=== PATIENT | female | born 1950 | race Caucasian/White ===

== ENCOUNTER 2017-11-29 12:04 | Inpatient (IN) | payer BC, MEDICARE ==
[2017-11-29] MEDS ORDERED: NORMAL SALINE 1000 ML 1,000 ML IV ONE ×3 (12:55→17:44)
[2017-11-29 13:35] LABS: VENOUS BLOOD BASE EXCESS 0.1 mmol/L; VENOUS BLOOD HCO3 26.2 mmol/L (20-32); VENOUS BLOOD PCO2 48.5 mmHg (35-63); VENOUS BLOOD PH 7.35 (7.30-7.42)
[2017-11-29 13:40] LABS: HEMATOCRIT 28.7 % (36.0-47.0); HEMOGLOBIN 9.6 g/dL (12.0-15.5); MEAN CORPUSCULAR HEMOGLOBIN 29.7 pg (27.0-33.4); MEAN CORPUSCULAR HGB CONC 33.6 g/dL (32.0-36.0); MEAN CORPUSCULAR VOLUME 88 fl (80-97); PLATELET COUNT 211 10^3/uL (150-450); RED BLOOD COUNT 3.25 10^6/uL (3.72-5.28); RED CELL DISTRIBUTION WIDTH 16.3 % (11.5-14.0); WHITE BLOOD COUNT 7.9 10^3/uL (4.0-10.5)
[2017-11-29 13:52] LABS: ALANINE AMINOTRANSFERASE 22 U/L (9-52); ALBUMIN 3.4 g/dL (3.5-5.0); ALKALINE PHOSPHATASE 58 U/L (38-126); ANION GAP 12 (5-19); ASPARTATE AMINO TRANSFERASE 40 U/L (14-36); BILIRUBIN,DIRECT 0.3 mg/dL (0.0-0.4); BILIRUBIN,TOTAL 0.5 mg/dL (0.2-1.3); BLOOD UREA NITROGEN 16 mg/dL (7-20); CALCIUM 8.2 mg/dL (8.4-10.2); CARBON DIOXIDE 24 mmol/L (22-30); CHLORIDE 103 mmol/L (98-107); GLUCOSE 87 mg/dL (75-110); POTASSIUM 4.4 mmol/L (3.6-5.0); SODIUM 138.7 mmol/L (137-145); TOTAL PROTEIN 6.5 g/dL (6.3-8.2)
[2017-11-29 14:11] LABS: ABSOLUTE LYMPHOCYTES# (MANUAL) 0.6 10^3/uL (0.5-4.7); ABSOLUTE MONOCYTES # (MANUAL) 0.5 10^3/uL (0.1-1.4); ABSOLUTE NEUTROPHILS# (MANUAL) 6.8 10^3/uL (1.7-8.2); ANISOCYTOSIS SLIGHT; BAND NEUTROPHILS % (MANUAL) 7 % (3-5); BASOPHILS % (MANUAL) 1 % (0-2); EOSINOPHILS % (MANUAL) 0 % (0-6); LYMPHOCYTES % (MANUAL) 7 % (13-45); MONOCYTES % (MANUAL) 6 % (3-13); PLATELET COMMENT ADEQUATE; SEGMENTED NEUTROPHILS % (MAN) 79 % (42-78); TOTAL CELLS COUNTED 100; TOXIC GRANULATION SLIGHT; TOXIC VACUOLATION PRESENT
--- NOTE | 2017-11-29 14:26 | RADIOLOGY REPORT (SQ) ---
EXAM DESCRIPTION: CHEST 2 VIEWS COMPLETED DATE/TIME: 11/29/2017 1:52 pm REASON FOR STUDY: cough, SOB, LLL crackles COMPARISON: None. EXAM PARAMETERS: NUMBER OF VIEWS: two views TECHNIQUE: Digital Frontal and Lateral radiographic views of the chest acquired. RADIATION DOSE: NA LIMITATIONS: none FINDINGS: LUNGS AND PLEURA: There is pleural thickening with ground-glass opacities at the right upp er lobe. No pleural effusion or pneumothorax. MEDIASTINUM AND HILAR STRUCTURES: Contour within normal limits. HEART AND VASCULAR STRUCTURES: Heart normal size. No evidence for failure. BONES: Degenerative changes at the spine. HARDWARE: Surgical clips are noted at the left lower hemithorax. OTHER: There is a large hiatal hernia. IMPRESSION: 1. Pleural thickening with ground-glass opacities at the right upper lobe, may represen t chronic change versus pneumonia or neoplasm. No prior studies are available for comparison. Evalu ation with CT thorax as clinically warranted. 2. Large hiatal hernia. TECHNICAL DOCUMENTATION: JOB ID: [id number] 2010 [employer]- All Rights Reserved Reading location - IP/workstation name: [email or web address]
[2017-11-29] MEDS ORDERED: CEFTRIAXONE 1 GM/D5W RTU 1 GM/50 ML RTUPB IV ONE (15:01)
[2017-11-29] MEDS ORDERED: ALBUTEROL SULFATE 0.083% NEB 2.5 MG/3 ML AMPUL NEB ONE ×2 (15:10)
[2017-11-29 16:02] LABS: ARTERIAL BLOOD BASE EXCESS -4.1 mmol/L; ARTERIAL BLOOD FIO2 6L; ARTERIAL BLOOD H2CO3 1.04 mmol/L (1.05-1.35); ARTERIAL BLOOD HCO3 20.1 mmol/L (20-26); ARTERIAL BLOOD O2 SATURATION 98.2 % (94-98); ARTERIAL BLOOD PCO2 34.5 mmHg (35-45); ARTERIAL BLOOD PH 7.38 (7.35-7.45); ARTERIAL BLOOD PO2 116.9 mmHg (80-100); ARTERIAL BLOOD TOTAL CO2 21.2 mmol/L (21-25)
--- NOTE | 2017-11-29 16:21 | ER Document Report ---
ED General - General Stated Complaint: SHORTNESS OF BREATH Time Seen by Provider: 11/29/17 12:40 Mode of Arrival: Medic Notes: 67-year-old female presents emergency department complaining of having a cold for the past 3 days. Patient states it started out as a productive cough but has progressively worsened and is now described as moderate shortness of breath with severe dyspnea on exertion. Patient states she was walking across the parking lot to go to work and she had to sit down she was so short of breath. Patient ended up calling 911 and was brought in by EMS. Patient was initially seen at [facility] however they transported her from [facility] to here because her blood pressure was 80/60 and she had an oxygen saturation of 92% on room air. Patient denies any chest pain, complains of chronic rhinorrhea but no new rhinorrhea. Patient admits sweats and chills at home but states her thermometer was broken. - Related Data Allergies/Adverse Reactions: No Known Allergies Allergy (Verified 12/08/13 07:38) Past Medical History - General Information source: Patient - Social History Smoking Status: Never Smoker Frequency of alcohol use: Occasional Drug Abuse: None Family History: CAD - Past Medical History Cardiac Medical History: Denies: Hx Coronary Artery Disease, Hx Heart Attack, Hx Hypertension Pulmonary Medical History: Denies: Hx Asthma, Hx Bronchitis, Hx COPD, Hx Pneumonia Neurological Medical History: Denies: Hx Cerebrovascular Accident, Hx Seizures Musculoskeletal Medical History: Denies Hx Arthritis Past Surgical History: Denies: Hx Hysterectomy, Hx Pacemaker - Immunizations Hx Diphtheria, Pertussis, Tetanus Vaccination: Yes Review of Systems - Review of Systems Constitutional: See HPI, Chills, Diaphoresis, Fever EENT: See HPI - Chronic rhinorrhea Cardiovascular: See HPI, Dyspnea Respiratory: See HPI, Cough, Short of breath -: Yes All other systems reviewed and negative Physical Exam - Vital signs Vitals: No tachypnea, no tachycardia, afebrile, 95% on room air while resting in the bed. At 1622 the patient has a heart rate of 95, pulse ox of 98% on 4 L, blood pressure of 106/61. Please see nursing notes which will be eventually updated to include vitals throughout her emergency department stay. - Notes Notes: GENERAL: Alert, interacts well. No acute distress. HEAD: Normocephalic, atraumatic EYES: Pupils equal, round and reactive to light, extraocular movements intact. ENT: Oral mucosa moist, tongue midline. NECK: Full range of motion, supple, trachea midline. LUNGS: Left lower lobe rhonchi, trace expiratory wheezing in the left lower lobe , otherwise clear to auscultation, initially no respiratory distress whatsoever.. HEART: Regular rate and rhythm, no murmurs, gallops, rubs. ABDOMEN: Soft, nontender, nondistended, bowel sounds present in all 4 quadrants. EXTREMITIES: Moves all 4 extremities spontaneously, no edema, radial and dorsalis pedis pulses 2/4 bilaterally. No cyanosis. NEUROLOGICAL: Alert and oriented x3, normal speech. PSYCH: Normal mood, normal affect. SKIN: Warm, Dry, normal turgor, no rashes or lesions noted. Course - Re-evaluation Re-evalutation: 11/29/17 16:24 CBC shows chronic anemia with hemoglobin 9.6, there is a bandemia although there is not need cytosis, CMP grossly unremarkable, calcium slightly low at 8.2 , chest x-ray surprisingly shows right upper lobe pleural thickening versus ground with groundglass opacities which represents chronic change versus pneumonia or neoplasm. There is also a large hiatal hernia. Partly through her emergency department stay the patient became cyanotic around her lips and fingertips and her fingers were quite cool, we had a very poor we are waiting on the pulse oximeter, we warmed her hands her pulse oximeter actually read 94% on 4 L via nasal cannula. Arterial blood gas showed PCO2 of 34.5, PO2 of 116.9 and an oxygen saturation of 98.2%. This supports my suspicion that the patient is not truly hypoxic and that the pallor and appearance of cyanosis peripherally is more related to vasoconstriction rather than true hypoxia. Patient did have trace wheezing so she was given albuterol. Discussed the patient with Dr. Cardoso from the hospitalist service who agrees to admit the patient to her service. Patient was given antibiotics in the form of Rocephin. EKG is not ischemic. - Laboratory Result Diagrams: 11/29/17 13:20 11/29/17 13:20 Laboratory results interpreted by me: 11/29/17 11/29/17 11/29/17 13:20 13:20 15:30 RBC 3.25 L Hgb 9.6 L Hct 28.7 L RDW 16.3 H Seg Neuts % (Manual) 79 H Band Neutrophils % 7 H Lymphocytes % (Manual) 7 L Carbonic Acid 1.04 L ABG pCO2 34.5 L ABG pO2 116.9 H ABG O2 Saturation 98.2 H Calcium 8.2 L AST 40 H Albumin 3.4 L - EKG Interpretation by Me Additional EKG results interpreted by me: 11/29/17 16:26 EKG shows sinus rhythm at a rate of 85, normal axis, normal intervals, no ST segment elevations or depressions, there is rapid R-wave progression per my interpretation. Discharge - Discharge Clinical Impression: Right upper lobe pneumonia Qualifiers: Pneumonia type: due to unspecified organism Qualified Code(s): J18.1 - Lobar pneumonia, unspecified organism Condition: Fair Disposition: ADMITTED INPATIENT Admitting Provider: [place] [facility] Unit Admitted: IMCU Referrals: HUGO NAVARRO FNP [Primary Care Provider] - Follow up as needed
[2017-11-29] MEDS ORDERED: ACETAMINOPHEN 325 MG TABLET PO PRN (17:26)
[2017-11-29] MEDS ORDERED: NORMAL SALINE 1000 ML 1,000 ML IV PRN (17:26)
[2017-11-29] MEDS ORDERED: CEFTRIAXONE SODIUM 1,000 MG in DEXTROSE 5%-WATER 50 ML IV ONE (17:30)
[2017-11-29] MEDS ORDERED: IPRATROPIUM/ALBUTEROL 0.5-2.5 MG/3 ML AMPUL NEB PRN (17:51)
[2017-11-29] MEDS ORDERED: BENZOCAINE/MENTHOL SORE THROAT LOZENGE BUCCAL PRN (17:52)
[2017-11-29] MEDS ORDERED: IPRATROPIUM/ALBUTEROL 0.5-2.5 MG/3 ML AMPUL NEB ONE (18:03)
--- NOTE | 2017-11-29 18:05 | PDOC H&P ---
History of Present Illness Admission Date/PCP: 11/29/17 16:35 JUAN ANTONIO MADERA Patient complains of: shortness of breath History of Present Illness: 67-year-old female presents emergency department complaining of having old symptoms for the past 3 days. Patient states it started out as a productive cough but has progressively worsened and is now described as moderate shortness of breath with severe dyspnea on exertion. sHe has had chills but no fevers at home. Patient states she was walking across the parking lot to go to work and she had to sit down she was so short of breath. Patient ended up calling 911 and was brought in by EMS. Patient was initially seen at [facility] however they transported her from [facility] to here because her blood pressure was 80/60 and she had an oxygen saturation of 92% on room air. Patient denies any chest pain, no hemoptysis, no nausea vomiting or abdominal pain. She is being admitted to the hospitalist with a newly acquired pneumonia and acute hypoxemic respiratory failure. Past Medical History Cardiac Medical History: Reports: Heart Murmur - Mitral regurg, Other - Hypertrophic cardiomyopathy Denies: Coronary Artery Disease, Myocardial Infarction, Hypertension Pulmonary Medical History: Denies: Asthma, Bronchitis, Chronic Obstructive Pulmonary Disease (COPD), Pneumonia EENT Medical History: Denies: Eyes, Ears, Nose Neurological Medical History: Denies: Ischemic CVA, Seizures Endocrine Medical History: Denies: Diabetes Mellitus Type 2, Hypothyroidism Renal/ Medical History: Denies: Chronic Kidney Disease Malignancy Medical History: Denies: None GI Medical History: Reports: Hiatal Hernia Denies: Gastroesophageal Reflux Disease Musculoskeltal Medical History: Denies: Arthritis Psychiatric Medical History: Reports: Depression, General Anxiety Disorder Denies: Alcohol Dependency, Substance Abuse, Tobacco Dependency Traumatic Medical History: Reports: None Hematology: Denies: Anemia, Bleeding Tendencies Infectious Medical History: Denies: None Past Surgical History Past Surgical History: Reports: Cholecystectomy, Orthopedic Surgery - left breast lumpectomy (no cancer), Other Social History Information Source: Patient, Emergency Med Personnel Lives with: Alone Smoking Status: Former Smoker Number of Years Smokin - quit 3 yrs ago Last Time Smoked: 3 years Frequency of Alcohol Use: Rare - two times a month Hx Recreational Drug Use: No Drugs: None Hx Prescription Drug Abuse: No Past Social History Note: works at [employer], 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 [place] - Advance Directive Resuscitation Status: Do Not Resuscitate Surrogate healthcare decision maker:: brother Kris Whaley Family History Family History: CAD, Malignancy Parental Family History Reviewed: Yes - mom- at 99, dad lung CA Children Family History Reviewed: NA Sibling(s) Family History Reviewed.: Yes - brother Tor with PVCs Medication/Allergy Home Medications: Propranolol HCl 40 mg PO Q8 12/08/13 Alprazolam [Xanax] 1 mg PO BIDP PRN 11/29/17 Duloxetine HCl [Cymbalta] 30 mg PO Q12 11/29/17 Gabapentin [Neurontin 300 mg Capsule] 300 mg PO Q12 11/29/17 Zolpidem Tartrate [Ambien 5 mg Tablet] 10 mg PO HSP PRN 11/29/17 Allergies/Adverse Reactions: No Known Allergies Allergy (Verified 12/08/13 07:38) Review of Systems Constitutional: PRESENT: chills, fatigue, weakness Eyes: ABSENT: visual disturbances Ears: ABSENT: hearing changes Nose, Mouth, and Throat: PRESENT: sore throat. ABSENT: mouth pain Breasts: PRESENT: other - left lumpectomy, non cancer found Cardiovascular: PRESENT: dyspnea on exertion, orthropnea, palpitations. ABSENT : edema Respiratory: PRESENT: cough, dyspnea Gastrointestinal: ABSENT: abdominal pain, nausea, vomiting Integumentary: ABSENT: wounds Neurological: ABSENT: confusion, focal weakness Psychiatric: PRESENT: anxiety, depression Hematologic/Lymphatic: ABSENT: easy bleeding, easy bruising Allergic/Immunologic: ABSENT: seasonal rhinorrhea Physical Exam Vital Signs: Temp Pulse Resp BP Pulse Ox 97.9 F 24 H 102/52 L 98 11/29/17 12:15 11/29/17 16:31 11/29/17 16:31 11/29/17 16:31 General appearance: PRESENT: no acute distress, cooperative, obese Head exam: PRESENT: atraumatic Eye exam: PRESENT: conjunctiva pink, scleral icterus Mouth exam: PRESENT: dry mucosa, tongue midline Neck exam: ABSENT: lymphadenopathy Respiratory exam: PRESENT: rales, rhonchi, unlabored. ABSENT: prolonged expiratory phas Cardiovascular exam: PRESENT: diastolic murmur, RRR Pulses: PRESENT: normal radial pulses GI/Abdominal exam: PRESENT: normal bowel sounds, soft. ABSENT: distended, tenderness Gentrourinary exam: ABSENT: indwelling catheter Extremities exam: ABSENT: +1 edema Musculoskeletal exam: PRESENT: ambulatory Neurological exam: PRESENT: alert, awake, oriented to person, oriented to place , oriented to situation, CN II-XII grossly intact Psychiatric exam: PRESENT: appropriate affect. ABSENT: anxious Skin exam: PRESENT: dry, intact, warm Results Impressions: Chest X-Ray 11/29/17 12:55 IMPRESSION: 1. Pleural thickening with ground-glass opacities at the right upper lobe, may represent chronic change versus pneumonia or neoplasm. No prior studies are available for comparison. Evaluation with CT thorax as clinically warranted. 2. Large hiatal hernia. Assessment & Plan - Diagnosis (1) Community acquired pneumonia Is this a current diagnosis for this admission?: Yes Plan: RUL lesion seen, possible PNA vs other including malignancy. Will treat her with ceftriaxone 1 gram IV daily and azithrmycin 500 mg IV daily. Patient is having intermittent wheezing for which she will receive duo nebs as needed every 4 hours. She also has a little bit of a sore throat, reports that her sore throat is probably secondary to coughing and she had a negative strep swab at her primary care doctor's office today. Will order lozenges for that. He is on oxygen for related hypoxemic respiratory failure. (2) Acute hypoxemic respiratory failure Is this a current diagnosis for this admission?: Yes Plan: If patient does end up having pneumonia this is secondary to the pneumonia. She also could have a malignancy which will need further evaluation. She has had hypotension. Because of the hypotension, hypoxemia, tachycardia and tachypnea I think it is prudent to wait for PE and so CTA of the chest has been ordered once her blood pressure stabilized. Is on 6 L of oxygen satting in the mid 90s now. He does not have a home O2 requirement. (3) Hypertrophic cardiomyopathy Is this a current diagnosis for this admission?: Yes Plan: She reports this is inherited. She is chest pain-free. No evidence of fluid overload. Will order BNP and cardiac enzymes in the setting of hypoxemia. (4) Hypotension Is this a current diagnosis for this admission?: Yes Plan: Probably related to infection though if she has a PE it could be related to that. For now she is receiving normal saline and is on her second liter with pressure responding to the fluids. She will also have maintenance IV fluids once the bolusing is completed. (5) Depression with anxiety Is this a current diagnosis for this admission?: Yes Plan: Patient has depression and anxiety medications, I do not know what her medication list is as she has asked us to get this from her PCP office. We are working on that. sHe is stable from this perspective. - Time Time Spent: 50 to 70 Minutes - Inpatient Certification Based on my medical assessment, after consideration of the patient's comorbidities, presenting symptoms, or acuity I expect that the services needed warrant INPATIENT care.: Yes I certify that my determination is in accordance with my understanding of Medicare's requirements for reasonable and necessary INPATIENT services [42 CFR 412.3e].: Yes Medical Necessity: Need Close Monitoring Due to Risk of Patient Decompensation, Need for IV Antibiotics, Risk of Complication if Not Cared For in Hospital
[2017-11-29 19:17] LABS: CREATINE KINASE MB 11.6 ng/mL (<4.55)
[2017-11-29 19:31] LABS: TROPONIN I 2.67 ng/mL
[2017-11-29] MEDS ORDERED: NORMAL SALINE 1000 ML 250 ML IV ONE (20:05)
--- NOTE | 2017-11-29 20:08 | RADIOLOGY REPORT (SQ) ---
EXAM DESCRIPTION: CTA CHEST COMPLETED DATE/TIME: 11/29/2017 7:06 pm REASON FOR STUDY: eval for PE COMPARISON: None. TECHNIQUE: CT scan of the chest performed using helical scanning technique with dynamic intravenous contrast injection. Images reviewed with lung, soft tissue and bone windows. Reconstructed coronal and sagittal MPR images reviewed. Additional 3 dimensional post-processing performed to develop Maximal Intensity Projection images ([place] P). All images stored on PACS. All CT scanners at this facility use dose modulation, iterative reconstruction, and/or weight based d osing when appropriate to reduce radiation dose to as low as reasonably achievable (ALARA). [facility]: Dose Right [facility]: CareDose [facility]: Dose Right [facility]: Teradose 4D [facility]: RadioRx CONTRAST TYPE AND DOSE: contrast/concentration: Isovue 370.00 mg/ml; Total Contrast Delivered: 70.0 ml; Total Saline Delivered: 60.0 ml Contrast bolus adequate for pulmonary arteries and aorta. RENAL FUNCTION: GFR > 60. RADIATION DOSE: CT Rad equipment meets quality standard of care and radiation dose reduction techniq ues were employed. CTDIvol: 15.4 - 19.8 mGy. DLP: 539 mGy-cm. . LIMITATIONS: None. FINDINGS: LUNGS AND PLEURA: Bilateral lower lobe subsegmental atelectasis. Scattered coarse interst itial thickening, parenchymal and subpleural. Scattered parenchymal ground-glass opacities. Mild ba silar fibrotic changes. Trace bilateral pleural effusions. AORTA AND GREAT VESSELS: No aneurysm. Contrast bolus not optimized for the aorta. HEART: No pericardial effusion. No significant coronary artery calcifications. PULMONARY ARTERIES: No emboli visualized in the main pulmonary arteries or the segmental branches. HILAR AND MEDIASTINAL STRUCTURES: 7 cm hiatus hernia. Scattered small mediastinal and hilar lymph no iraj. HARDWARE: None in the chest. UPPER ABDOMEN: No significant findings. Limited exam. THYROID AND OTHER SOFT TISSUES: No masses. No adenopathy. BONES: No acute finding. 3D MIPS: Confirm above findings. OTHER: No other significant finding. IMPRESSION: No emboli visualized in the main pulmonary arteries or the segmental branches. Chronic interstitial lung disease with mild basilar fibrotic changes. Recommend pulmonary consultati on if not previously obtained. COMMENT: Quality ID # [id number]: Final reports with documentation of one or more dose reduction techniques (e.g., Automated exposure control, adjustment of the mA and/or kV according to patient size, use of iterative reconstruction technique) TECHNICAL DOCUMENTATION: JOB ID: [id number] 2010 [employer]- All Rights Reserved Reading location - IP/workstation name: [email or web address]
[2017-11-29] MEDS ORDERED: GUAIFENESIN 600 MG TABLET.SA PO SCH (22:00)
--- NOTE | 2017-11-29 22:00 | PDOC TRANSFER SUMMARY ---
General Admission Date/PCP: 11/29/17 16:35 HUGO NAVARROJUAN ANTONIO Admission Date: 11/29/17 Transfer Date: 11/29/17 Accepting Facility: [facility] Accepting Physician: Dr. Pierre Resuscitation Status: Do Not Resuscitate - Transfer Diagnosis (1) Community acquired pneumonia Is this a current diagnosis for this admission?: Yes Diagnosis Summary: Patient had dyspnea in the ER. Chest x-ray showed right upper lobe lesion possible pneumonia versus malignancy. She is currently on ceftriaxone and azithromycin. (2) Acute hypoxemic respiratory failure Is this a current diagnosis for this admission?: Yes Diagnosis Summary: Related to possible pneumonia and possible non-ST elevation VT. Patient is on 6 L of nasal cannula oxygen and satting in the 90s. We are treating pneumonia. Patient is being transferred for for elevated troponin in the setting of hypertrophic cardiomyopathy. (3) Hypertrophic cardiomyopathy Is this a current diagnosis for this admission?: Yes Diagnosis Summary: Patient does not have much information related to her cardiomyopathy at this time though states that she has seen a body worker in the past. She believes that her mother had and that her brother also has cardiomyopathy. She has not had recent syncope. Does have a mitral regurgitant murmur on exam. Echocardiogram and cardiology consult have been ordered. (4) Hypotension Is this a current diagnosis for this admission?: Yes Diagnosis Summary: Related to hyper trophic cardiomyopathy, pneumonia, possible volume depletion, elevated troponin. Patient has responded well to fluid bolusing and we have not had to start pressors. We will continue to bolus with normal saline as needed to keep pressure elevated and also she is now on maintenance IV fluids. (5) Depression with anxiety Is this a current diagnosis for this admission?: Yes Diagnosis Summary: This is a long-standing diagnosis. Medication reconciliation is pending so that we can start patient on her medications for depression and anxiety. (6) Lesion of right lung Is this a current diagnosis for this admission?: Yes Diagnosis Summary: Chest x-ray shows right upper lobe lung lesion, possible pneumonia, cannot rule out malignancy. This will need further evaluation. (7) Elevated troponin Is this a current diagnosis for this admission?: Yes Diagnosis Summary: Patient's EKG does not show ST elevations. Her troponin is 2.6, second troponin is pending. She is having dyspnea but no other chest pain. Cardiology consult has been placed while she is awaiting transfer. - Transfer Medications Home Medications: Propranolol HCl 40 mg PO Q8 12/08/13 Alprazolam [Xanax] 1 mg PO BIDP PRN 11/29/17 Duloxetine HCl [Cymbalta] 30 mg PO Q12 11/29/17 Gabapentin [Neurontin 300 mg Capsule] 300 mg PO Q12 11/29/17 Zolpidem Tartrate [Ambien 5 mg Tablet] 10 mg PO HSP PRN 11/29/17 Transfer Medications: Current Medications Acetaminophen (Tylenol 325 Mg Tablet) 650 mg PO Q4HP PRN PRN Reason: pain or temp greater than 101F Stop: 12/29/17 17:25 Albuterol/Ipratropium (Duoneb 3 Ml Ampul) 3 ml NEB RTQ4HP PRN PRN Reason: SHORTNESS OF BREATH Stop: 12/29/17 17:50 Enoxaparin Sodium (Lovenox Inj 40 Mg/0.4 Ml Disp.Syrin) 40 mg SUBCUT DAILY SIMEON Stop: 12/30/17 09:59 Guaifenesin (Mucinex Sr 600 Mg Tablet.Sa) 600 mg PO Q12 SIMEON Stop: 12/29/17 21:59 Azithromycin 500 mg/ Dextrose 250 mls @ 250 mls/hr IV DAILY SIMEON Stop: 12/07/17 09:59 Sodium Chloride (Nacl 0.9% 1000 Ml Iv Soln) 1,000 mls @ 100 mls/hr IV CONTINUOUS PRN PRN Reason: THIS MED IS NOT "PRN" Stop: 12/29/17 17:25 Ceftriaxone Sodium 1,000 mg/ (Dextrose) 50 mls @ 100 mls/hr IV DAILY SIMEON Stop: 12/07/17 09:59 Sodium Chloride (Saline Flush 2.5 Ml Monoject Prefil Syrin) 2.5 ml IV Q8 SIMEON Stop: 12/29/17 21:59 Throat Lozenges (Chloraseptic Sore Throat Lozenge) 1 each BUCCAL Q4HP PRN PRN Reason: FOR SORE THROAT Stop: 12/29/17 17:51 - Allergies Allergies/Adverse Reactions: No Known Allergies Allergy (Verified 12/08/13 07:38) - Diet/Activity Discharge Diet: Other (Comments) - npo Hospital Course Hospital Course: The see problem list for hospital course. Patient was admitted today and several hours later, now, I am transferring her secondary to hypertrophic cardiomyopathy, elevated troponin and hypotension. Physical Exam Vital Signs: Temp Pulse Resp BP Pulse Ox 97.9 F 20 109/61 100 11/29/17 12:15 11/29/17 21:15 11/29/17 21:15 11/29/17 21:15 General appearance: PRESENT: mild distress, obese Head exam: PRESENT: atraumatic, normocephalic Ear exam: PRESENT: normal external ear exam Mouth exam: PRESENT: moist, tongue midline Respiratory exam: PRESENT: rhonchi, wheezes. ABSENT: rales, unlabored Cardiovascular exam: PRESENT: RRR, systolic murmur Pulses: PRESENT: normal radial pulses GI/Abdominal exam: PRESENT: normal bowel sounds, soft. ABSENT: distended, tenderness Rectal exam: PRESENT: deferred Musculoskeletal exam: PRESENT: ambulatory Neurological exam: PRESENT: alert, awake, oriented to person, oriented to place , CN II-XII grossly intact Psychiatric exam: PRESENT: appropriate affect. ABSENT: anxious Skin exam: PRESENT: dry, intact, warm, other Results Impressions: Chest/Abdomen CTA 11/29/17 00:00 IMPRESSION: No emboli visualized in the main pulmonary arteries or the segmental branches. Chronic interstitial lung disease with mild basilar fibrotic changes. Recommend pulmonary consultation if not previously obtained. Chest X-Ray 11/29/17 12:55 IMPRESSION: 1. Pleural thickening with ground-glass opacities at the right upper lobe, may represent chronic change versus pneumonia or neoplasm. No prior studies are available for comparison. Evaluation with CT thorax as clinically warranted. 2. Large hiatal hernia. Plan Discharge Plan: She is being transferred to [facility], I have spoken with hospitalist and body worker and she has been accepted. Night hospitalist will continue care at this time. Time Spent: Greater than 30 Minutes
--- NOTE | 2017-11-29 22:10 | EKG REPORT ---
SEVERITY:- ABNORMAL ECG - SINUS RHYTHM NONSPECIFIC T ABNORMALITIES, ANT-LAT LEADS PROLONGED QT INTERVAL : Confirmed by: Pasha Xiong 29-Nov-2017 22:09:53
--- NOTE | 2017-11-29 22:10 | EKG REPORT ---
SEVERITY:- NORMAL ECG - SINUS RHYTHM : Confirmed by: Pasha Xiong 29-Nov-2017 22:10:00
--- NOTE | 2017-11-29 23:15 | Progress Note ---
Provider Note Provider Note: Patient seen and examined. Patient noted to have significantly elevated troponin I and also BNP level. Patient has a history of cardiomyopathy. Troponin I elevation is somewhat concerning. EKG showing new T-wave inversion in V1 and V2. In view of positive troponin I, which seem significant and elevated BNP, agreed that patient will benefit from transfer to tertiary care for heart catheterization. Please also note that patient was transiently hypotensive. Had advised hospitalist to order a stat echo. That echo was performed. Echo was technically difficult. Overall LVEF was noted to be within normal limits. Mild mitral regurgitation, mild tricuspid regurgitation with mild to moderate pulmonary hypertension noted. Regional wall motion cannot be excluded or confirmed. Could not see apex very well. Cannot rule out distal anterior wall and apical hypokinesis. Overall quality of the echo was suboptimal. No pericardial effusion was noted.
[2017-11-29 23:53] LABS: CREATINE KINASE MB 8.13 ng/mL (<4.55)
[2017-11-30 00:01] LABS: TROPONIN I 2.99 ng/mL
[2017-11-30 02:32] VITALS: BP 105/58
[2017-11-30] MEDS ORDERED: CEFTRIAXONE 1 GM/D5W RTU 50 ML IV SCH (10:00)
[2017-11-30] MEDS ORDERED: CEFTRIAXONE SODIUM 1,000 MG in DEXTROSE 5%-WATER 50 ML IV SCH (10:00)
[2017-11-30] MEDS ORDERED: ENOXAPARIN SODIUM INJ 40 MG/0.4 ML DISP.SYRIN SUBCUT SCH (10:00)
[2017-11-30] MEDS ORDERED: AZITHROMYCIN 500 MG in DEXTROSE 5%-WATER 250 ML IV SCH (10:00)
--- NOTE | 2017-11-30 11:14 | XCELERA REPORT ---
[address] [address] Transthoracic Echocardiogram Report Name: JORGE LUIS GALEANO Age: 67 yrs Gender: Female : 1950 Patient Status: Inpatient Patient Location: [address] [place], [place] [address] Study Date: 11/29/2017 10:52 PM Height: 62 in Weight: 170 lb BSA: 1.8 m2 Procedure: A complete two-dimensional transthoracic echocardiogram was performed (2D, M-mode, spectral and color flow Doppler). The study was technically difficult with many images being suboptimal in quality. Reason For Study: hypertrophic cardiomyopathy and hypotension Ordering Physician: JUANA GONZALEZ Performed By: Joel Brandt Interpretation Summary The left ventricular ejection fraction is normal. There is mild concentric left ventricular hypertrophy. The left ventricle is grossly normal size. LV diastolic function not assessed. There is distal anterior wall mild hypokinesis The right ventricular systolic function is normal. The right ventricle is grossly normal size. The right atrium is normal. Borderline left atrial enlargement. There is a mild amount of mitral regurgitation There is no mitral valve stenosis. No aortic regurgitation is present. There is no aortic valve stenosis There is a mild amount of tricuspid regurgitation There is mild to moderate pulmonary hypertension by echo Right ventricular systolic pressure is estimated to be elevated at 40- 50mmHg. The aortic root is not well visualized but is probably normal size. The inferior vena cava was not visualized There is no pericardial effusion. MMode/2D Measurements & Calculations RVDd: 3.5 cm LVIDd: 4.8 cm FS: 42.6 % Ao root diam: 3.1 cm IVSd: 0.67 cm LVIDs: 2.8 cm EDV(Teich): 108.4 ml LVPWd: 0.64 cmESV(Teich): 28.6 ml Ao root area: 7.4 cm2 EF(Teich): 73.6 % LA dimension: 3.4 cm LVOT diam: 1.5 cm LVOT area: 1.7 cm2 Doppler Measurements & Calculations Ao V2 max: 176.5 cm/sec LV V1 max P.6 mmHg TV V2 max: 327.1 cm/sec Ao max P.5 mmHg LV V1 max: 170.3 cm/sec TV max P.8 mmHg ALLISON(V,D): 1.7 cm2 Left Ventricle The left ventricle is grossly normal size. There is mild concentric left ventricular hypertrophy. The left ventricular ejection fraction is normal. LV diastolic function not assessed. There is distal anterior wall mild hypokinesis. Right Ventricle The right ventricle is grossly normal size. There is normal right ventricular wall thickness. The right ventricular systolic function is normal. Atria The right atrium is normal. Borderline left atrial enlargement. Interarterial septum not well visualized and not well dopplered. Cannot comment on ASD/PFO presence. Mitral Valve The mitral valve is grossly normal. There is no mitral valve stenosis. There is a mild amount of mitral regurgitation. Aortic Valve The aortic valve opens well. The aortic valve is not well visualized secondary to technical limitations. There is no aortic valve stenosis. No aortic regurgitation is present. Tricuspid Valve The tricuspid valve is not well visualized, but is grossly normal. There is no tricuspid stenosis. There is a mild amount of tricuspid regurgitation. There is mild to moderate pulmonary hypertension by echo. Right ventricular systolic pressure is estimated to be elevated at 40-50mmHg. Pulmonic Valve The pulmonic valve is not well visualized. Great Vessels The aortic root is not well visualized but is probably normal size. The inferior vena cava was not visualized. Effusions There is no pericardial effusion. : JUANA GONZALEZ > Pasha Xiong
--- NOTE | 2017-11-30 11:53 | PDOC CONSULTATION ---
History of Present Illness Admission Date/PCP: 11/29/17 16:35 JUAN ANTONIO MADERA Patient complains of: dyspnea History of Present Illness: JORGE LUIS GALEANO is a 67 year old female presents emergency department complaining of having cold symptoms for the past 3 days. Patient states it started out as a productive cough but has progressively worsened and is now described as moderate shortness of breath with severe dyspnea on exertion. sHe has had chills but no fevers at home. Patient states she was walking across the parking lot to go to work and she had to sit down she was so short of breath. Patient ended up calling 911 and was brought in by EMS. Patient was initially seen at [facility] however they transported her from [facility] to here because her blood pressure was 80/60 and she had an oxygen saturation of 92% on room air. Patient denies any chest pain, no hemoptysis, no nausea vomiting or abdominal pain. She is being admitted to the hospitalist with a newly acquired pneumonia and acute hypoxemic respiratory failure. This history was reviewed and confirmed. Patient was given multiple boluses of normal saline following which her blood pressure improved. Patient however complained of shortness of breath but denied any chest pain as such. Patient describes history of cardiomyopathy. Subsequently her troponin I came by elevated. She was also noted to have some EKG changes. I was asked to see patient in consultation. Past Medical History Cardiac Medical History: Reports: Heart Murmur - Mitral regurg, Other - Hypertrophic cardiomyopathy Denies: Coronary Artery Disease, Myocardial Infarction, Hypertension Pulmonary Medical History: Denies: Asthma, Bronchitis, Chronic Obstructive Pulmonary Disease (COPD), Pneumonia EENT Medical History: Denies: Eyes, Ears, Nose Neurological Medical History: Denies: Ischemic CVA, Seizures Endocrine Medical History: Denies: Diabetes Mellitus Type 2, Hypothyroidism Renal/ Medical History: Denies: Chronic Kidney Disease Malignancy Medical History: Denies: None GI Medical History: Reports: Hiatal Hernia Denies: Gastroesophageal Reflux Disease Musculoskeltal Medical History: Denies: Arthritis Psychiatric Medical History: Reports: Depression, General Anxiety Disorder Denies: Alcohol Dependency, Substance Abuse, Tobacco Dependency Traumatic Medical History: Reports: None Hematology: Denies: Anemia, Bleeding Tendencies Infectious Medical History: Denies: None Past Surgical History Past Surgical History: Reports: Cholecystectomy, Orthopedic Surgery - left breast lumpectomy (no cancer), Other Denies: Hysterectomy, Pacemaker Social History Information Source: Patient Lives with: Alone Smoking Status: Former Smoker Number of Years Smokin - quit 3 yrs ago Last Time Smoked: 3 years Frequency of Alcohol Use: Rare - two times a month Hx Recreational Drug Use: No Drugs: None Hx Prescription Drug Abuse: No - Advance Directive Resuscitation Status: Do Not Resuscitate Surrogate healthcare decision maker:: Surrogate decision maker is David Prabhjot Family History Family History: CAD, Malignancy Parental Family History Reviewed: Yes Children Family History Reviewed: Yes Sibling(s) Family History Reviewed.: Yes Medication/Allergy Home Medications: Propranolol HCl 40 mg PO Q8 12/08/13 Acetaminophen [Tylenol 325 mg Tablet] 650 mg PO Q4HP PRN tablet 11/29/17 Alprazolam [Xanax] 1 mg PO BIDP PRN 11/29/17 Azithromycin [Zithromax Inj 500 mg Vial] 500 mg IV DAILY vial 11/29/17 Benzocaine/Menthol [Chloraseptic Sore Throat Lozenge] 1 each BUCCAL Q4HP PRN lozenge 11/29/17 Ceftriaxone Sodium [Rocephin Inj 1000 mg Vial] 1,000 mg IV DAILY vial 11/29/17 Duloxetine HCl [Cymbalta] 30 mg PO Q12 11/29/17 Enoxaparin Sodium [Lovenox Inj 40 mg/0.4 ml Disp.syrin] 40 mg SUBCUT DAILY disp.syrin 11/29/17 Gabapentin [Neurontin 300 mg Capsule] 300 mg PO Q12 11/29/17 Guaifenesin [Mucinex Sr 600 mg Tablet.sa] 600 mg PO Q12 tablet.sa 11/29/17 Ipratropium/Albuterol Sulfate [Duoneb 3 ml Ampul] 3 ml NEB RTQ4HP PRN vial.neb 11/29/17 Normal Saline [Saline Flush 2.5 ml Monoject Prefil Syrin] 2.5 ml IV Q8 disp.syrin 11/29/17 Zolpidem Tartrate [Ambien 5 mg Tablet] 10 mg PO HSP PRN 11/29/17 Allergies/Adverse Reactions: No Known Allergies Allergy (Verified 12/08/13 07:38) Review of Systems Review of Systems: Please see history of present illness and past medical history as wall. Constitutional: Low-grade fever or chills reported. Head : No recent chronic headaches, recent head injury. Eyes: No recent eye pain, diplopia, redness, discharge, acute visual changes. Ears: No recent chronic ear pain, acute hearing loss, ear discharge. Oral cavity: No recent ulcerations, bleeding, oral cavity discomfort. Neck: No recent acute neck pain reported. Hematologic: No recent easy bruising or bleeding. Lymphatic: No recent lymph node enlargement reported. Cardiovascular system review: See history of present illness. Respiratory system review: No hemoptysis or blood clots in the lungs reported. Mild Shortness of breath on exertion complaints of recent cough and increased shortness of breath. Gastrointestinal system review: Negative for any recent acute hematemesis, melena. Genitourinary system review: No recent acute or chronic hematuria, flank pain, UTI etc. reported. Skin system review: Negative for any recent abnormal bruising, no rash, no pruritus reported. Neurologic: No prior history of strokes, mini strokes, seizure disorder. Psychologic: No history of major psychosis or major depression reported. Musculoskeletal: Minor aches and pains reported. No acute joint swelling reported. Endocrine: No recent polyuria, polydipsia, recent heat or cold intolerance. Physical Exam Vital Signs: Temp Pulse Resp BP Pulse Ox 97.9 F 28 H 102/71 100 11/29/17 12:15 11/29/17 22:06 11/29/17 22:07 11/29/17 22:04 Results Impressions: Chest/Abdomen CTA 11/29/17 00:00 IMPRESSION: No emboli visualized in the main pulmonary arteries or the segmental branches. Chronic interstitial lung disease with mild basilar fibrotic changes. Recommend pulmonary consultation if not previously obtained. Chest X-Ray 11/29/17 12:55 IMPRESSION: 1. Pleural thickening with ground-glass opacities at the right upper lobe, may represent chronic change versus pneumonia or neoplasm. No prior studies are available for comparison. Evaluation with CT thorax as clinically warranted. 2. Large hiatal hernia. Assessment & Plan - Diagnosis (1) NSTEMI (non-ST elevated myocardial infarction) Is this a current diagnosis for this admission?: Yes (2) Pulmonary edema Qualifiers: Chronicity: acute Qualified Code(s): J81.0 - Acute pulmonary edema Is this a current diagnosis for this admission?: Yes (3) Acute hypoxemic respiratory failure Is this a current diagnosis for this admission?: Yes (4) Elevated troponin Is this a current diagnosis for this admission?: Yes (5) Hypertrophic cardiomyopathy Is this a current diagnosis for this admission?: Yes (6) Hypotension Qualifiers: Hypotension type: unspecified hypotension type Qualified Code(s): I95.9 - Hypotension, unspecified Is this a current diagnosis for this admission?: Yes - Notes Notes: Patient is noted to have both elevated troponin I and CK-MB. In addition patient has elevated BNP and chest x-ray as well as CT scan suggest pulmonary edema. Overall therefore patient presents with high risk presentation. Agree with the decision to transfer to tertiary care. A stat 2D echo was performed prior to transfer which showed suspicion of distal anterior wall hypokinesia. Overall LVEF is within normal limit. Patient will benefit from a heart catheterization. Currently situation however is not clear whether patient troponin I elevation is related to acute coronary syndrome versus sepsis versus pneumonia versus hypoxemia etc. however in view of significant elevated troponin I, possible wall motion abnormality, patient will benefit from a heart catheterization eventually. Acute respiratory failure with hypoxemia: Possibly related to pulmonary edema either infectious or cardiogenic. Continue oxygenation and use intermittent noninvasive positive pressure ventilation. May consider endotracheal intubation if conditions deteriorate. Pulmonary edema: Most likely cardiogenic but cannot rule out pneumonia, recommend treating patient for both. Hypertrophic cardiomyopathy: Patient just noted to have mild LVH. No significant LVOT gradient noted on stat echo. Hypotension: Possible ischemia versus sepsis, currently resolved with IV fluid boluses without worsening dyspnea therefore could well be sepsis related but one cannot be sure. There were no other indication for sepsis. Overall did not think patient had sepsis presentation. - Time Time Spent: 30 to 50 Minutes Medications reviewed and adjusted accordingly: Yes
== END 2017-11-30 00:39 | disposition short-term general hospital (02) | DRG 193 ==
LOC: ER 12:04 → EH 16:35 → 3W 22:21
PROVIDERS: ADMIT Internal Medicine; ATTEND Internal Medicine
PROC: 3E0F73Z Introduction of Anti-inflammatory into Respiratory Tract, Via Natural or Artificial Opening (ICD-10-PCS; principal; 2017-11-29)
DX: J18.9 Pneumonia, unspecified organism (principal); J96.01 Acute respiratory failure with hypoxia; J81.0 Acute pulmonary edema; I21.4 Non-ST elevation (NSTEMI) myocardial infarction; I42.2 Other hypertrophic cardiomyopathy; Z66 Do not resuscitate; F32.9 Major depressive disorder, single episode, unspecified; R91.1 Solitary pulmonary nodule; I95.9 Hypotension, unspecified; K44.9 Diaphragmatic hernia without obstruction or gangrene; I34.0 Nonrheumatic mitral (valve) insufficiency; F41.1 Generalized anxiety disorder; Z79.899 Other long term (current) drug therapy; Z90.49 Acquired absence of other specified parts of digestive tract; Z60.2 Problems related to living alone; Z87.891 Personal history of nicotine dependence; Z82.49 Family history of ischemic heart disease and other diseases of the circulatory system; Z80.1 Family history of malignant neoplasm of trachea, bronchus and lung
CPT/HCPCS: 36415; 36600; 71046; 71275; 80053; 82550; 82553; 82803; 83605; 83880; 84484; 85025; 87040; 87077; 87186; 93005; 93010; 93306; 94640; 96360; 99285; J0696; J7030

== ENCOUNTER 2018-01-23 10:58 | Emergency (ER) | payer BC, MEDICARE ==
[2018-01-23 11:04] VITALS: BP 158/90
--- NOTE | 2018-01-23 11:07 | ER Document Report ---
HPI - HPI Patient complains to provider of: Injured left wrist Onset: Yesterday Pain Level: 2 Context: 67-year-old female fell yesterday and injured the distal dorsal left wrist area. It is swollen this morning. She had an Moshe wrap on it. Associated Symptoms: None Exacerbated by: Movement Relieved by: Denies Similar symptoms previously: No Recently seen / treated by doctor: No - ROS ROS below otherwise negative: Yes Systems Reviewed and Negative: Yes All other systems reviewed and negative Past Medical History - General Information source: Patient - Social History Smoking Status: Unknown if Ever Smoked Lives with: Family Family History: CAD, Malignancy - Past Medical History Cardiac Medical History: Reports: Hx Heart Murmur - Mitral regurg GI Medical History: Reports: Hx Hiatal Hernia Psychiatric Medical History: Reports: Hx Depression Past Surgical History: Reports: Hx Cholecystectomy, Hx Orthopedic Surgery - left breast lumpectomy (no cancer), Other - Immunizations Hx Diphtheria, Pertussis, Tetanus Vaccination: Yes Vertical Provider Document - CONSTITUTIONAL Agree With Documented VS: Yes Exam Limitations: No Limitations - INFECTION CONTROL TRAVEL OUTSIDE OF THE [place] IN LAST 30 DAYS: No - MUSCULOSKELETAL/EXTREMETIES Musculoskeletal/Extremeties: Tender, Edema - Dorsal distal radius and snuffbox - NEURO Level of Consciousness: Awake Motor/Sensory: No Motor Deficit, No Sensory Deficit - DERM Integumentary: No Rash Course - Re-evaluation Re-evalutation: 01/23/18 12:20 Patient did not want a sugar tong splint she only wanted the length of the volar splint so that is what we put on her. She took a sling home she may or may not use it. She understands were to follow-up for this nondisplaced distal radius fracture. - Vital Signs Vital signs: Temp Pulse Resp BP Pulse Ox 97.6 F 62 16 158/90 H 94 01/23/18 11:02 01/23/18 11:02 01/23/18 11:02 01/23/18 11:02 01/23/18 11:02 Procedures - Immobilization Left Wrist Time completed: 12:20 Pre-Proc Neuro Vasc Exam: Normal Immobilizer type: Volar splint Performed by: PCT Post-Proc Neuro Vasc Exam: Normal Alignment checked and good: Yes Discharge - Discharge Clinical Impression: Nondisplaced distal left radius fracture Condition: Good Disposition: HOME, SELF-CARE Instructions: Fractured Radius ([facility]), Splint Precautions ([facility]), Temporary Sling ([facility]), Temporary Splint ([facility]) Additional Instructions: Call for appointment for wrist cast next week Keep the splint on Use the sling during the day [id number] Motrin for pain You have been given 6 pain pills 1 every 4-6 hours for severe pain it has hydrocodone 5 mg mixed with Tylenol. Return to the emergency room any concerns Prescriptions: Promethazine HCl [Phenergan 25 mg Tablet] 25 mg PO Q4HP PRN #12 tablet PRN Reason: Referrals: CARISSA MOORE MD [ACTIVE STAFF] - 01/27/18 (call for follow up appt next week)
--- NOTE | 2018-01-23 11:26 | RADIOLOGY REPORT (SQ) ---
EXAM DESCRIPTION: WRIST LEFT 3 VIEWS COMPLETED DATE/TIME: 01/23/2018 11:14 am REASON FOR STUDY: fall, get navicular view COMPARISON: None. NUMBER OF VIEWS: Four views TECHNIQUE: AP, lateral, navicular and oblique radiographic images acquired of the left wrist. LIMITATIONS: None. FINDINGS: MINERALIZATION: Normal. BONES: Acute nondisplaced nonangulated distal left radius metaphysis fracture, with dorsal step-off s een on lateral view. SOFT TISSUES: Diffuse left wrist soft tissue swelling OTHER: No other significant finding. IMPRESSION: Acute nondisplaced nonangulated distal left radius metaphysis fracture with dorsal step- off seen on lateral view. Diffuse soft tissue swelling TECHNICAL DOCUMENTATION: JOB ID: [id number] [employer]- All Rights Reserved Reading location - IP/workstation name: [email or web address]
[2018-01-23] MEDS ORDERED: HYDROCODONE/ACETAMINOPHEN 5-325 MG (6 TAB/ER DISP) PO PRN (11:44)
== END 2018-01-23 12:50 | disposition home or self-care (01) ==
LOC: ER 10:58
PROC: 2W3DX1Z Immobilization of Left Lower Arm using Splint (ICD-10-PCS; principal; 2018-01-23)
DX: S52.592A Other fractures of lower end of left radius, initial encounter for closed fracture (principal); W19.XXXA Unspecified fall, initial encounter
CPT/HCPCS: 99283

== ENCOUNTER 2018-01-28 17:00 | Emergency (ER) | payer BC ==
--- NOTE | 2018-01-28 18:31 | ER Document Report ---
ED Medical Screen (RME) - General Chief Complaint: Shortness Of Breath Stated Complaint: SHORTNESS OF BREATH Time Seen by Provider: 01/28/18 18:28 Notes: 67 years old female with a history of pneumonia/sepsis diagnosed recently and admitted to [facility]. Discharge, still having difficulty in breathing and shortness of breath therefore presented to the ED. TRAVEL OUTSIDE OF THE [place] IN LAST 30 DAYS: No - Related Data Allergies/Adverse Reactions: No Known Allergies Allergy (Verified 01/28/18 17:01) Past Medical History - Past Medical History Cardiac Medical History: Reports: Hx Heart Murmur - Mitral regurg Pulmonary Medical History: Reports: Hx Pneumonia Renal/ Medical History: Denies: Hx Peritoneal Dialysis GI Medical History: Reports: Hx Hiatal Hernia Psychiatric Medical History: Reports: Hx Depression Past Surgical History: Reports: Hx Breast Surgery - l breast lumpectomy, Hx Cholecystectomy, Hx Orthopedic Surgery - left breast lumpectomy (no cancer), Other - Immunizations Hx Diphtheria, Pertussis, Tetanus Vaccination: Yes History of Influenza Vaccine for 02/2017 - 07/2017 Season: Unknown Physical Exam - Vital signs Vitals: Temp Pulse Resp BP Pulse Ox 98.0 F 61 20 103/76 95 01/28/18 17:48 01/28/18 17:48 01/28/18 17:48 01/28/18 17:48 01/28/18 17:48 Course - Vital Signs Vital signs: Temp Pulse Resp BP Pulse Ox 98.0 F 61 20 103/76 95 01/28/18 17:48 01/28/18 17:48 01/28/18 17:48 01/28/18 17:48 01/28/18 17:48 Doctor's Discharge - Discharge Referrals: HUGO NAVARRO FNP [Primary Care Provider] - Follow up as needed
[2018-01-28 19:08] LABS: ABSOLUTE EOSINOPHILS # (AUTO) 0.2 10^3/uL (0.0-0.6); ABSOLUTE LYMPHOCYTES (AUTO) 1.3 10^3/uL (0.5-4.7); ABSOLUTE MONOCYTES (AUTO) 0.6 10^3/uL (0.1-1.4); ABSOLUTE NEUT (AUTO) 5.5 10^3/uL (1.7-8.2); BASOPHILS % (AUTO) 0.4 % (0-2); EOSINOPHILS % (AUTO) 2.9 % (0-6); HEMATOCRIT 40.8 % (36.0-47.0); HEMOGLOBIN 13.6 g/dL (12.0-15.5); MEAN CORPUSCULAR HEMOGLOBIN 30.1 pg (27.0-33.4); MEAN CORPUSCULAR HGB CONC 33.3 g/dL (32.0-36.0); MEAN CORPUSCULAR VOLUME 91 fl (80-97); MONOCYTES % (AUTO) 7.4 % (3-13); PLATELET COUNT 298 10^3/uL (150-450); RED BLOOD COUNT 4.51 10^6/uL (3.72-5.28); RED CELL DISTRIBUTION WIDTH 16.7 % (11.5-14.0); SEGMENTED NEUTROPHILS % (AUTO) 72.3 % (42-78); TOTAL CELLS COUNTED % (AUTO) 100 %; WHITE BLOOD COUNT 7.6 10^3/uL (4.0-10.5)
[2018-01-28 19:19] LABS: APPEARANCE,URINE CLOUDY; BILIRUBIN,URINE SMALL (NEGATIVE); GLUCOSE, URINE NEGATIVE (NEGATIVE); KETONES,URINE TRACE mg/dL (NEGATIVE); LEUKOCYTE ESTERASE,URINE MODERATE (NEGATIVE); NITRITE,URINE NEGATIVE (NEGATIVE); PROTEIN,URINE 100 mg/dL (NEGATIVE); URINE SPECIFIC GRAVITY 1.033
[2018-01-28 19:23] LABS: ALANINE AMINOTRANSFERASE 18 U/L (9-52); ALBUMIN 4.3 g/dL (3.5-5.0); ALKALINE PHOSPHATASE 88 U/L (38-126); ANION GAP 11 (5-19); ASPARTATE AMINO TRANSFERASE 29 U/L (14-36); BILIRUBIN,DIRECT 0.6 mg/dL (0.0-0.4); BILIRUBIN,TOTAL 0.9 mg/dL (0.2-1.3); BLOOD UREA NITROGEN 24 mg/dL (7-20); CALCIUM 9.8 mg/dL (8.4-10.2); CARBON DIOXIDE 26 mmol/L (22-30); CHLORIDE 102 mmol/L (98-107); COLOR,URINE YELLOW; CREATINE KINASE 27 U/L (30-135); GLUCOSE 105 mg/dL (75-110); POTASSIUM 4.1 mmol/L (3.6-5.0); SODIUM 138.9 mmol/L (137-145); TOTAL PROTEIN 8.2 g/dL (6.3-8.2)
--- NOTE | 2018-01-28 19:29 | RADIOLOGY REPORT (SQ) ---
EXAM DESCRIPTION: CHEST SINGLE VIEW COMPLETED DATE/TIME: 01/28/2018 7:14 pm REASON FOR STUDY: Cough and shortness of breath COMPARISON: 11/29/2017 EXAM PARAMETERS: NUMBER OF VIEWS: One view. TECHNIQUE: Single frontal radiographic view of the chest acquired. RADIATION DOSE: NA LIMITATIONS: None. FINDINGS: LUNGS AND PLEURA: Chronic interstitial changes. MEDIASTINUM AND HILAR STRUCTURES: Hiatal hernia. HEART AND VASCULAR STRUCTURES: Heart size is normal. BONES: No acute findings. HARDWARE: None in the chest. OTHER: No other significant finding. IMPRESSION: Chronic lung changes. Hiatal hernia. TECHNICAL DOCUMENTATION: JOB ID: [id number] [email or web address]- All Rights Reserved Reading location - IP/workstation name: [email or web address]
[2018-01-28 19:34] LABS: NT PRO BNP 2570 pg/mL (5-900)
[2018-01-28 19:37] LABS: TROPONIN I < 0.012 ng/mL
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
--- NOTE | 2018-01-28 23:32 | EKG REPORT ---
SEVERITY:- ABNORMAL ECG - SINUS RHYTHM PROBABLE LEFT ATRIAL ABNORMALITY ABNORMAL T, CONSIDER ISCHEMIA, ANTERIOR LEADS : Confirmed by: Palma Lopez MD 28-Jan-2018 23:31:47
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
[2018-01-29] MEDS ORDERED: KETOROLAC TROMETHAMINE INJ/PF 30 MG/1 ML SDV IV ONE (01:29)
[2018-01-29 02:18] VITALS: BP 158/80
== END 2018-01-29 02:30 | disposition home or self-care (01) ==
LOC: ER 17:00
DX: R06.02 Shortness of breath (principal); N30.00 Acute cystitis without hematuria; R07.89 Other chest pain; K21.9 Gastro-esophageal reflux disease without esophagitis; F32.9 Major depressive disorder, single episode, unspecified; Z79.899 Other long term (current) drug therapy; Z87.891 Personal history of nicotine dependence; Z87.01 Personal history of pneumonia (recurrent)
CPT/HCPCS: 93005; 94640; 99285; 96374; 36415; 87086; 82553; 82550; 85025; 80053; 81001; 84484; 83880; 71045; 71275; 93010; J1885

== ENCOUNTER → 2018-02-19 | Outpatient (CLI) | payer BC ==
[~2018-02-19] MED LIST: ALBUTEROL SULFATE 0.083% NEB 2.5 MG/3 ML AMPUL NEB ONE
--- NOTE | 2018-02-19 17:11 | Pulmonary Function Test ---
Pulmonary Function Test Date of Procedure:: 02/19/18 INDICATION:: Dyspnea Referring Provider: Dr. Crum Statistics Professor: Joyce Jones [employer]ES ACCOUNT MANAGER, [employer]SIAN STUDIES PROFESSOR - Report Spirometry: FVC 1.07 L 42% postbronchodilator 1.13 L 44% FEV1 0.84 L 41% postbronchodilator 0.78 L 38% FEV1/FVC % 78 postbronchodilator 69 predicted 83 FEF 25-75% 0.37 L 17% postbronchodilator 0.19 L 9% Total lung capacity 2.64 L 62% Vital capacity 1.07 L 42% Inspiratory capacity 0.52 L FRC N2 2.12 L 96% ERV 0.19 L RV 1.57 L 95% RV/TLC % 59 predicted 39 Lung Volume: Total lung capacity 2.64 L 62% Vital capacity 1.07 L 42% Inspiratory capacity 0.52 L FRC N2 2.12 L 96% ERV 0.19 L RV 1.57 L 95% RV/TLC % 59 predicted 39 Impression: Mild restrictive ventilatory defect. (Restrictive defect may mask the degree of obstruction.) Moderate obstructive ventilatory defect. Insignificant response to bronchodilator therapy. This in and of itself does not preclude a clinical trial of bronchodilator therapy. Patient unable to perform diffusion capacity.
== END ==
LOC: RT 13:39
PROVIDERS: ATTEND Internal Medicine Pulmonary Disease
DX: R06.09 Other forms of dyspnea (principal)
CPT/HCPCS: 94060; 94727

== ENCOUNTER 2018-04-14 11:00 | Inpatient (IN) | payer BC, MEDICARE ==
[2018-04-14 11:46] LABS: ABSOLUTE EOSINOPHILS # (AUTO) 0.4 10^3/uL (0.0-0.6); ABSOLUTE LYMPHOCYTES (AUTO) 1.7 10^3/uL (0.5-4.7); ABSOLUTE MONOCYTES (AUTO) 0.4 10^3/uL (0.1-1.4); ABSOLUTE NEUT (AUTO) 8.6 10^3/uL (1.7-8.2); BASOPHILS % (AUTO) 0.3 % (0-2); EOSINOPHILS % (AUTO) 3.5 % (0-6); HEMATOCRIT 34.2 % (36.0-47.0); HEMOGLOBIN 10.8 g/dL (12.0-15.5); LYMPHOCYTES % (AUTO) 15.2 % (13-45); MEAN CORPUSCULAR HEMOGLOBIN 29.3 pg (27.0-33.4); MEAN CORPUSCULAR HGB CONC 31.7 g/dL (32.0-36.0); MEAN CORPUSCULAR VOLUME 92 fl (80-97); MONOCYTES % (AUTO) 3.4 % (3-13); PLATELET COUNT 400 10^3/uL (150-450); RED BLOOD COUNT 3.71 10^6/uL (3.72-5.28); RED CELL DISTRIBUTION WIDTH 17.3 % (11.5-14.0); SEGMENTED NEUTROPHILS % (AUTO) 77.6 % (42-78); TOTAL CELLS COUNTED % (AUTO) 100 %; WHITE BLOOD COUNT 11.1 10^3/uL (4.0-10.5)
[2018-04-14] MEDS ORDERED: METHYLPREDNISOLONE INJ 125 MG/2 ML SDV IV ONE (11:47)
--- NOTE | 2018-04-14 11:52 | ER Document Report ---
ED General - General Chief Complaint: Breathing Difficulty Stated Complaint: SHORTNESS OF BREATH Time Seen by Provider: 04/14/18 11:35 TRAVEL OUTSIDE OF THE [place] IN LAST 30 DAYS: No - HPI Notes: Patient is a 68-year-old female that presents to the emergency department for chief complaint of Shortness of breath. Patient states that she has been having ongoing issues with shortness of breath over the last 6 months to a year. She is in the process of getting a formal diagnosis by pulmonology. She has been told that she may have pulmonary fibrosis and restrictive lung disease. She is denying any history of COPD or smoking. She states she has an appointment this week with a radiation control health physicist to discuss getting a lung biopsy for further diagnosis. Patient has been on prednisone 60 mg daily for the last few weeks. Her last dose was the day before yesterday. Last night she states she started having increased shortness of breath. She reports mild cough with no increase in sputum. She denies any fevers or chills. She denies any chest pain. She is wearing 4 L of oxygen at home which she has not changed. She does not use breathing treatments and states when she has had them in the past they do not improve her symptoms. Past Medical History: Lung disease and a hiatal hernia Past Surgical History: Negative Social History: Denies drugs alcohol and tobacco Family History: Reviewed and noncontributory for presenting illness Allergies: Reviewed, see documented allergy list. REVIEW OF SYSTEMS: CONSTITUTIONAL : No fever No chills No diaphoresis No recent illness EENT: No vision changes No congestion No sore throat CARDIOVASCULAR: No chest pain No palpitations RESPIRATORY: shortness of breath cough No difficulty breathing GASTROINTESTINAL: No abdominal pain No nausea No vomiting No diarrhea GENITOURINARY: No dysuria No hematuria No difficulty urinating MUSCULOSKELETAL: No back pain No leg pain No arm pain SKIN: No rashes No lesions LYMPHATIC: No swollen, enlarged glands. NEUROLOGICAL: No lightheadedness No headache No weakness No paresthesias PSYCHIATRIC: No anxiety No depression PHYSICAL EXAMINATION: Vital signs reviewed, nursing noted reviewed. GENERAL: Well-appearing, well-nourished and in no acute distress. HEAD: Atraumatic, normocephalic. EYES: Eyes appear normal, extraocular movements intact, sclera anicteric, conjunctiva are normal. ENT: nares patent, oropharynx clear without exudates. Moist mucous membranes. NECK: Normal range of motion, supple without lymphadenopathy LUNGS: Diminished lung sounds bilaterally. Tachypneic. Conversationally dyspneic. Mild accessory muscle use. HEART: Regular rate and rhythm without murmurs ABDOMEN: Soft, nontender, normoactive bowel sounds. No rebound, guarding, or rigidity. No masses appreciated. EXTREMITIES: Nontender, good range of motion, no pitting or edema. NEUROLOGICAL: No focal neurological deficits. Moves all extremities spontaneously Motor and sensory grossly intact on exam. PSYCH: Normal mood, normal affect. SKIN: Warm, Dry, normal turgor, no rashes or lesions noted on exposed skin - Related Data Allergies/Adverse Reactions: No Known Allergies Allergy (Verified 01/28/18 17:01) Past Medical History - Social History Smoking Status: Former Smoker Family History: CAD, Malignancy Patient has suicidal ideation: No Patient has homicidal ideation: No - Past Medical History Cardiac Medical History: Reports: Hx Heart Murmur - Mitral regurg Pulmonary Medical History: Reports: Hx Pneumonia Renal/ Medical History: Denies: Hx Peritoneal Dialysis GI Medical History: Reports: Hx Hiatal Hernia Psychiatric Medical History: Reports: Hx Depression Past Surgical History: Reports: Hx Breast Surgery - l breast lumpectomy, Hx Cholecystectomy, Hx Orthopedic Surgery - left breast lumpectomy (no cancer), Other - Immunizations Hx Diphtheria, Pertussis, Tetanus Vaccination: Yes Physical Exam - Vital signs Vitals: Pulse Ox 96 04/14/18 11:18 Course - Re-evaluation Re-evalutation: 04/14/18 11:50 Vitals reviewed. Nursing notes reviewed. Patient offered albuterol and DuoNeb but states that never improves her symptoms. She has been on high-dose steroids but ran out of her medication and did not get a dose yesterday. She will be given Solu-Medrol in the emergency room. Patient is currently requiring nonrebreather to keep her oxygen saturation in the 90s. 04/14/18 12:35 Patient reevaluated and is having a more difficult time breathing. Her mental status is still the same and she is alert and talking. She is currently protecting her airway. Patient will be started on CPAP. Her chest x-ray shows left-sided pleural effusion, fibrosis and concern for congestive heart failure. Patient did have a decrease in her blood pressure. Despite questionable onset of congestive heart failure she is requiring fluids for resuscitation of her hypotension. I did discuss the potential that she will need intubation which she is in agreement with. Stat bedside echo obtained to evaluate for pericardial effusion. Patient does have an elevated troponin at 0.10 which she received aspirin for in the ED. She is not having any active chest pain. She has no pneumonia on x-ray and is not septic. Antibiotics not currently indicated. case was discussed with Dr. Jolly who will admit her to the ICU for further management. Chest X-Ray 04/14/18 11:06 IMPRESSION: Interval development of congestive heart failure with left pleural effusion. Superimposed on interstitial lung disease, pulmonary fibrosis. Large retrocardiac hiatal hernia. Laboratory 04/14/18 04/14/18 04/14/18 11:10 11:10 11:10 WBC 11.1 H RBC 3.71 L Hgb 10.8 L Hct 34.2 L MCV 92 MCH 29.3 MCHC 31.7 L RDW 17.3 H Plt Count 400 Seg Neutrophils % 77.6 Lymphocytes % 15.2 Monocytes % 3.4 Eosinophils % 3.5 Basophils % 0.3 Absolute Neutrophils 8.6 H Absolute Lymphocytes 1.7 Absolute Monocytes 0.4 Absolute Eosinophils 0.4 Absolute Basophils 0.0 Sodium 141.9 Potassium 4.7 Chloride 101 Carbon Dioxide 32 H Anion Gap 9 BUN 37 H Creatinine 0.91 Est GFR ( Amer) > 60 Est GFR (Non-Af Amer) > 60 Glucose 151 H Calcium 9.5 Total Bilirubin 0.8 Direct Bilirubin 0.4 Neonat Total Bilirubin Not Reportable Neonat Direct Bilirubin Not Reportable Neonat Indirect Bili Not Reportable AST 64 H ALT 10 Alkaline Phosphatase 74 Troponin I 0.103 Total Protein 6.6 Albumin 3.5 04/14/18 13:09 Patient's care was discussed with Dr. Herrera who will follow up on cardiac echo and see the patient in consultation. - Vital Signs Vital signs: Temp Pulse Resp BP Pulse Ox 97.5 F 86 33 H 100/87 H 99 04/14/18 11:25 04/14/18 11:25 04/14/18 13:42 04/14/18 13:42 04/14/18 13:42 - Laboratory Result Diagrams: 04/14/18 11:10 04/14/18 11:10 Laboratory results interpreted by me: 1204/14/18 04/14/18 11:10 11:10 11:10 WBC 11.1 H RBC 3.71 L Hgb 10.8 L Hct 34.2 L MCHC 31.7 L RDW 17.3 H Absolute Neutrophils 8.6 H Carbonic Acid ABG pCO2 ABG pO2 ABG HCO3 ABG Total CO2 ABG O2 Saturation Carbon Dioxide 32 H BUN 37 H Glucose 151 H AST 64 H NT-Pro-B Natriuret Pep 54735 H 04/14/18 12:31 WBC RBC Hgb Hct MCHC RDW Absolute Neutrophils Carbonic Acid 1.43 H ABG pCO2 47.6 H ABG pO2 202.5 H ABG HCO3 27.5 H ABG Total CO2 29.0 H ABG O2 Saturation 99.3 H Carbon Dioxide BUN Glucose AST NT-Pro-B Natriuret Pep - EKG Interpretation by Me Additional EKG results interpreted by me: 04/14/18 11:51 Interpreted by myself 1111: Normal sinus rhythm, rate 84, normal axis, no ectopy, borderline prolonged QT, QTc 488, deeply inverted T waves with similar appearance to Critical Care Note - Critical Care Note Total time excluding time spent on procedures (mins): 45 Comments: Respiratory failure, hypotension, requiring respiratory and cardiovascular resuscitation with potential for decompensation in both. Discharge - Discharge Clinical Impression: Pleural effusion, Elevated troponin Respiratory failure Qualifiers: Chronicity: acute Respiratory failure complication: hypercapnia Qualified Code( s): J96.02 - Acute respiratory failure with hypercapnia CHF (congestive heart failure) Qualifiers: Heart failure type: unspecified Heart failure chronicity: unspecified Qualified Code(s): I50.9 - Heart failure, unspecified Condition: Stable Disposition: ADMITTED INPATIENT Admitting Provider: Hospitalist Unit Admitted: ICU
--- NOTE | 2018-04-14 12:06 | RADIOLOGY REPORT (SQ) ---
EXAM DESCRIPTION: CHEST SINGLE VIEW COMPLETED DATE/TIME: 04/14/2018 11:36 am REASON FOR STUDY: sob COMPARISON: 01/28/2018 EXAM PARAMETERS: NUMBER OF VIEWS: One view. TECHNIQUE: Single frontal radiographic view of the chest acquired. RADIATION DOSE: NA LIMITATIONS: None. FINDINGS: LUNGS AND PLEURA: Interstitial lung disease predominantly basilar. The does appear to be a new left pleural effusion. MEDIASTINUM AND HILAR STRUCTURES: Large retrocardiac hiatal hernia. HEART AND VASCULAR STRUCTURES: Heart is enlarged. Vascular congestion. BONES: No acute findings. HARDWARE: None in the chest. OTHER: No other significant finding. IMPRESSION: Interval development of congestive heart failure with left pleural effusion. Superimposed on interstitial lung disease, pulmonary fibrosis. Large retrocardiac hiatal hernia. TECHNICAL DOCUMENTATION: JOB ID: [id number] [email or web address] Reserved Reading location - IP/workstation name: [email or web address]
[2018-04-14 12:13] LABS: ALANINE AMINOTRANSFERASE 10 U/L (9-52); ALBUMIN 3.5 g/dL (3.5-5.0); ALKALINE PHOSPHATASE 74 U/L (38-126); ANION GAP 9 (5-19); ASPARTATE AMINO TRANSFERASE 64 U/L (14-36); BILIRUBIN,DIRECT 0.4 mg/dL (0.0-0.4); BILIRUBIN,TOTAL 0.8 mg/dL (0.2-1.3); BLOOD UREA NITROGEN 37 mg/dL (7-20); CALCIUM 9.5 mg/dL (8.4-10.2); CARBON DIOXIDE 32 mmol/L (22-30); CHLORIDE 101 mmol/L (98-107); GLUCOSE 151 mg/dL (75-110); POTASSIUM 4.7 mmol/L (3.6-5.0); SODIUM 141.9 mmol/L (137-145); TOTAL PROTEIN 6.6 g/dL (6.3-8.2)
[2018-04-14] MEDS ORDERED: ASPIRIN 81 MG TABLET, CHEWABLE PO ONE (12:30)
[2018-04-14 12:59] LABS: ARTERIAL BLOOD BASE EXCESS 1.9 mmol/L; ARTERIAL BLOOD H2CO3 1.43 mmol/L (1.05-1.35); ARTERIAL BLOOD HCO3 27.5 mmol/L (20-24); ARTERIAL BLOOD O2 SATURATION 99.3 % (94-98); ARTERIAL BLOOD PCO2 47.6 mmHg (35-45); ARTERIAL BLOOD PH 7.38 (7.35-7.45); ARTERIAL BLOOD PO2 202.5 mmHg (80-100)
[2018-04-14] MEDS ORDERED: IPRATROPIUM/ALBUTEROL 0.5-2.5 MG/3 ML AMPUL NEB PRN (13:15)
[2018-04-14] MEDS ORDERED: GUAIFENESIN SYRP 200 MG/10 ML UDC PO PRN (13:15)
[2018-04-14 13:21] LABS: ARTERIAL BLOOD FIO2 9L
--- NOTE | 2018-04-14 15:19 | EKG REPORT ---
SEVERITY:- ABNORMAL ECG - SINUS RHYTHM PROBABLE LEFT ATRIAL ABNORMALITY PROBABLE LEFT VENTRICULAR HYPERTROPHY VS ISCHEMIC T INVERSION, REC REPAET EKG BORDERLINE PROLONGED QT INTERVAL : Confirmed by: Pasha Xiong 14-Apr-2018 15:18:43
[2018-04-14] MEDS ORDERED: NORMAL SALINE 500 ML IV ONE ×2 (16:00→17:00)
--- NOTE | 2018-04-14 16:17 | XCELERA REPORT ---
[address] [address] Transthoracic Echocardiogram Report Name: JORGE LUIS GALEANO Age: 68 yrs Gender: Female : 1950 Patient Status: Inpatient Patient Location: ICU^601^A Study Date: 04/14/2018 02:32 PM Procedure: A two-dimensional transthoracic echocardiogram with color flow and Doppler was performed. The study was technically difficult with many images being suboptimal in quality. Reason For Study: CHF History: CHF. Ordering Physician: MIKE JAIME Performed By: Nat Ivory Interpretation Summary The left ventricle is normal in size. There is mild to moderate concentric left ventricular hypertrophy. LV EF is 60% Doppler measurements suggest impaired left ventricular relaxation, which is associated with grade I/IV or mild diastolic dysfunction The left ventricular wall motion is normal. RV and RA not wellvisualised.Most likely there is moderate enlargement of RA and RV , and moderately reduced RV systoic function. The left atrial size is normal. There is no evidence of mitral valve prolapse. There is no vegetation seen on the mitral valve. There is no mitral valve stenosis. There is mild mitral stenosis The aortic valve is trileaflet. The aortic valve opens well. There is no aortic valve stenosis There is no LVOT obstruction. No aortic regurgitation is present. There is no tricuspid stenosis. There is moderate pulmonary hypertension by echo There is a mild to moderate amount of tricuspid regurgitation RVSP is 52 to 57 mm of Hg with RA mean of 5 to 10. There is a mild amount of pulmonic regurgitation There is no pulmonic valvular stenosis. There is no pericardial effusion. MMode/2D Measurements & Calculations RVDd: 3.8 cm LVIDd: 2.8 cm FS: 30.2 % Ao root diam: 3.1 cm IVSd: 1.2 cm LVIDs: 2.0 cm EDV(Teich): 29.6 ml Ao root area: 7.5 cm2 LVPWd: 0.99 cm ESV(Teich): 12.0 ml EF(Teich): 59.4 % Doppler Measurements & Calculations MV E max jabari: MV dec slope: Ao V2 max: LV V1 max P.8 cm/sec 472.3 cm/sec 10.5 mmHg MV A max jabari: 216.8 cm/sec2 Ao max PG: LV V1 max: 112.9 cm/sec MV dec time: 89.2 mmHg 162.2 cm/sec MV E/A: 0.29 0.15 sec LV dP/dt: 2213 mmHg/s PA V2 max: PI max jabari: TR max jabari: 63.1 cm/sec 262.9 cm/sec 339.5 cm/sec PA max P.6 mmHg PI max P.6 mmHg TR max PG: PI dec slope: 46.1 mmHg 192.4 cm/sec2 Left Ventricle The left ventricle is normal in size. There is mild to moderate concentric left ventricular hypertrophy. LV EF is 60%. Left ventricular systolic function is normal. Doppler measurements suggest impaired left ventricular relaxation, which is associated with grade I/IV or mild diastolic dysfunction. The left ventricular wall motion is normal. There is no thrombus. Right Ventricle RV and RA not wellvisualised.Most likely there is moderate enlargement of RA and RV , and moderately reduced RV systoic function. Atria The left atrial size is normal. Mitral Valve There is no evidence of mitral valve prolapse. There is no vegetation seen on the mitral valve. There is no mitral valve stenosis. There is mild mitral stenosis. Aortic Valve The aortic valve is trileaflet. The aortic valve opens well. There is no aortic valvular vegetation. There is no aortic valve stenosis. There is no LVOT obstruction. No aortic regurgitation is present. Tricuspid Valve There is no tricuspid stenosis. There is moderate pulmonary hypertension by echo. There is a mild to moderate amount of tricuspid regurgitation. RVSP is 52 to 57 mm of Hg with RA mean of 5 to 10. Pulmonic Valve There is no pulmonic valvular stenosis. There is a mild amount of pulmonic regurgitation. Great Vessels The aortic root is normal size. Effusions There is no pericardial effusion. : MIKE JAIME > Palma Lopez
[2018-04-14] MEDS: HEPARIN SOD (PORCINE) 5,000 UNIT/ML 1 ML SYRINGE SUBCUT SCH ×2 (16:32→21:37)
[2018-04-14] MEDS: LANSOPRAZOLE 30 MG TAB.RAP.DR PO SCH (16:32)
[2018-04-14] MEDS: METHYLPREDNISOLONE INJ 125 MG/2 ML SDV IV SCH (18:37)
[2018-04-14] MEDS: NORMAL SALINE 1000 ML 1,000 ML IV PRN (18:38)
--- NOTE | 2018-04-14 20:20 | PDOC CONSULTATION ---
Consultation-Blank Consultation: CARDIOLOGY CONSULTATION by Dr. Palma Lopez on 04/14/2018. Patient seen at 5:30 PM. REASON FOR CONSULTATION: Shortness of breath with CHF. HISTORY OF PRESENT ILLNESS: Patient is a 68-year-old female, with a diagnosis of pulmonary fibrosis [has not had a lung biopsy] diagnosed about a year has been having episodic wheezing with respiratory distress and respiratory failure. She states that all of a sudden she this morning she started having wheezing and cough which was nonproductive. There is no chest pain or discomfort. There is no dizziness or palpitations or syncope or near syncope. Patient denies any fever chills or rigors. There is no hemoptysis. There is no pleuritic chest pain. The patient has chronic orthopnea, but no PND or leg edema. She denies any palpitations. She has found to be in respiratory distress in the emergency room and was treated with BiPAP. Since her blood pressure was slightly on the lower side, she did receive fluid bolus in the emergency room. She has been admitted to the ICU on BiPAP. PAST MEDICAL HISTORY: She denies a history of hypertension. She also has been diagnosed with pulmonary fibrosis, although she has not had a biopsy done. She has had acute flareups of acute pulmonary distress/infection due to underlying pulmonary fibrosis. She denies any history of asthma. In spite of this she has intermittent wheezing. She denies sleep apnea. She has no history of diabetes mellitus or thyroid disease. There is no history of coronary disease. There is no history of NH or anginal symptoms. There is no definite history of congestive heart failure. There is no palpitations, there is no pedal edema or near syncope dizziness or syncope. She denies any palpitations. She has chronic orthopnea. But no PND. She states that in May 2017 her echo was diagnosed to have IHSS. But later in [facility] better when she was hospitalized hospitalized she had an echocardiogram which stated that the LV ejection fraction was 55% with mild LVH. And there was LV diastolic dysfunction which is mild. In that echo no evidence of IHSS was found. She has a history of depression. There is no history of thyroid disease. There is no history of diabetes mellitus. There is no history of TIA CVA. There is no history of seizures. There is no history of chronic kidney disease. She also has a history of significant GERD, but states it is controlled with medication. She also has a hiatal hernia. PAST SURGICAL HISTORY: She had a right forearm surgery. She has had a lumpectomy from the left breast which proved to be benign. She also has had cholecystectomy. FAMILY HISTORY: Is positive for hypertension. Is negative for coronary artery disease. SOCIAL HISTORY: The patient is non-smoker. There is no history of EtOH abuse. ALLERGIES: The patient has no known allergies. DISPOSITION: The patient is a full code. Her is her surrogate healthcare decision maker. REVIEW OF SYSTEMS: CONSTITUTIONAL: Denies any fever chills or rigors. She does complain of generalized fatigue and weakness. EYES: No history of amblyopia diplopia. No history of amaurosis fugax. EARS: No history of tinnitus. No history of vertigo. No history of hearing loss. NOSE: No history of nosebleeds. No history of hayfever. MOUTH: No history of altered taste sensation. No bleeding from the gums or mouth. THROAT: No history of odynophagia or dysphagia. NO RECURRENT SORE THROATS. Skin: No pruritus. No yellowish discoloration of the skin. No petechia or ecchymosis. No history of skin cancer. No history of psoriasis. NECK: Denies any symptoms of C-spine arthritis. No lymphadenopathy. No swelling in the neck. LUNGS: Diagnosis of pulmonary fibrosis, the patient states she has had a few episodes of infection secondary to bronchitis. She has no history of asthma, but has intermittent wheezing whenever pulmonary fibrosis is associated with infection. She has no history of sleep apnea. No history of pulmonary embolism. She has chronic orthopnea HEART: She denies history of coronary artery disease. Denies hypertension. She claims that she was told in May 2017 that she had IHSS. Subsequent echo did not show evidence of this. The patient denies any palpitations or syncope. There is no history of coronary artery disease. No history of NH or anginal symptoms. There is no history of leg edema. ENDOCRINE : No history of diabetes mellitus or thyroid disease. No history of heat or cold intolerance. No history of polydipsia polydipsia polyuria. GI: History of GERD. Patient has a large retrocardiac hiatal hernia. No history of fatty food intolerance. No history of abdominal pain no history of cirrhosis. No history of jaundice no history of GI bleed. MUSCULOSKELETAL: Denies history of arthritis or collagen vascular disease. RENAL: Denies history of chronic kidney disease. No symptoms of a UTI although in the recent past she has been treated for UTI. No history of hematuria pyuria or dysuria. EDUCATION DIAGNOSTICIAN: No history of TIA or CVA. No history of sleep apnea. No history of gait imbalance. No history of headaches migraines or seizures. PSYCHIATRIC: No history of anxiety. He has a history of depression and is on medication for that, which is controlled her depression. No suicidal ideation. No homicidal ideation. On examination the patient is in distress due to shortness of breath and is on the BiPAP. She is mild to moderately obese. She is well-groomed. Selected Entries 04/14/18 04/14/18 04/14/18 17:19 17:25 17:55 Core 98.8 F 99.0 F Temperature Pulse Rate 92 Heart Rate ( 93 Monitors) Respiratory 30 H 20 Rate Blood Pressure 101/90 H Blood Pressure 109/98 H [Left Upper Arm ] Blood Pressure 93 Mean O2 Sat by Pulse 98 Oximetry Oxygen Delivery Bi-pap Method ( includes room air) Percent of 60 Oxygen Premature 0 Ventricular Counted Beats HEAD: Is atraumatic normocephalic. EYES: Pupils are equal round regular reactive to light accommodation. Extraocular movements are normal. There is no palatal pallor. There is no scleral icterus. EARS: Tympanic memories are intact. External auditory canals are clear. NOSE: There is no deviated nasal septum. There is no information using mucous membrane. MOUTH: Mucous membranes of the mouth are moist. Tongue is moist. There is no ulcers. There is no bleeding from the gums. THROAT: There is no redness of the oropharynx. There is no exudates in the throat. SKIN: There is no petechia or ecchymosis. There is no skin lesions or skin rashes. NECK: Is supple. There is no JVD. Carotids are equal there is no bruit. There is no lymphadenopathy. There is no goiter. There is some degree of accessory muscles of respiration in use. Patient is on BiPAP. Trachea central. LUNGS: Shows bibasilar E rales of pulmonary fibrosis. In spite of these there is good air entry bilaterally. No fine rales of CHF. There is no chest wall tenderness. HEART: S1-S2 is heard there is no S4 gallop. There is no S3 gallop systolic murmur in the left sternal border and the apex. There is no rub. ABDOMEN: Is soft mildly obese. There is no hepatosplenomegaly. Bowel sounds are well heard. There is no rebound guarding or rigidity. EXTREMITIES: Femorals are well felt there is no femoral bruits. Leg pulses are well felt. There is no pedal edema. There is no DVT or cellulitis. There is no calf tenderness. There is no cyanosis or clubbing. EDUCATION DIAGNOSTICIAN: The patient is conscious awake alert oriented x3 with no focal deficits. PSYCHIATRIC: The patient has not appear to be anxious. She appears to be slightly depressed. In spite of this patient judgment and insight are intact. 04/14/18 04/14/18 04/14/18 11:10 11:10 11:10 WBC 11.1 H RBC 3.71 L Hgb 10.8 L Hct 34.2 L MCV 92 MCH 29.3 Plt Count 400 ABG pH ABG pCO2 ABG pO2 ABG HCO3 ABG Total CO2 ABG O2 Saturation ABG Base Excess FiO2 Sodium 141.9 Potassium 4.7 Chloride 101 Carbon Dioxide 32 H BUN 37 H Creatinine 0.91 Est GFR (Non-Af Amer) > 60 Glucose 151 H Calcium 9.5 Total Bilirubin 0.8 Direct Bilirubin 0.4 Neonat Total Bilirubin Not Reportable Neonat Direct Bilirubin Not Reportable Neonat Indirect Bili Not Reportable AST 64 H ALT 10 Alkaline Phosphatase 74 Troponin I 0.103 NT-Pro-B Natriuret Pep Total Protein 6.6 Albumin 3.5 04/14/18 04/14/18 11:10 12:31 WBC RBC Hgb Hct MCV MCH Plt Count ABG pH 7.38 ABG pCO2 47.6 H ABG pO2 202.5 H ABG HCO3 27.5 H ABG Total CO2 29.0 H ABG O2 Saturation 99.3 H ABG Base Excess 1.9 FiO2 9L Sodium Potassium Chloride Carbon Dioxide BUN Creatinine Est GFR (Non-Af Amer) Glucose Calcium Total Bilirubin Direct Bilirubin Neonat Total Bilirubin Neonat Direct Bilirubin Neonat Indirect Bili AST ALT Alkaline Phosphatase Troponin I NT-Pro-B Natriuret Pep 49684 H Total Protein Albumin 04/14/18 11:47 Methylprednisolone Sod Succ/Pf [Solu-Medrol Inj/Pf 125 mg/2 ml Sdv] 125 mg IV NOW ONE 04/14/18 12:30 Aspirin [Aspirin 81 mg Chewable Tablet] 324 mg PO NOW ONE 04/14/18 13:12 Acetaminophen [Tylenol 325 mg Tablet] 650 mg PO Q4HP PRN 04/14/18 13:15 Guaifenesin [Robitussin Syrup 200 mg/10 ml Ud Cup] 200 mg PO Q6HP PRN Ipratropium/Albuterol Sulfate [Duoneb 3 ml Ampul] 3 ml NEB RTQ6HP PRN 04/14/18 14:00 Heparin Sodium,Porcine [Heparin Inj 5,000 Units/ml 1 ml Syringe] 5,000 unit SUBCUT Q8 Normal Saline [Saline Flush 2.5 ml Monoject Prefil Syrin] 2.5 ml IV Q8 04/14/18 15:25 Flu Vacc [id number](6Mos Up)/Pf [Fluarix Adlt Quad Vac 0.5 ml Syr] 0.5 ml IM .DISCHARGE PRN 04/14/18 16:00 Normal Saline [NaCl 0.9% 500 ml IV Soln] 500 ml IV BOLUS 04/14/18 17:00 Lansoprazole [Prevacid 30 mg Odt Tablet] 30 mg PO BID@0600,1700 Normal Saline [NaCl 0.9% 500 ml IV Soln] 500 ml IV BOLUS 04/14/18 17:26 Normal Saline 1000 ml [NaCl 0.9% 1000 ml IV Soln] 1,000 ml IV CONTINUOUS 04/14/18 18:00 Methylprednisolone Sod Succ/Pf [Solu-Medrol Inj/Pf 125 mg/2 ml Sdv] 125 mg IV Q8A 04/14/18 18:13 Zolpidem Tartrate [Ambien 5 mg Tablet] 10 mg PO HSP PRN 04/15/18 10:00 Tiotropium [place] [Spiriva Handihaler 5 Cap/Kit (18 Mcg/Cap)] 1 cap IH DAILY EKG: SINUS RHYTHM. PROBABLE LEFT ATRIAL ABNORMALITY PROBABLE LEFT VENTRICULAR HYPERTROPHY VS ISCHEMIC T INVERSION, REC REPAET EKG. BORDERLINE PROLONGED QT INTERVAL CHEST X-ray: Cardiomegaly with chronic interstitial changes. Left pleural effusion. Large retrocardiac hiatal hernia. ECHO: There is a poor quality study. The left ventricle is normal size. Cannot exclude asymmetric septal hypertrophy and possibly LVOT gradient, and some being present, raising the possibility of LVOT obstruction due to IHSS. The left ventricular systolic function is normal. There is moderate pulmonary hypertension. The right side seems to be enlarged. IMPRESSION/RECOMMENDATION: 1. Acute respiratory failure secondary to infective bronchitis in a patient with pulmonary fibrosis. Recommend continue BiPAP. Continue oxygen. Continue respiratory treatments. Strongly recommend antibiotics. 2. Acute infective bronchitis: Strongly recommend starting antibiotics. Continue on the above treatment mentioned. 3. Interstitial fibrosis: The patient on the cart of antibiotics may benefit from high-dose steroids. 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 4. Depression: Continue her antidepressants. 5. Possible IHSS: Would, in view of this, avoid diuretics, keep the patient well-hydrated, and we will not use nitrates. Also would avoid digoxin any positive inotropic agent. If the blood pressure does come up would recommend verapamil at 120 mg p.o. every 12 hours. This can be titrated as needed with close observation on the blood pressure and heart rate response to the medication. As mentioned earlier we will recheck the patient's LVOT velocities tomorrow. Echo findings discussed with the patient. 6. History of GERD and a large hiatal hernia. Her medications have been reviewed. Discussed management plan with attending physician. We will recheck the patient's LVOT velocity tomorrow. Note 60 minutes spent on this patient more than 50% of time spent in direct patient care. Medical decision making is of high complexity.
--- NOTE | 2018-04-14 20:46 | PDOC H&P ---
History of Present Illness Admission Date/PCP: 04/14/18 13:34 JUAN ANTONIO MADERA Patient complains of: Worsening shortness of breath History of Present Illness: JORGE LUIS GALEANO is a 68 year old female past medical history of possible restrictive lung disease due to pulmonary fibrosis and cardiomyopathy both pending final diagnosis. Patient presented to ED complaining of worsening shortness of breath associated with mild nonproductive cough. As per patient she was sent to a chief enterprise architect for possible cardiomyopathy however she has not had a definitive diagnosis, then she was sent to a pulmonology for possible pulmonary fibrosis and she has a pending lung biopsy. She has been taking prednisone 60 mg for the last 30 days and she ran out about 2 days ago. She denies any fever, chills, nausea, vomiting, diarrhea, constipation or any urinary symptoms. Last night she noticed worsening shortness of breath and came to ED for further evaluation. In ED she was seen to be in severe respiratory distress and was placed on BiPAP. Also found to be hypotensive. Past Medical History Cardiac Medical History: Reports: Heart Murmur - Mitral regurg Pulmonary Medical History: Reports: Pneumonia Neurological Medical History: Endocrine Medical History: GI Medical History: Reports: Hiatal Hernia Musculoskeltal Medical History: Psychiatric Medical History: Reports: Depression Hematology: Denies: Anemia, Bleeding Tendencies Past Surgical History Past Surgical History: Reports: Cholecystectomy, Orthopedic Surgery - left breast lumpectomy (no cancer), Other Social History Smoking Status: Former Smoker Frequency of Alcohol Use: Occasional Hx Recreational Drug Use: No Drugs: None Hx Prescription Drug Abuse: No Family History Family History: CAD, Malignancy Parental Family History Reviewed: Yes Children Family History Reviewed: Yes Sibling(s) Family History Reviewed.: Yes Medication/Allergy Home Medications: Propranolol HCl 40 mg PO Q8 12/08/13 Alprazolam [Xanax] 1 mg PO BIDP PRN 11/29/17 Duloxetine HCl [Cymbalta] 30 mg PO Q12 11/29/17 Gabapentin [Neurontin 300 mg Capsule] 300 mg PO Q12 11/29/17 Zolpidem Tartrate [Ambien 5 mg Tablet] 10 mg PO HSP PRN 11/29/17 Esomeprazole Magnesium [Nexium 24Hr] 20 mg PO DAILY 04/14/18 Ferrous Sulfate [Feosol] 325 mg PO DAILY 04/14/18 Ipratropium [place] [Atrovent 0.06% Nasal [place]] 2 spray NASL TID 04/14/18 Melatonin [Melatonin 3 mg Tablet] 3 mg PO QHS 04/14/18 Naproxen Sodium [Naprelan] 500 mg PO BID 04/14/18 Promethazine HCl [Phenergan 25 mg Tablet] 25 mg PO Q4HP PRN 04/14/18 Allergies/Adverse Reactions: No Known Allergies Allergy (Verified 01/28/18 17:01) Review of Systems Review of Systems: As per HPI Physical Exam Vital Signs: Temp Pulse Resp BP Pulse Ox 99.3 F 92 29 H 101/90 H 100 04/14/18 19:27 04/14/18 17:19 04/14/18 19:34 04/14/18 17:55 04/14/18 19:34 Intake & Output 04/13/18 04/14/18 04/15/18 06:59 06:59 06:59 Intake Total 1021 Output Total 140 Balance 881 Weight 81.9 kg General appearance: PRESENT: severe distress Neck exam: ABSENT: carotid bruit, JVD, lymphadenopathy, thyromegaly Respiratory exam: PRESENT: accessory muscle use, clear to auscultation trinh. ABSENT: rales, rhonchi, wheezes Cardiovascular exam: PRESENT: RRR, tachycardia. ABSENT: diastolic murmur, rubs , systolic murmur GI/Abdominal exam: PRESENT: normal bowel sounds, soft. ABSENT: distended, guarding, mass, organolmegaly, rebound, tenderness Neurological exam: PRESENT: alert, awake, oriented to person, oriented to place , oriented to time, oriented to situation, CN II-XII grossly intact. ABSENT: motor sensory deficit Results Impressions: Chest X-Ray 04/14/18 11:06 IMPRESSION: Interval development of congestive heart failure with left pleural effusion. Superimposed on interstitial lung disease, pulmonary fibrosis. Large retrocardiac hiatal hernia. Assessment & Plan - Diagnosis (1) Acute respiratory failure Qualifiers: Respiratory failure complication: unspecified whether with hypoxia or hypercapnia Qualified Code(s): J96.00 - Acute respiratory failure, unspecified whether with hypoxia or hypercapnia Is this a current diagnosis for this admission?: Yes Plan: Acute respiratory failure secondary to infective bronchitis superimposed on underlying pulmonary fibrosis. ABG negative for any hypoxia or hypercarbia. Continue BiPAP, supplemental oxygen, DuoNeb, IV steroids, empiric antibiotics. Pulmonary consulted. (2) Acute bronchitis Is this a current diagnosis for this admission?: Yes Plan: Likely infectious. Will start empiric antibiotics. (3) Interstitial pulmonary fibrosis Is this a current diagnosis for this admission?: Yes Plan: Will start on high dose steroids. Will get pulmonary records. Pulmonology consulted. (4) Pulmonary hypertension Is this a current diagnosis for this admission?: Yes Plan: Due to underlying pulmonary fibrosis. Neurology consulted. Continue monitoring vitals continue supplemental oxygen. (5) Cardiomyopathy Is this a current diagnosis for this admission?: Yes Plan: Likely IHSS. Echo on 04/14/2018 normal left ventricle cannot exclude asymmetric septal hypertrophy and possibly LVOT gradient. Continue volume resuscitation, avoid diuretics, digoxin or positive inotropes. We will consider verapamil if blood pressure recovers. Cardiology following.
[2018-04-14] MEDS ORDERED: CEFTRIAXONE 1 GM/D5W RTU 1 GM/50 ML RTUPB IV SCH (21:00)
[2018-04-14] MEDS: CEFTRIAXONE SODIUM 1,000 MG in DEXTROSE 5%-WATER 50 ML IV SCH (21:37)
[2018-04-14] MEDS: ZOLPIDEM TARTRATE 5 MG TABLET PO PRN (21:38)
[2018-04-15] MEDS: METHYLPREDNISOLONE INJ 125 MG/2 ML SDV IV SCH ×3 (02:33→17:32)
[2018-04-15 04:08] LABS: HEMATOCRIT 32.9 % (36.0-47.0); HEMOGLOBIN 10.6 g/dL (12.0-15.5); MEAN CORPUSCULAR HEMOGLOBIN 29.8 pg (27.0-33.4); MEAN CORPUSCULAR HGB CONC 32.3 g/dL (32.0-36.0); MEAN CORPUSCULAR VOLUME 92 fl (80-97); PLATELET COUNT 308 10^3/uL (150-450); RED BLOOD COUNT 3.56 10^6/uL (3.72-5.28); RED CELL DISTRIBUTION WIDTH 16.9 % (11.5-14.0)
[2018-04-15 04:32] LABS: ALANINE AMINOTRANSFERASE 17 U/L (9-52); ALBUMIN 3.3 g/dL (3.5-5.0); ALKALINE PHOSPHATASE 62 U/L (38-126); ANION GAP 10 (5-19); ASPARTATE AMINO TRANSFERASE 29 U/L (14-36); BILIRUBIN,DIRECT 0.2 mg/dL (0.0-0.4); BILIRUBIN,TOTAL 0.5 mg/dL (0.2-1.3); BLOOD UREA NITROGEN 32 mg/dL (7-20); CARBON DIOXIDE 29 mmol/L (22-30); CHLORIDE 105 mmol/L (98-107); GLUCOSE 141 mg/dL (75-110); PHOSPHORUS 4.8 mg/dL (2.5-4.5); POTASSIUM 5.2 mmol/L (3.6-5.0); SODIUM 143.5 mmol/L (137-145); TOTAL PROTEIN 6.2 g/dL (6.3-8.2)
[2018-04-15] MEDS: HEPARIN SOD (PORCINE) 5,000 UNIT/ML 1 ML SYRINGE SUBCUT SCH ×3 (05:13→21:31)
[2018-04-15] MEDS: LANSOPRAZOLE 30 MG TAB.RAP.DR PO SCH ×2 (05:13→17:36)
[2018-04-15 05:36] LABS: ARTERIAL BLOOD BASE EXCESS 0 mmol/L; ARTERIAL BLOOD H2CO3 1.14 mmol/L (1.05-1.35); ARTERIAL BLOOD HCO3 24.3 mmol/L (20-24); ARTERIAL BLOOD PCO2 37.9 mmHg (35-45); ARTERIAL BLOOD PH 7.42 (7.35-7.45); ARTERIAL BLOOD PO2 78.9 mmHg (80-100); ARTERIAL BLOOD TOTAL CO2 25.4 mmol/L (21-25)
[2018-04-15 05:39] LABS: ARTERIAL BLOOD FIO2 45%
--- NOTE | 2018-04-15 07:25 | RADIOLOGY REPORT (SQ) ---
EXAM DESCRIPTION: XR CHEST 1 VIEW COMPLETED DATE/TME: 04/15/2018 06:00 CLINICAL HISTORY: 68 years Female, resp failure/chf COMPARISON: One day prior. NUMBER OF VIEWS/TECHNIQUE: 1/AP FINDINGS: Moderate mixed interstitial and airspace opacity, moderate left lower and midlung opacities, left lower lateral thoracic clips. Moderately enlarged cardiac silhouette. No pneumothorax. Stable bony thorax. IMPRESSION: No significant change.
[2018-04-15] MEDS: TIOTROPIUM BROMIDE DPI 5 CAP/KIT (18 MCG/CAP) IH SCH (11:10)
[2018-04-15] MEDS: NORMAL SALINE 1000 ML 1,000 ML IV PRN (12:12)
--- NOTE | 2018-04-15 12:12 | RADIOLOGY REPORT (SQ) ---
EXAM DESCRIPTION: CT CHEST WITHOUT COMPLETED DATE/TIME: 04/15/2018 10:10 am REASON FOR STUDY: pulmonary fibrosis COMPARISON: CTA chest 01/28/2018. Recent radiographs. TECHNIQUE: CT scan performed of the chest without intravenous contrast. Images reviewed with lung, soft tissue and bone windows. Reconstructed coronal and sagittal MPR images reviewed. All images st ored on PACS. All CT scanners at this facility use dose modulation, iterative reconstruction, and/or weight based d osing when appropriate to reduce radiation dose to as low as reasonably achievable (ALARA). [facility]: Dose Right [facility]: CareDose [facility]: Dose Right [facility]: Teradose 4D [facility]: [employer] RADIATION DOSE: CT Rad equipment meets quality standard of care and radiation dose reduction techniq ues were employed. CTDIvol: 12.0 mGy. DLP: 436 mGy-cm. mGy. LIMITATIONS: No technical limitations. FINDINGS: LUNGS AND PLEURA: Similar appearance of pulmonary fibrosis, upper and lower lung wang. Patchy areas of ground-glass density noted in the lung wang previously have resolved. No focal con solidating pneumonia. Trace left pleural fluid. HILAR AND MEDIASTINAL STRUCTURES: Large hiatal hernia. Chronic mild mediastinal adenopathy. HEART AND VASCULAR STRUCTURES: Cardiac enlargement. Mild pericardial fluid. No aortic aneurysm dete cted. UPPER ABDOMEN: No upper abdominal mass. THYROID AND OTHER SOFT TISSUES: No masses. No adenopathy. BONES: No significant finding. HARDWARE: None in the chest. OTHER: No other significant findings. IMPRESSION: 1. Chronic changes of pulmonary fibrosis. 2. Previously noted faint ground-glass infilt rates have resolved. 3. Trace left pleural effusion, new. TECHNICAL DOCUMENTATION: JOB ID: [id number] Quality ID # [id number]: Final reports with documentation of one or more dose reduction techniques (e.g., Au tomated exposure control, adjustment of the mA and/or kV according to patient size, use of iterative reconstruction technique) 2010 [employer]- All Rights Reserved Reading location - IP/workstation name: [email or web address]
[2018-04-15 12:44] LABS: APPEARANCE,URINE SLIGHTLY-CLOUDY; BILIRUBIN,URINE NEGATIVE (NEGATIVE); COLOR,URINE YELLOW; GLUCOSE, URINE NEGATIVE (NEGATIVE); KETONES,URINE NEGATIVE (NEGATIVE); LEUKOCYTE ESTERASE,URINE NEGATIVE (NEGATIVE); NITRITE,URINE NEGATIVE (NEGATIVE); PROTEIN,URINE 30 mg/dL (NEGATIVE); URINE SPECIFIC GRAVITY 1.029; UROBILINOGEN,URINE NEGATIVE mg/dL (<2.0)
[2018-04-15] MEDS: ALPRAZOLAM 0.5 MG TABLET PO PRN ×2 (13:48→21:32)
[2018-04-15] MEDS: PROPRANOLOL HCL 40 MG TABLET PO SCH ×2 (14:43→21:31)
--- NOTE | 2018-04-15 14:48 | PDOC CONSULTATION ---
Consultation Consult Date: 04/14/18 Attending physician:: GUILLE BANUELOS Consult reason:: resp failure History of Present Illness Admission Date/PCP: 04/14/18 13:34 JUAN ANTONIO MADERA History of Present Illness: JORGE LUIS GALEANO is a 68 year old female is in after 2 days of increasing shortness of breath and a cough is nonproductive she has some chills but no fever no hemoptysis PPD negative dates unknown no history of chronic lung disease as a child or adolescent she states she has had a past medical history of pulmonary fibrosis and is being followed by pulmonary in [place] she admits to exposure to passive smoke as a child as well as adolescent smell for smokes 1/2 packs a day for approximately 35 years but has not smoked in the last 10 years significant occupational exposure to potential respiratory toxins pets no recent travel no angina-like chest pain sleeps on 1-2 pillows occasional PND occasional nocturnal cough no edema admits to snoring and restless sleep but denies nocturia unrestful sleep or excessive daytime somnolence. Past Medical History Cardiac Medical History: Reports: Heart Murmur - Mitral regurg Pulmonary Medical History: Reports: Pneumonia Neurological Medical History: Endocrine Medical History: Denies: Hyperthyroidism, Obesity Renal/ Medical History: Denies: Nephrolithiasis GI Medical History: Reports: Hiatal Hernia Denies: Crohn's Disease, Ulcerative Colitis Musculoskeltal Medical History: Denies: Gout Skin Medical History: Denies: Psoriasis Psychiatric Medical History: Reports: Depression, General Anxiety Disorder Traumatic Medical History: Denies: Traumatic Brain Injury Hematology: Denies: Anemia, Sickle Cell Disease, Bleeding Tendencies Infectious Medical History: Reports: Hepatitis C Denies: Clostridium Difficile, HIV Past Surgical History Past Surgical History: Reports: Cholecystectomy, Orthopedic Surgery - left breast lumpectomy (no cancer), Other Social History Information Source: Patient, [facility] Records Smoking Status: Former Smoker Passive smoke exposure as: Both Frequency of Alcohol Use: Occasional Hx Recreational Drug Use: No Drugs: None Hx Prescription Drug Abuse: No Do you have pets?: No Have you been exposed to any sick contacts recently?: No Have you had any recent respiratory illnesses?: Yes Have you travelled outside of [place] in the past 12 months?: No Family History Family History: CAD, Malignancy Parental Family History Reviewed: Yes Children Family History Reviewed: Yes Sibling(s) Family History Reviewed.: Yes Medication/Allergy Home Medications: Propranolol HCl 40 mg PO Q8 12/08/13 Alprazolam [Xanax] 1 mg PO BIDP PRN 11/29/17 Duloxetine HCl [Cymbalta] 30 mg PO Q12 11/29/17 Gabapentin [Neurontin 300 mg Capsule] 300 mg PO Q12 11/29/17 Zolpidem Tartrate [Ambien 5 mg Tablet] 10 mg PO HSP PRN 11/29/17 Esomeprazole Magnesium [Nexium 24Hr] 20 mg PO DAILY 04/14/18 Ferrous Sulfate [Feosol] 325 mg PO DAILY 04/14/18 Ipratropium [place] [Atrovent 0.06% Nasal [place]] 2 spray NASL TID 04/14/18 Melatonin [Melatonin 3 mg Tablet] 3 mg PO QHS 04/14/18 Naproxen Sodium [Naprelan] 500 mg PO BID 04/14/18 Promethazine HCl [Phenergan 25 mg Tablet] 25 mg PO Q4HP PRN 04/14/18 Allergies/Adverse Reactions: No Known Allergies Allergy (Verified 01/28/18 17:01) Review of Systems Constitutional: PRESENT: fatigue, weakness. ABSENT: anorexia, night sweats Eyes: ABSENT: visual disturbances Ears: ABSENT: hearing changes Nose, Mouth, and Throat: ABSENT: mouth pain Cardiovascular: PRESENT: dyspnea on exertion, orthropnea. ABSENT: chest pain, palpitations Respiratory: PRESENT: cough, dyspnea, sputum. ABSENT: hemoptysis Gastrointestinal: ABSENT: coffee ground emesis, diarrhea, dysphagia, hematemesis , hematochezia, melena Genitourinary: ABSENT: dysuria, hematuria Musculoskeletal: ABSENT: deformity, joint swelling Integumentary: ABSENT: pruritus, rash Neurological: ABSENT: abnormal gait, abnormal movements, abnormal speech, confusion, focal weakness, frequent falls, lack of coordination, memory loss, numbness Psychiatric: ABSENT: hallucinations, homidical ideation, suicidal ideation Endocrine: ABSENT: cold intolerance, heat intolerance, polydipsia, polyuria Hematologic/Lymphatic: ABSENT: easy bruising, lymphadenopathy Allergic/Immunologic: ABSENT: seasonal rhinorrhea Physical Exam Vital Signs: Temp Pulse Resp BP Pulse Ox 98.8 F 92 30 H 109/98 H 98 04/14/18 17:19 04/14/18 17:19 04/14/18 17:19 04/14/18 17:19 04/14/18 17:19 Intake & Output 04/13/18 04/14/18 04/15/18 06:59 06:59 06:59 Intake Total 500 Balance 500 Weight 81.9 kg General appearance: PRESENT: no acute distress, cooperative, disheveled, obese Head exam: PRESENT: atraumatic, normocephalic Eye exam: PRESENT: conjunctiva pale, EOMI. ABSENT: nystagmus, periorbital swelling, other Mouth exam: PRESENT: dry mucosa, neck supple, tongue midline Teeth exam: PRESENT: poor dentation Neck exam: ABSENT: carotid bruit, JVD, lymphadenopathy, thyromegaly, tracheal deviation, tracheostomy Respiratory exam: PRESENT: decreased breath sounds, prolonged expiratory phas, rales, rhonchi, unlabored. ABSENT: retraction, stridor, tachypnea Cardiovascular exam: PRESENT: RRR, +S1, +S2, tachycardia Pulses: PRESENT: normal radial pulses GI/Abdominal exam: PRESENT: soft. ABSENT: tenderness Extremities exam: ABSENT: calf tenderness, clubbing, joint swelling Musculoskeletal exam: ABSENT: deformity, dislocation Neurological exam: PRESENT: alert, awake Psychiatric exam: PRESENT: appropriate affect Skin exam: PRESENT: dry, warm Results Impressions: Chest X-Ray 04/14/18 11:06 IMPRESSION: Interval development of congestive heart failure with left pleural effusion. Superimposed on interstitial lung disease, pulmonary fibrosis. Large retrocardiac hiatal hernia. Assessment & Plan - Diagnosis (1) Acute respiratory failure Qualifiers: Respiratory failure complication: unspecified whether with hypoxia or hypercapnia Qualified Code(s): J96.00 - Acute respiratory failure, unspecified whether with hypoxia or hypercapnia Is this a current diagnosis for this admission?: Yes Plan: Requiring BiPAP as well as high flow oxygen (2) GERD (gastroesophageal reflux disease) Is this a current diagnosis for this admission?: Yes Plan: Long-standing chronic large hernia and gastric content in thoracic cavity (3) Interstitial pulmonary fibrosis Is this a current diagnosis for this admission?: Yes (4) Pleural effusion Is this a current diagnosis for this admission?: Yes Plan: Thoracentesis - Time Total Critical Time (Minutes): 55
--- NOTE | 2018-04-15 14:50 | PDOC PROGRESS REPORT ---
Subjective Progress Note for:: 04/15/18 Subjective:: Little bit better today still requiring BiPAP elevated FiO2 is Reason For Visit: RESPIRATORY FAILURE Physical Exam Vital Signs: Temp Pulse Resp BP Pulse Ox 98.6 F 85 22 H 157/103 H 97 04/15/18 07:00 04/15/18 08:25 04/15/18 08:10 04/15/18 08:10 04/15/18 08:09 Intake & Output 04/14/18 04/15/18 04/16/18 06:59 06:59 06:59 Intake Total 1021 Output Total 475 50 Balance 546 -50 Weight 81.1 kg General appearance: PRESENT: no acute distress, cooperative, disheveled, obese Head exam: PRESENT: atraumatic, normocephalic Eye exam: PRESENT: conjunctiva pale, EOMI Mouth exam: PRESENT: dry mucosa, neck supple, tongue midline Neck exam: ABSENT: carotid bruit, JVD, lymphadenopathy, thyromegaly, tracheal deviation, tracheostomy Respiratory exam: PRESENT: decreased breath sounds, prolonged expiratory phas, rales, rhonchi, tachypnea, unlabored. ABSENT: retraction, stridor Cardiovascular exam: PRESENT: RRR, +S1, +S2 Pulses: PRESENT: normal radial pulses GI/Abdominal exam: PRESENT: soft. ABSENT: tenderness Extremities exam: ABSENT: calf tenderness, clubbing, joint swelling Musculoskeletal exam: ABSENT: deformity, dislocation Neurological exam: PRESENT: alert, awake Psychiatric exam: PRESENT: appropriate affect Skin exam: PRESENT: dry, warm Results Laboratory Results: 04/15/18 03:52 04/15/18 03:52 04/15/18 04/15/18 04/15/18 03:52 03:52 05:20 WBC 11.0 H RBC 3.56 L Hgb 10.6 L Hct 32.9 L MCV 92 MCH 29.8 MCHC 32.3 RDW 16.9 H Plt Count 308 Carbonic Acid 1.14 HCO3/H2CO3 Ratio 21:1 ABG pH 7.42 ABG pCO2 37.9 ABG pO2 78.9 L ABG HCO3 24.3 H ABG O2 Saturation 96.0 ABG Base Excess 0 FiO2 45% Sodium 143.5 Potassium 5.2 H Chloride 105 Carbon Dioxide 29 Anion Gap 10 BUN 32 H Creatinine 0.68 Est GFR ( Amer) > 60 Est GFR (Non-Af Amer) > 60 Glucose 141 H Calcium 9.0 Phosphorus 4.8 H Magnesium 2.1 Total Bilirubin 0.5 AST 29 ALT 17 Alkaline Phosphatase 62 Total Protein 6.2 L Albumin 3.3 L Impressions: Chest X-Ray 04/15/18 06:00 IMPRESSION: No significant change. Assessment & Plan - Diagnosis (1) Acute respiratory failure Qualifiers: Respiratory failure complication: unspecified whether with hypoxia or hypercapnia Qualified Code(s): J96.00 - Acute respiratory failure, unspecified whether with hypoxia or hypercapnia Is this a current diagnosis for this admission?: Yes Plan: Requiring BiPAP as well as high flow oxygen (2) GERD (gastroesophageal reflux disease) Is this a current diagnosis for this admission?: Yes Plan: Long-standing chronic large hernia and gastric content in thoracic cavity (3) Interstitial pulmonary fibrosis Is this a current diagnosis for this admission?: Yes Plan: Previously diagnosed by university president in [place] (4) Pleural effusion Is this a current diagnosis for this admission?: Yes Plan: Thoracentesis - Time Total Critical Time (Minutes): 45
[2018-04-15] MEDS ORDERED: GUAIFENESIN 600 MG TABLET.SA PO ONE (16:00)
--- NOTE | 2018-04-15 16:07 | PDOC PROGRESS REPORT ---
Subjective Progress Note for:: 04/15/18 Subjective:: JORGE LUIS GALEANO is a 68 year old female past medical history of possible restrictive lung disease due to pulmonary fibrosis and cardiomyopathy both pending final diagnosis. Patient presented to ED complaining of worsening shortness of breath associated with mild nonproductive cough. As per patient she was sent to a industrial diamond polisher for possible cardiomyopathy however she has not had a definitive diagnosis, then she was sent to a pulmonology for possible pulmonary fibrosis and she has a pending lung biopsy. She has been taking prednisone 60 mg for the last 30 days and she ran out about 2 days ago. She denies any fever, chills, nausea, vomiting, diarrhea, constipation or any urinary symptoms. Last night she noticed worsening shortness of breath and came to ED for further evaluation. In ED she was seen to be in severe respiratory distress and was placed on BiPAP. Also found to be hypotensive. 02/13/2018. No acute events overnight. Alert oriented very pleasant and cooperative with physical examination. She is on nasal cannula in mild respiratory distress cannot speak in full sentences but she is stating that she is feeling much better than yesterday. Denies any fever, chills, nausea, vomiting, diarrhea, constipation or any urinary symptoms. Reason For Visit: RESPIRATORY FAILURE Physical Exam Vital Signs: Temp Pulse Resp BP Pulse Ox 98.6 F 95 27 H 151/85 H 94 04/15/18 14:00 04/15/18 14:00 04/15/18 16:00 04/15/18 14:44 04/15/18 16:00 Intake & Output 04/14/18 04/15/18 04/16/18 06:59 06:59 06:59 Intake Total 1021 687 Output Total 475 200 Balance 546 487 Weight 81.1 kg General appearance: PRESENT: mild distress Neck exam: ABSENT: carotid bruit, JVD, lymphadenopathy, thyromegaly Respiratory exam: PRESENT: clear to auscultation trinh, other - Bowel sounds heard on the left lung base.. ABSENT: rales, rhonchi, wheezes Cardiovascular exam: PRESENT: RRR. ABSENT: diastolic murmur, rubs, systolic murmur GI/Abdominal exam: PRESENT: normal bowel sounds, soft. ABSENT: distended, guarding, mass, organolmegaly, rebound, tenderness Musculoskeletal exam: PRESENT: ambulatory, deformity, dislocation, full ROM, normal inspection, tenderness, other Results Laboratory Results: 04/15/18 03:52 04/15/18 03:52 04/15/18 04/15/18 04/15/18 03:52 03:52 05:20 WBC 11.0 H RBC 3.56 L Hgb 10.6 L Hct 32.9 L MCV 92 MCH 29.8 MCHC 32.3 RDW 16.9 H Plt Count 308 Carbonic Acid 1.14 HCO3/H2CO3 Ratio 21:1 ABG pH 7.42 ABG pCO2 37.9 ABG pO2 78.9 L ABG HCO3 24.3 H ABG O2 Saturation 96.0 ABG Base Excess 0 FiO2 45% Sodium 143.5 Potassium 5.2 H Chloride 105 Carbon Dioxide 29 Anion Gap 10 BUN 32 H Creatinine 0.68 Est GFR ( Amer) > 60 Est GFR (Non-Af Amer) > 60 Glucose 141 H Calcium 9.0 Phosphorus 4.8 H Magnesium 2.1 Total Bilirubin 0.5 AST 29 ALT 17 Alkaline Phosphatase 62 Total Protein 6.2 L Albumin 3.3 L Urine Color Urine Appearance Urine pH Ur Specific [place] Urine Protein Urine Glucose (UA) Urine Ketones Urine Blood Urine Nitrite Ur Leukocyte Esterase Urine WBC (Auto) Urine RBC (Auto) 04/15/18 11:50 WBC RBC Hgb Hct MCV MCH MCHC RDW Plt Count Carbonic Acid HCO3/H2CO3 Ratio ABG pH ABG pCO2 ABG pO2 ABG HCO3 ABG O2 Saturation ABG Base Excess FiO2 Sodium Potassium Chloride Carbon Dioxide Anion Gap BUN Creatinine Est GFR ( Amer) Est GFR (Non-Af Amer) Glucose Calcium Phosphorus Magnesium Total Bilirubin AST ALT Alkaline Phosphatase Total Protein Albumin Urine Color YELLOW Urine Appearance SLIGHTLY-CLOUDY Urine pH 5.0 Ur Specific [place] 1.029 Urine Protein 30 H Urine Glucose (UA) NEGATIVE Urine Ketones NEGATIVE Urine Blood NEGATIVE Urine Nitrite NEGATIVE Ur Leukocyte Esterase NEGATIVE Urine WBC (Auto) 2 Urine RBC (Auto) 1 Impressions: Chest X-Ray 04/15/18 06:00 IMPRESSION: No significant change. Chest CT 04/15/18 09:41 IMPRESSION: 1. Chronic changes of pulmonary fibrosis. 2. Previously noted faint ground-glass infiltrates have resolved. 3. Trace left pleural effusion, new. Assessment & Plan - Diagnosis (1) Acute respiratory failure Qualifiers: Respiratory failure complication: unspecified whether with hypoxia or hypercapnia Qualified Code(s): J96.00 - Acute respiratory failure, unspecified whether with hypoxia or hypercapnia Is this a current diagnosis for this admission?: Yes Plan: Acute respiratory failure secondary to infective bronchitis superimposed on underlying pulmonary fibrosis. ABG on 04/14/2018 negative for any hypoxia or hypercarbia. ABG on 04/15/2018 normal pH with mild hypoxia. Continue BiPAP, supplemental oxygen, DuoNeb, IV steroids, empiric antibiotics. Pulmonary on board. (2) Acute bronchitis Is this a current diagnosis for this admission?: Yes Plan: Likely infectious. Will start empiric antibiotics. Cultures have been negative so far. (3) Interstitial pulmonary fibrosis Is this a current diagnosis for this admission?: Yes Plan: Will start on high dose steroids. Will get pulmonary records. Pulmonology consulted. Sees skin care specialist as outpatient. (4) Pulmonary hypertension Is this a current diagnosis for this admission?: Yes Plan: Due to underlying pulmonary fibrosis. Pulmonary. Continue monitoring vitals continue supplemental oxygen. (5) Cardiomyopathy Is this a current diagnosis for this admission?: Yes Plan: Likely IHSS. Echo on 04/14/2018 normal left ventricle cannot exclude asymmetric septal hypertrophy and possibly LVOT gradient not optimal. Pending repeat echo. Continue volume resuscitation, avoid diuretics, digoxin or positive inotropes. We will consider verapamil if blood pressure recovers. Cardiology following. (6) GERD (gastroesophageal reflux disease) Is this a current diagnosis for this admission?: Yes Plan: Continue PPI. Outpatient GI follow-up. (7) Insomnia Is this a current diagnosis for this admission?: No Plan: Will restart Ambien. (8) Depression Is this a current diagnosis for this admission?: Yes Plan: Restart home meds.
[2018-04-15 16:42] LABS: ANION GAP 8 (5-19); BLOOD UREA NITROGEN 31 mg/dL (7-20); CALCIUM 9.3 mg/dL (8.4-10.2); CARBON DIOXIDE 30 mmol/L (22-30); CHLORIDE 106 mmol/L (98-107); GLUCOSE 169 mg/dL (75-110); POTASSIUM 5.2 mmol/L (3.6-5.0); SODIUM 143.9 mmol/L (137-145)
[2018-04-15] MEDS ORDERED: CALCIUM GLUCONATE 1000 MG/10 ML INJ IV ONE (17:00)
[2018-04-15] MEDS: GABAPENTIN 300 MG CAPSULE PO SCH (21:32)
[2018-04-15] MEDS: GUAIFENESIN 600 MG TABLET.SA PO SCH (21:32)
[2018-04-15] MEDS: DULOXETINE HCL 30 MG CAPSULE.DR PO SCH (21:32)
[2018-04-15] MEDS: ZOLPIDEM TARTRATE 5 MG TABLET PO PRN (21:32)
[2018-04-15] MEDS: CEFTRIAXONE SODIUM 1,000 MG in DEXTROSE 5%-WATER 50 ML IV SCH (21:33)
[2018-04-16] MEDS: METHYLPREDNISOLONE INJ 125 MG/2 ML SDV IV SCH ×3 (03:13→17:42)
[2018-04-16 04:07] LABS: ABSOLUTE LYMPHOCYTES (AUTO) 0.6 10^3/uL (0.5-4.7); ABSOLUTE MONOCYTES (AUTO) 0.3 10^3/uL (0.1-1.4); ABSOLUTE NEUT (AUTO) 9.6 10^3/uL (1.7-8.2); BASOPHILS % (AUTO) 0.1 % (0-2); HEMATOCRIT 30.6 % (36.0-47.0); HEMOGLOBIN 9.9 g/dL (12.0-15.5); LYMPHOCYTES % (AUTO) 5.7 % (13-45); MEAN CORPUSCULAR HEMOGLOBIN 29.8 pg (27.0-33.4); MEAN CORPUSCULAR HGB CONC 32.4 g/dL (32.0-36.0); MEAN CORPUSCULAR VOLUME 92 fl (80-97); MONOCYTES % (AUTO) 2.8 % (3-13); PLATELET COUNT 290 10^3/uL (150-450); RED BLOOD COUNT 3.33 10^6/uL (3.72-5.28); RED CELL DISTRIBUTION WIDTH 16.9 % (11.5-14.0); SEGMENTED NEUTROPHILS % (AUTO) 91.4 % (42-78); TOTAL CELLS COUNTED % (AUTO) 100 %; WHITE BLOOD COUNT 10.5 10^3/uL (4.0-10.5)
[2018-04-16 04:14] LABS: INTERNATIONAL RATION (INR) 1.03
[2018-04-16 04:15] LABS: PARTIAL THROMBOPLASTIN TIME 30.8 SEC (23.5-35.8)
[2018-04-16 04:23] LABS: ALANINE AMINOTRANSFERASE 21 U/L (9-52); ALBUMIN 3.1 g/dL (3.5-5.0); ALKALINE PHOSPHATASE 53 U/L (38-126); ANION GAP 10 (5-19); ASPARTATE AMINO TRANSFERASE 28 U/L (14-36); BILIRUBIN,DIRECT 0.2 mg/dL (0.0-0.4); BILIRUBIN,TOTAL 0.3 mg/dL (0.2-1.3); BLOOD UREA NITROGEN 28 mg/dL (7-20); CARBON DIOXIDE 27 mmol/L (22-30); CHLORIDE 106 mmol/L (98-107); GLUCOSE 139 mg/dL (75-110); POTASSIUM 4.7 mmol/L (3.6-5.0); SODIUM 142.9 mmol/L (137-145); TOTAL PROTEIN 5.8 g/dL (6.3-8.2)
[2018-04-16] MEDS: PROPRANOLOL HCL 40 MG TABLET PO SCH ×3 (05:19→21:41)
[2018-04-16] MEDS: HEPARIN SOD (PORCINE) 5,000 UNIT/ML 1 ML SYRINGE SUBCUT SCH ×3 (05:19→21:41)
[2018-04-16] MEDS: LANSOPRAZOLE 30 MG TAB.RAP.DR PO SCH ×2 (05:19→17:42)
[2018-04-16 05:51] LABS: ARTERIAL BLOOD BASE EXCESS 4.4 mmol/L; ARTERIAL BLOOD FIO2 45%; ARTERIAL BLOOD H2CO3 1.38 mmol/L (1.05-1.35); ARTERIAL BLOOD HCO3 29.4 mmol/L (20-24); ARTERIAL BLOOD O2 SATURATION 98.1 % (94-98); ARTERIAL BLOOD PH 7.42 (7.35-7.45); ARTERIAL BLOOD PO2 110.9 mmHg (80-100); ARTERIAL BLOOD TOTAL CO2 30.8 mmol/L (21-25)
--- NOTE | 2018-04-16 06:40 | RADIOLOGY REPORT (SQ) ---
EXAM DESCRIPTION: XR CHEST 1 VIEW COMPLETED DATE/TME: 04/16/2018 06:00 CLINICAL HISTORY: Respiratory Distress. 68 years Female, resp failure COMPARISON: One day prior. NUMBER OF VIEWS/TECHNIQUE: 1/AP FINDINGS: Moderate interstitial markings, small left basilar opacity-effusion. Moderately enlarged cardiac silhouette. Left lower lateral thoracic clips. No pneumothorax. Stable bony thorax. IMPRESSION: No significant change.
[2018-04-16] MEDS: NORMAL SALINE 1000 ML 1,000 ML IV PRN (06:48)
[2018-04-16] MEDS: FERROUS SULFATE 325 MG TABLET PO SCH (11:15)
[2018-04-16] MEDS: GABAPENTIN 300 MG CAPSULE PO SCH ×2 (11:15→21:39)
[2018-04-16] MEDS: ALPRAZOLAM 0.5 MG TABLET PO PRN ×2 (11:15→21:39)
[2018-04-16] MEDS: DULOXETINE HCL 30 MG CAPSULE.DR PO SCH ×2 (11:15→21:39)
[2018-04-16] MEDS: TIOTROPIUM BROMIDE DPI 5 CAP/KIT (18 MCG/CAP) IH SCH (11:16)
[2018-04-16] MEDS: GUAIFENESIN 600 MG TABLET.SA PO SCH ×2 (11:16→21:39)
--- NOTE | 2018-04-16 16:46 | PDOC PROGRESS REPORT ---
Subjective Progress Note for:: 04/16/18 Subjective:: JORGE LUIS GALEANO is a 68 year old female past medical history of possible restrictive lung disease due to pulmonary fibrosis and cardiomyopathy both pending final diagnosis. Patient presented to ED complaining of worsening shortness of breath associated with mild nonproductive cough. As per patient she was sent to a quality assurance analyst for possible cardiomyopathy however she has not had a definitive diagnosis, then she was sent to a pulmonology for possible pulmonary fibrosis and she has a pending lung biopsy. She has been taking prednisone 60 mg for the last 30 days and she ran out about 2 days ago. She denies any fever, chills, nausea, vomiting, diarrhea, constipation or any urinary symptoms. Last night she noticed worsening shortness of breath and came to ED for further evaluation. In ED she was seen to be in severe respiratory distress and was placed on BiPAP. Also found to be hypotensive. 02/13/2018. No acute events overnight. Alert oriented very pleasant and cooperative with physical examination. She is on nasal cannula in mild respiratory distress cannot speak in full sentences but she is stating that she is feeling much better than yesterday. Denies any fever, chills, nausea, vomiting, diarrhea, constipation or any urinary symptoms. 02/14/2018. No acute events overnight. Alert oriented very pleasant and cooperative physical examination. She says she is feeling better but still having dyspnea on exertion. She denies any fever, chills, nausea, vomiting, diarrhea, constipation. Reason For Visit: RESPIRATORY FAILURE Physical Exam Vital Signs: Temp Pulse Resp BP Pulse Ox 98.4 F 68 22 H 141/90 H 99 04/16/18 14:00 04/16/18 14:00 04/16/18 14:00 04/16/18 14:00 04/16/18 14:00 Intake & Output 04/15/18 04/16/18 04/17/18 06:59 06:59 06:59 Intake Total 1021 1245 Output Total 475 840 880 Balance 546 405 -880 Weight 81.1 kg 81.1 kg General appearance: PRESENT: no acute distress, well-developed, well-nourished Respiratory exam: PRESENT: crackles, decreased breath sounds. ABSENT: rales, rhonchi, wheezes Cardiovascular exam: PRESENT: RRR. ABSENT: diastolic murmur, rubs, systolic murmur GI/Abdominal exam: PRESENT: normal bowel sounds, soft. ABSENT: distended, guarding, mass, organolmegaly, rebound, tenderness Neurological exam: PRESENT: alert, awake, oriented to person, oriented to place , oriented to time, oriented to situation, CN II-XII grossly intact. ABSENT: motor sensory deficit Results Laboratory Results: 04/16/18 03:33 04/16/18 03:33 04/15/18 04/16/18 04/16/18 16:20 03:33 03:33 WBC 10.5 RBC 3.33 L Hgb 9.9 L Hct 30.6 L MCV 92 MCH 29.8 MCHC 32.4 RDW 16.9 H Plt Count 290 Seg Neutrophils % 91.4 H Lymphocytes % 5.7 L Monocytes % 2.8 L Eosinophils % 0.0 Basophils % 0.1 Absolute Neutrophils 9.6 H Absolute Lymphocytes 0.6 Absolute Monocytes 0.3 Absolute Eosinophils 0.0 Absolute Basophils 0.0 Carbonic Acid HCO3/H2CO3 Ratio ABG pH ABG pCO2 ABG pO2 ABG HCO3 ABG O2 Saturation ABG Base Excess FiO2 Sodium 143.9 142.9 Potassium 5.2 H 4.7 Chloride 106 106 Carbon Dioxide 30 27 Anion Gap 8 10 BUN 31 H 28 H Creatinine 0.67 0.61 Est GFR ( Amer) > 60 > 60 Est GFR (Non-Af Amer) > 60 > 60 Glucose 169 H 139 H Calcium 9.3 9.0 Magnesium 2.1 Total Bilirubin 0.3 AST 28 ALT 21 Alkaline Phosphatase 53 Total Protein 5.8 L Albumin 3.1 L 04/16/18 05:35 WBC RBC Hgb Hct MCV MCH MCHC RDW Plt Count Seg Neutrophils % Lymphocytes % Monocytes % Eosinophils % Basophils % Absolute Neutrophils Absolute Lymphocytes Absolute Monocytes Absolute Eosinophils Absolute Basophils Carbonic Acid 1.38 H HCO3/H2CO3 Ratio 21:1 ABG pH 7.42 ABG pCO2 46.0 H ABG pO2 110.9 H ABG HCO3 29.4 H ABG O2 Saturation 98.1 H ABG Base Excess 4.4 FiO2 45% Sodium Potassium Chloride Carbon Dioxide Anion Gap BUN Creatinine Est GFR ( Amer) Est GFR (Non-Af Amer) Glucose Calcium Magnesium Total Bilirubin AST ALT Alkaline Phosphatase Total Protein Albumin Impressions: Chest CT 04/15/18 09:41 IMPRESSION: 1. Chronic changes of pulmonary fibrosis. 2. Previously noted faint ground-glass infiltrates have resolved. 3. Trace left pleural effusion, new. Chest X-Ray 04/16/18 06:00 IMPRESSION: No significant change. Assessment & Plan - Diagnosis (1) Acute respiratory failure Qualifiers: Respiratory failure complication: unspecified whether with hypoxia or hypercapnia Qualified Code(s): J96.00 - Acute respiratory failure, unspecified whether with hypoxia or hypercapnia Is this a current diagnosis for this admission?: Yes Plan: Acute respiratory failure secondary to infective bronchitis superimposed on underlying pulmonary fibrosis. ABG on 04/14/2018 negative for any hypoxia or hypercarbia. ABG on 04/15/2018 normal pH with mild hypoxia. ABG on 04/16/2018 7.46, PO2 110.9 Continue BiPAP, supplemental oxygen, DuoNeb, IV steroids, day 3 of IV ceftriaxone. Pulmonary on board. (2) Acute bronchitis Is this a current diagnosis for this admission?: Yes Plan: Leukocytosis and cough has improved. Likely infectious. She has been on empiric antibiotics with the last 3 days. Follow-up sputum and blood cultures. (3) Interstitial pulmonary fibrosis Is this a current diagnosis for this admission?: Yes Plan: Will start on high dose steroids. Will get pulmonary records. Pulmonology consulted. Sees pulmonary physical therapist as outpatient. (4) Pulmonary hypertension Is this a current diagnosis for this admission?: Yes Plan: Due to underlying pulmonary fibrosis. Pulmonary. Continue monitoring vitals continue supplemental oxygen. (5) Cardiomyopathy Is this a current diagnosis for this admission?: Yes Plan: Likely IHSS. Echo on 04/14/2018 normal left ventricle cannot exclude asymmetric septal hypertrophy and possibly LVOT gradient not optimal. Pending repeat echo. Continue volume resuscitation, avoid diuretics, digoxin or positive inotropes. Cardiology following. (6) Insomnia Is this a current diagnosis for this admission?: No Plan: Restarted on Ambien. (7) Depression Is this a current diagnosis for this admission?: Yes Plan: Restart home meds. (8) Hiatal hernia with GERD Is this a current diagnosis for this admission?: Yes Plan: Continue PPIs. Consult surgery
[2018-04-16] MEDS: IPRATROPIUM BROMIDE 0.06% NASAL SPRAY 15 ML NASL SCH (17:42)
--- NOTE | 2018-04-16 21:29 | PDOC CONSULTATION ---
Consultation Consult Date: 04/16/18 Consult reason:: Hiatal hernia History of Present Illness Admission Date/PCP: 04/14/18 13:34 JUAN ANTONIO MADERA Patient complains of: Reflux, large hiatal hernia, shortness of breath History of Present Illness: JORGE LUIS GALEANO is a 68 year old female seen at the request of the hospitalist service. The patient has pulmonary fibrosis and worsening shortness of breath. She is currently in the intensive care unit on BiPAP. Patient has a history of a large hiatal hernia that she has known about for the last several years. The patient has intermittent reflux, that is controlled with PPIs and diet. She reports early satiety and a fullness in her chest when she eats a large meal. Patient denies any active chest pain. She is actively short of breath at this time. She denies any current history of headache, nausea, vomiting, melena, hematochezia, hematemesis, blurry vision, orthostasis. Past Medical History Cardiac Medical History: Reports: Heart Murmur - Mitral regurg Pulmonary Medical History: Reports: Pneumonia Neurological Medical History: Endocrine Medical History: Denies: Hyperthyroidism, Obesity Renal/ Medical History: Denies: Nephrolithiasis GI Medical History: Reports: Hiatal Hernia Denies: Crohn's Disease, Ulcerative Colitis Musculoskeltal Medical History: Denies: Gout Skin Medical History: Denies: Psoriasis Psychiatric Medical History: Reports: Depression, General Anxiety Disorder Traumatic Medical History: Denies: Traumatic Brain Injury Hematology: Denies: Anemia, Sickle Cell Disease, Bleeding Tendencies Infectious Medical History: Reports: Hepatitis C Denies: Clostridium Difficile, HIV Past Surgical History Past Surgical History: Reports: Cholecystectomy, Orthopedic Surgery - left breast lumpectomy (no cancer), Other Social History Smoking Status: Former Smoker Frequency of Alcohol Use: Occasional Hx Recreational Drug Use: No Drugs: None Hx Prescription Drug Abuse: No Family History Family History: CAD, Malignancy Parental Family History Reviewed: Yes Children Family History Reviewed: Yes Sibling(s) Family History Reviewed.: Yes Medication/Allergy Home Medications: Propranolol HCl 40 mg PO Q8 12/08/13 Alprazolam [Xanax] 1 mg PO BIDP PRN 11/29/17 Duloxetine HCl [Cymbalta] 30 mg PO Q12 11/29/17 Gabapentin [Neurontin 300 mg Capsule] 300 mg PO Q12 11/29/17 Zolpidem Tartrate [Ambien 5 mg Tablet] 10 mg PO HSP PRN 11/29/17 Esomeprazole Magnesium [Nexium 24Hr] 20 mg PO DAILY 04/14/18 Ferrous Sulfate [Feosol] 325 mg PO DAILY 04/14/18 Ipratropium [place] [Atrovent 0.06% Nasal [place]] 2 spray NASL TID 04/14/18 Melatonin [Melatonin 3 mg Tablet] 3 mg PO QHS 04/14/18 Naproxen Sodium [Naprelan] 500 mg PO BID 04/14/18 Promethazine HCl [Phenergan 25 mg Tablet] 25 mg PO Q4HP PRN 04/14/18 Allergies/Adverse Reactions: No Known Allergies Allergy (Verified 01/28/18 17:01) Review of Systems Constitutional: PRESENT: fatigue. ABSENT: anorexia, chills, fever(s), headache( s) Eyes: ABSENT: visual disturbances Ears: ABSENT: hearing changes Nose, Mouth, and Throat: ABSENT: sore throat Cardiovascular: PRESENT: dyspnea on exertion. ABSENT: chest pain Respiratory: PRESENT: dyspnea. ABSENT: hemoptysis Gastrointestinal: PRESENT: heartburn. ABSENT: abdominal pain, bloating, nausea , vomiting Musculoskeletal: ABSENT: back pain Integumentary: ABSENT: pruritus, rash Neurological: ABSENT: confusion, convulsions, dizziness Psychiatric: ABSENT: anxiety, depression, hallucinations Endocrine: ABSENT: cold intolerance, heat intolerance Hematologic/Lymphatic: ABSENT: easy bleeding, easy bruising Physical Exam Vital Signs: Temp Pulse Resp BP Pulse Ox 99.5 F 75 33 H 137/84 H 99 04/16/18 19:17 04/16/18 18:00 04/16/18 18:00 04/16/18 18:00 04/16/18 18:00 Intake & Output 04/15/18 04/16/18 04/17/18 06:59 06:59 06:59 Intake Total 1021 1245 Output Total 179 769 6874 Balance 546 405 -1040 Weight 81.1 kg 81.1 kg General appearance: PRESENT: mild distress - Respiratory Head exam: PRESENT: atraumatic, normocephalic Eye exam: PRESENT: EOMI, PERRLA. ABSENT: scleral icterus Mouth exam: PRESENT: neck supple Teeth exam: ABSENT: poor dentation Neck exam: ABSENT: meningismus, tenderness, thyromegaly, tracheal deviation Respiratory exam: PRESENT: rales, retraction, rhonchi, wheezes, other - BiPAP in place. ABSENT: chest wall tenderness Cardiovascular exam: PRESENT: RRR Pulses: PRESENT: normal radial pulses Vascular exam: PRESENT: normal capillary refill. ABSENT: pallor GI/Abdominal exam: PRESENT: normal bowel sounds, soft. ABSENT: distended, guarding, hernia, tenderness Rectal exam: PRESENT: deferred Extremities exam: ABSENT: clubbing Musculoskeletal exam: ABSENT: deformity Neurological exam: PRESENT: alert, awake, oriented to person, oriented to place , oriented to time, oriented to situation, CN II-XII grossly intact. ABSENT: motor sensory deficit Psychiatric exam: ABSENT: agitated, anxious, depressed Focused psych exam: ABSENT: delusional Skin exam: ABSENT: cyanosis, erythema, jaundice Results Laboratory Results: 04/16/18 03:33 04/16/18 03:33 04/16/18 04/16/18 04/16/18 03:33 03:33 05:35 WBC 10.5 RBC 3.33 L Hgb 9.9 L Hct 30.6 L MCV 92 MCH 29.8 MCHC 32.4 RDW 16.9 H Plt Count 290 Seg Neutrophils % 91.4 H Lymphocytes % 5.7 L Monocytes % 2.8 L Eosinophils % 0.0 Basophils % 0.1 Absolute Neutrophils 9.6 H Absolute Lymphocytes 0.6 Absolute Monocytes 0.3 Absolute Eosinophils 0.0 Absolute Basophils 0.0 Carbonic Acid 1.38 H HCO3/H2CO3 Ratio 21:1 ABG pH 7.42 ABG pCO2 46.0 H ABG pO2 110.9 H ABG HCO3 29.4 H ABG O2 Saturation 98.1 H ABG Base Excess 4.4 FiO2 45% Sodium 142.9 Potassium 4.7 Chloride 106 Carbon Dioxide 27 Anion Gap 10 BUN 28 H Creatinine 0.61 Est GFR ( Amer) > 60 Est GFR (Non-Af Amer) > 60 Glucose 139 H Calcium 9.0 Magnesium 2.1 Total Bilirubin 0.3 AST 28 ALT 21 Alkaline Phosphatase 53 Total Protein 5.8 L Albumin 3.1 L Impressions: Chest CT 04/15/18 09:41 IMPRESSION: 1. Chronic changes of pulmonary fibrosis. 2. Previously noted faint ground-glass infiltrates have resolved. 3. Trace left pleural effusion, new. Chest X-Ray 04/16/18 06:00 IMPRESSION: No significant change. Assessment & Plan - Diagnosis (1) Hiatal hernia with GERD Is this a current diagnosis for this admission?: Yes - Plan Summary Plan Summary: This is a 68-year-old female with a hiatal hernia and reflux disease. Currently I have made recommendations for lifestyle modifications. She should avoid fizzy drinks like beer and soda pop. She should eat small meals, multiple times per day. She should not lay flat within 2 hours of eating or drinking anything. She should elevate the head of her bed at least 30 degrees. At this time, her overall medical condition would preclude her from hiatal hernia surgery. I will see her in the office once her medical condition has improved for a workup, in the hopes of performing a hiatal hernia repair. The patient has been provided my contact information. She is to call for an appointment once she has been discharged from the hospital.
[2018-04-16] MEDS: CARVEDILOL 12.5 MG TABLET PO SCH (21:38)
[2018-04-16] MEDS: ZOLPIDEM TARTRATE 5 MG TABLET PO PRN (21:38)
[2018-04-16] MEDS: CEFTRIAXONE SODIUM 1,000 MG in DEXTROSE 5%-WATER 50 ML IV SCH (21:38)
[2018-04-17] MEDS: METHYLPREDNISOLONE INJ 125 MG/2 ML SDV IV SCH ×3 (02:29→18:06)
[2018-04-17 05:11] LABS: ABSOLUTE LYMPHOCYTES (AUTO) 0.5 10^3/uL (0.5-4.7); ABSOLUTE MONOCYTES (AUTO) 0.2 10^3/uL (0.1-1.4); ABSOLUTE NEUT (AUTO) 5.8 10^3/uL (1.7-8.2); BASOPHILS % (AUTO) 0.1 % (0-2); HEMATOCRIT 26.9 % (36.0-47.0); HEMOGLOBIN 8.9 g/dL (12.0-15.5); LYMPHOCYTES % (AUTO) 7.2 % (13-45); MEAN CORPUSCULAR HEMOGLOBIN 29.8 pg (27.0-33.4); MEAN CORPUSCULAR HGB CONC 32.9 g/dL (32.0-36.0); MEAN CORPUSCULAR VOLUME 91 fl (80-97); MONOCYTES % (AUTO) 3.3 % (3-13); PLATELET COUNT 237 10^3/uL (150-450); RED BLOOD COUNT 2.97 10^6/uL (3.72-5.28); RED CELL DISTRIBUTION WIDTH 16.9 % (11.5-14.0); SEGMENTED NEUTROPHILS % (AUTO) 89.4 % (42-78); TOTAL CELLS COUNTED % (AUTO) 100 %; WHITE BLOOD COUNT 6.5 10^3/uL (4.0-10.5)
[2018-04-17 05:36] LABS: ALANINE AMINOTRANSFERASE 25 U/L (9-52); ALBUMIN 2.9 g/dL (3.5-5.0); ALKALINE PHOSPHATASE 47 U/L (38-126); ANION GAP 8 (5-19); ASPARTATE AMINO TRANSFERASE 23 U/L (14-36); BILIRUBIN,DIRECT 0.2 mg/dL (0.0-0.4); BILIRUBIN,TOTAL 0.3 mg/dL (0.2-1.3); BLOOD UREA NITROGEN 24 mg/dL (7-20); CALCIUM 8.8 mg/dL (8.4-10.2); CARBON DIOXIDE 29 mmol/L (22-30); CHLORIDE 104 mmol/L (98-107); GLUCOSE 125 mg/dL (75-110); POTASSIUM 4.4 mmol/L (3.6-5.0); SODIUM 141.3 mmol/L (137-145); TOTAL PROTEIN 5.3 g/dL (6.3-8.2)
[2018-04-17] MEDS: LANSOPRAZOLE 30 MG TAB.RAP.DR PO SCH ×2 (06:11→18:06)
[2018-04-17] MEDS: HEPARIN SOD (PORCINE) 5,000 UNIT/ML 1 ML SYRINGE SUBCUT SCH ×3 (06:11→22:04)
[2018-04-17] MEDS: PROPRANOLOL HCL 40 MG TABLET PO SCH ×3 (06:11→22:12)
[2018-04-17 06:16] LABS: ARTERIAL BLOOD BASE EXCESS 3.9 mmol/L; ARTERIAL BLOOD FIO2 40%; ARTERIAL BLOOD H2CO3 1.35 mmol/L (1.05-1.35); ARTERIAL BLOOD HCO3 28.7 mmol/L (20-24); ARTERIAL BLOOD O2 SATURATION 92.9 % (94-98); ARTERIAL BLOOD PCO2 44.7 mmHg (35-45); ARTERIAL BLOOD PH 7.43 (7.35-7.45); ARTERIAL BLOOD PO2 64.3 mmHg (80-100); ARTERIAL BLOOD TOTAL CO2 30.1 mmol/L (21-25)
--- NOTE | 2018-04-17 06:42 | RADIOLOGY REPORT (SQ) ---
EXAM DESCRIPTION: XR CHEST 1 VIEW COMPLETED DATE/TME: 04/17/2018 06:00 CLINICAL HISTORY: 68 years Female, resp failure COMPARISON: One day prior. NUMBER OF VIEWS/TECHNIQUE: 1/AP FINDINGS: Moderate left lower opacity-effusion. Moderate mixed airspace and interstitial opacities. Mildly enlarged cardiac silhouette. Upper abdominal clips. No pneumothorax. Stable bony thorax. IMPRESSION: No significant change.
[2018-04-17] MEDS: TIOTROPIUM BROMIDE DPI 5 CAP/KIT (18 MCG/CAP) IH SCH (09:00)
[2018-04-17] MEDS: CARVEDILOL 12.5 MG TABLET PO SCH ×2 (09:33→22:13)
[2018-04-17] MEDS: GUAIFENESIN 600 MG TABLET.SA PO SCH ×2 (09:33→22:04)
[2018-04-17] MEDS: DULOXETINE HCL 30 MG CAPSULE.DR PO SCH ×2 (09:34→22:03)
[2018-04-17] MEDS: GABAPENTIN 300 MG CAPSULE PO SCH ×2 (09:34→22:04)
[2018-04-17] MEDS: FERROUS SULFATE 325 MG TABLET PO SCH (09:34)
[2018-04-17] MEDS: IPRATROPIUM BROMIDE 0.06% NASAL SPRAY 15 ML NASL SCH ×3 (09:35→18:07)
[2018-04-17] MEDS: ALPRAZOLAM 0.5 MG TABLET PO PRN ×2 (09:51→22:28)
--- NOTE | 2018-04-17 13:32 | PDOC PROGRESS REPORT ---
Subjective Progress Note for:: 04/17/18 Subjective:: Feeling a little better today Reason For Visit: RESPIRATORY FAILURE Physical Exam Vital Signs: Temp Pulse Resp BP Pulse Ox 36.6 F L 66 23 H 123/70 97 04/17/18 08:00 04/17/18 08:00 04/17/18 09:00 04/17/18 08:45 04/17/18 09:00 Intake & Output 04/16/18 04/17/18 04/18/18 06:59 06:59 06:59 Intake Total 1295 Output Total 840 1490 Balance 455 -1490 Weight 81.1 kg 79.9 kg General appearance: PRESENT: cooperative, disheveled, obese Head exam: PRESENT: atraumatic, normocephalic Eye exam: PRESENT: conjunctiva pale, EOMI. ABSENT: nystagmus, periorbital swelling Mouth exam: PRESENT: dry mucosa, neck supple, tongue midline Neck exam: ABSENT: carotid bruit, JVD, lymphadenopathy, thyromegaly, tracheal deviation, tracheostomy Respiratory exam: PRESENT: decreased breath sounds, prolonged expiratory phas, rales, rhonchi, unlabored, wheezes. ABSENT: retraction, stridor Cardiovascular exam: PRESENT: RRR, +S1, +S2 Pulses: PRESENT: normal radial pulses GI/Abdominal exam: PRESENT: soft. ABSENT: tenderness Extremities exam: PRESENT: pedal edema. ABSENT: calf tenderness, joint swelling Musculoskeletal exam: ABSENT: deformity, dislocation Neurological exam: PRESENT: alert, awake Psychiatric exam: PRESENT: appropriate affect Focused psych exam: PRESENT: restlessness Skin exam: PRESENT: dry, warm Results Laboratory Results: 04/17/18 04:05 04/17/18 04:05 04/17/18 04/17/18 04/17/18 04:05 04:05 06:00 WBC 6.5 RBC 2.97 L Hgb 8.9 L Hct 26.9 L MCV 91 MCH 29.8 MCHC 32.9 RDW 16.9 H Plt Count 237 Seg Neutrophils % 89.4 H Lymphocytes % 7.2 L Monocytes % 3.3 Eosinophils % 0.0 Basophils % 0.1 Absolute Neutrophils 5.8 Absolute Lymphocytes 0.5 Absolute Monocytes 0.2 Absolute Eosinophils 0.0 Absolute Basophils 0.0 Carbonic Acid 1.35 HCO3/H2CO3 Ratio 21:1 ABG pH 7.43 ABG pCO2 44.7 ABG pO2 64.3 L ABG HCO3 28.7 H ABG O2 Saturation 92.9 L ABG Base Excess 3.9 FiO2 40% Sodium 141.3 Potassium 4.4 Chloride 104 Carbon Dioxide 29 Anion Gap 8 BUN 24 H Creatinine 0.59 Est GFR ( Amer) > 60 Est GFR (Non-Af Amer) > 60 Glucose 125 H Calcium 8.8 Magnesium 2.2 Total Bilirubin 0.3 AST 23 ALT 25 Alkaline Phosphatase 47 Total Protein 5.3 L Albumin 2.9 L 04/15/18 11:50 Catheterized Urine Urine Culture - Final NO GROWTH 2 DAYS Impressions: Chest CT 04/15/18 09:41 IMPRESSION: 1. Chronic changes of pulmonary fibrosis. 2. Previously noted faint ground-glass infiltrates have resolved. 3. Trace left pleural effusion, new. Chest X-Ray 04/17/18 06:00 IMPRESSION: No significant change. Assessment & Plan - Diagnosis (1) Acute respiratory failure Qualifiers: Respiratory failure complication: unspecified whether with hypoxia or hypercapnia Qualified Code(s): J96.00 - Acute respiratory failure, unspecified whether with hypoxia or hypercapnia Is this a current diagnosis for this admission?: Yes Plan: Requiring BiPAP Minimally improved (2) GERD (gastroesophageal reflux disease) Is this a current diagnosis for this admission?: Yes Plan: Long-standing chronic large hernia and gastric content in thoracic cavity (3) Interstitial pulmonary fibrosis Is this a current diagnosis for this admission?: Yes Plan: Previously diagnosed by banquet food server in [place] (4) Pleural effusion Is this a current diagnosis for this admission?: Yes Plan: Thoracentesis - Time Total Critical Time (Minutes): 45
--- NOTE | 2018-04-17 13:34 | PDOC PROGRESS REPORT ---
Subjective Progress Note for:: 04/16/18 Subjective:: Unchanged Reason For Visit: RESPIRATORY FAILURE Physical Exam Vital Signs: Temp Pulse Resp BP Pulse Ox 97.3 F 63 18 156/97 H 100 04/16/18 08:00 04/16/18 08:00 04/16/18 08:00 04/16/18 08:00 04/16/18 08:00 Intake & Output 04/15/18 04/16/18 04/17/18 06:59 06:59 06:59 Intake Total 1021 1245 Output Total 475 840 125 Balance 546 405 -125 Weight 81.1 kg 81.1 kg General appearance: PRESENT: cooperative, disheveled, mild distress, obese Head exam: PRESENT: atraumatic, normocephalic Eye exam: PRESENT: conjunctiva pale, EOMI. ABSENT: nystagmus, periorbital swelling Mouth exam: PRESENT: dry mucosa, neck supple, tongue midline Neck exam: ABSENT: carotid bruit, JVD, lymphadenopathy, thyromegaly, tracheal deviation, tracheostomy Respiratory exam: PRESENT: decreased breath sounds, prolonged expiratory phas, rales, rhonchi, wheezes. ABSENT: retraction, stridor Cardiovascular exam: PRESENT: RRR, +S1, +S2 Pulses: PRESENT: normal radial pulses GI/Abdominal exam: PRESENT: soft. ABSENT: tenderness Extremities exam: ABSENT: calf tenderness, clubbing, joint swelling Musculoskeletal exam: ABSENT: deformity, dislocation Neurological exam: PRESENT: alert, awake Psychiatric exam: PRESENT: appropriate affect Skin exam: PRESENT: dry, warm Results Laboratory Results: 04/16/18 03:33 04/16/18 03:33 04/15/18 04/15/18 04/16/18 11:50 16:20 03:33 WBC 10.5 RBC 3.33 L Hgb 9.9 L Hct 30.6 L MCV 92 MCH 29.8 MCHC 32.4 RDW 16.9 H Plt Count 290 Seg Neutrophils % 91.4 H Lymphocytes % 5.7 L Monocytes % 2.8 L Eosinophils % 0.0 Basophils % 0.1 Absolute Neutrophils 9.6 H Absolute Lymphocytes 0.6 Absolute Monocytes 0.3 Absolute Eosinophils 0.0 Absolute Basophils 0.0 Carbonic Acid HCO3/H2CO3 Ratio ABG pH ABG pCO2 ABG pO2 ABG HCO3 ABG O2 Saturation ABG Base Excess FiO2 Sodium 143.9 Potassium 5.2 H Chloride 106 Carbon Dioxide 30 Anion Gap 8 BUN 31 H Creatinine 0.67 Est GFR ( Amer) > 60 Est GFR (Non-Af Amer) > 60 Glucose 169 H Calcium 9.3 Magnesium Total Bilirubin AST ALT Alkaline Phosphatase Total Protein Albumin Urine Color YELLOW Urine Appearance SLIGHTLY-CLOUDY Urine pH 5.0 Ur Specific [place] 1.029 Urine Protein 30 H Urine Glucose (UA) NEGATIVE Urine Ketones NEGATIVE Urine Blood NEGATIVE Urine Nitrite NEGATIVE Ur Leukocyte Esterase NEGATIVE Urine WBC (Auto) 2 Urine RBC (Auto) 1 04/16/18 04/16/18 03:33 05:35 WBC RBC Hgb Hct MCV MCH MCHC RDW Plt Count Seg Neutrophils % Lymphocytes % Monocytes % Eosinophils % Basophils % Absolute Neutrophils Absolute Lymphocytes Absolute Monocytes Absolute Eosinophils Absolute Basophils Carbonic Acid 1.38 H HCO3/H2CO3 Ratio 21:1 ABG pH 7.42 ABG pCO2 46.0 H ABG pO2 110.9 H ABG HCO3 29.4 H ABG O2 Saturation 98.1 H ABG Base Excess 4.4 FiO2 45% Sodium 142.9 Potassium 4.7 Chloride 106 Carbon Dioxide 27 Anion Gap 10 BUN 28 H Creatinine 0.61 Est GFR ( Amer) > 60 Est GFR (Non-Af Amer) > 60 Glucose 139 H Calcium 9.0 Magnesium 2.1 Total Bilirubin 0.3 AST 28 ALT 21 Alkaline Phosphatase 53 Total Protein 5.8 L Albumin 3.1 L Urine Color Urine Appearance Urine pH Ur Specific [place] Urine Protein Urine Glucose (UA) Urine Ketones Urine Blood Urine Nitrite Ur Leukocyte Esterase Urine WBC (Auto) Urine RBC (Auto) Impressions: Chest CT 04/15/18 09:41 IMPRESSION: 1. Chronic changes of pulmonary fibrosis. 2. Previously noted faint ground-glass infiltrates have resolved. 3. Trace left pleural effusion, new. Chest X-Ray 04/16/18 06:00 IMPRESSION: No significant change. Assessment & Plan - Diagnosis (1) Acute respiratory failure Qualifiers: Respiratory failure complication: unspecified whether with hypoxia or hypercapnia Qualified Code(s): J96.00 - Acute respiratory failure, unspecified whether with hypoxia or hypercapnia Is this a current diagnosis for this admission?: Yes Plan: Unchanged (2) GERD (gastroesophageal reflux disease) Is this a current diagnosis for this admission?: Yes Plan: Long-standing chronic large hernia and gastric content in thoracic cavity (3) Interstitial pulmonary fibrosis Is this a current diagnosis for this admission?: Yes Plan: Previously diagnosed by crisis therapist in [place] (4) Pleural effusion Is this a current diagnosis for this admission?: Yes Plan: Thoracentesis - Time Total Critical Time (Minutes): 40
--- NOTE | 2018-04-17 19:32 | PDOC PROGRESS REPORT ---
Subjective Progress Note for:: 04/17/18 Subjective:: JORGE LUIS GALEANO is a 68 year old female past medical history of possible restrictive lung disease due to pulmonary fibrosis and cardiomyopathy both pending final diagnosis. Patient presented to ED complaining of worsening shortness of breath associated with mild nonproductive cough. As per patient she was sent to a schedule announcer for possible cardiomyopathy however she has not had a definitive diagnosis, then she was sent to a pulmonology for possible pulmonary fibrosis and she has a pending lung biopsy. She has been taking prednisone 60 mg for the last 30 days and she ran out about 2 days ago. She denies any fever, chills, nausea, vomiting, diarrhea, constipation or any urinary symptoms. Last night she noticed worsening shortness of breath and came to ED for further evaluation. In ED she was seen to be in severe respiratory distress and was placed on BiPAP. Also found to be hypotensive. 02/13/2018. No acute events overnight. Alert oriented very pleasant and cooperative with physical examination. She is on nasal cannula in mild respiratory distress cannot speak in full sentences but she is stating that she is feeling much better than yesterday. Denies any fever, chills, nausea, vomiting, diarrhea, constipation or any urinary symptoms. 02/14/2018. No acute events overnight. Alert oriented very pleasant and cooperative physical examination. She says she is feeling better but still having dyspnea on exertion. She denies any fever, chills, nausea, vomiting, diarrhea, constipation. 04/17/2018. No acute events overnight. On my encounter patient is comfortably resting in her bed with high flow oxygen does not seem to be mild respiratory distress. She is feeling much better and she had a good night sleep last night. She is denying any fever, no pain, chest pain, diarrhea. Reason For Visit: RESPIRATORY FAILURE Physical Exam Vital Signs: Temp Pulse Resp BP Pulse Ox 37.2 F L 67 22 H 123/68 97 04/17/18 14:00 04/17/18 16:40 04/17/18 16:40 04/17/18 16:05 04/17/18 16:40 Intake & Output 04/16/18 04/17/18 04/18/18 06:59 06:59 06:59 Intake Total 1295 815 Output Total 840 1490 850 Balance 455 -1490 -35 Weight 81.1 kg 79.9 kg General appearance: PRESENT: no acute distress, mild distress, well-developed, well-nourished Respiratory exam: PRESENT: clear to auscultation trinh, crackles - Bowel sounds heard in left posterior lung field.. ABSENT: rales, rhonchi, wheezes GI/Abdominal exam: PRESENT: normal bowel sounds, soft. ABSENT: distended, guarding, mass, organolmegaly, rebound, tenderness Extremities exam: PRESENT: full ROM. ABSENT: calf tenderness, clubbing, pedal edema Neurological exam: PRESENT: alert, awake, oriented to person, oriented to place , oriented to time, oriented to situation, CN II-XII grossly intact. ABSENT: motor sensory deficit Results Laboratory Results: 04/17/18 04:05 04/17/18 04:05 04/17/18 04/17/18 04/17/18 04:05 04:05 06:00 WBC 6.5 RBC 2.97 L Hgb 8.9 L Hct 26.9 L MCV 91 MCH 29.8 MCHC 32.9 RDW 16.9 H Plt Count 237 Seg Neutrophils % 89.4 H Lymphocytes % 7.2 L Monocytes % 3.3 Eosinophils % 0.0 Basophils % 0.1 Absolute Neutrophils 5.8 Absolute Lymphocytes 0.5 Absolute Monocytes 0.2 Absolute Eosinophils 0.0 Absolute Basophils 0.0 Carbonic Acid 1.35 HCO3/H2CO3 Ratio 21:1 ABG pH 7.43 ABG pCO2 44.7 ABG pO2 64.3 L ABG HCO3 28.7 H ABG O2 Saturation 92.9 L ABG Base Excess 3.9 FiO2 40% Sodium 141.3 Potassium 4.4 Chloride 104 Carbon Dioxide 29 Anion Gap 8 BUN 24 H Creatinine 0.59 Est GFR ( Amer) > 60 Est GFR (Non-Af Amer) > 60 Glucose 125 H Calcium 8.8 Magnesium 2.2 Total Bilirubin 0.3 AST 23 ALT 25 Alkaline Phosphatase 47 Total Protein 5.3 L Albumin 2.9 L 04/15/18 11:50 Catheterized Urine Urine Culture - Final NO GROWTH 2 DAYS Impressions: Chest CT 04/15/18 09:41 IMPRESSION: 1. Chronic changes of pulmonary fibrosis. 2. Previously noted faint ground-glass infiltrates have resolved. 3. Trace left pleural effusion, new. Chest X-Ray 04/17/18 06:00 IMPRESSION: No significant change. Assessment & Plan - Diagnosis (1) Acute respiratory failure Qualifiers: Respiratory failure complication: unspecified whether with hypoxia or hypercapnia Qualified Code(s): J96.00 - Acute respiratory failure, unspecified whether with hypoxia or hypercapnia Is this a current diagnosis for this admission?: Yes Plan: Mild improvement symptomatically. ABG still shows hypoxia. Acute respiratory failure secondary to infective bronchitis superimposed on underlying pulmonary fibrosis. ABG on 04/14/2018 negative for any hypoxia or hypercarbia. ABG on 04/15/2018 normal pH with mild hypoxia. ABG on 04/16/2018 pH 7.46, PO2 110.9 ABG on 04/17/2018 pH 7.43, PO2 69. Continue BiPAP, supplemental oxygen, DuoNeb, IV steroids, day 3 of IV ceftriaxone. Pulmonary on board. (2) Acute bronchitis Is this a current diagnosis for this admission?: Yes Plan: Leukocytosis and cough has improved. Likely infectious. She has been on empiric antibiotics with the last 3 days. Follow-up sputum and blood cultures. (3) Interstitial pulmonary fibrosis Is this a current diagnosis for this admission?: Yes Plan: Will start on high dose steroids. Will get pulmonary records. Pulmonology consulted. Sees personnel specialist as outpatient. (4) Pulmonary hypertension Is this a current diagnosis for this admission?: Yes Plan: Due to underlying pulmonary fibrosis. Pulmonary. Continue monitoring vitals continue supplemental oxygen. (5) Cardiomyopathy Is this a current diagnosis for this admission?: Yes Plan: IHSS was ruled out by a repeat echocardiogram. Echo on 04/14/2018 normal left ventricle cannot exclude asymmetric septal hypertrophy and possibly LVOT gradient not optimal. (6) Insomnia Is this a current diagnosis for this admission?: No Plan: Restarted on Ambien. (7) Depression Is this a current diagnosis for this admission?: Yes Plan: Restart home meds. (8) Hiatal hernia with GERD Is this a current diagnosis for this admission?: Yes Plan: Continue PPIs. Surgery was consulted and the did not deemed patient to be fit for any intervention at this time underlying comorbidities..
[2018-04-17] MEDS: CEFTRIAXONE SODIUM 1,000 MG in DEXTROSE 5%-WATER 50 ML IV SCH (22:04)
[2018-04-18] MEDS: ZOLPIDEM TARTRATE 5 MG TABLET PO PRN ×2 (00:15→21:50)
[2018-04-18] MEDS: METHYLPREDNISOLONE INJ 125 MG/2 ML SDV IV SCH ×3 (01:45→17:41)
[2018-04-18 05:11] LABS: ABSOLUTE LYMPHOCYTES (AUTO) 0.4 10^3/uL (0.5-4.7); ABSOLUTE MONOCYTES (AUTO) 0.1 10^3/uL (0.1-1.4); BASOPHILS % (AUTO) 0.2 % (0-2); HEMATOCRIT 27.5 % (36.0-47.0); HEMOGLOBIN 9.1 g/dL (12.0-15.5); LYMPHOCYTES % (AUTO) 6.4 % (13-45); MEAN CORPUSCULAR HEMOGLOBIN 30.3 pg (27.0-33.4); MEAN CORPUSCULAR HGB CONC 33.3 g/dL (32.0-36.0); MEAN CORPUSCULAR VOLUME 91 fl (80-97); MONOCYTES % (AUTO) 1.9 % (3-13); PLATELET COUNT 234 10^3/uL (150-450); RED BLOOD COUNT 3.02 10^6/uL (3.72-5.28); RED CELL DISTRIBUTION WIDTH 16.3 % (11.5-14.0); SEGMENTED NEUTROPHILS % (AUTO) 91.5 % (42-78); TOTAL CELLS COUNTED % (AUTO) 100 %; WHITE BLOOD COUNT 6.6 10^3/uL (4.0-10.5)
[2018-04-18 05:40] LABS: ALANINE AMINOTRANSFERASE 27 U/L (9-52); ALBUMIN 3.2 g/dL (3.5-5.0); ALKALINE PHOSPHATASE 47 U/L (38-126); ANION GAP 6 (5-19); ASPARTATE AMINO TRANSFERASE 25 U/L (14-36); BILIRUBIN,DIRECT 0.2 mg/dL (0.0-0.4); BILIRUBIN,TOTAL 0.4 mg/dL (0.2-1.3); BLOOD UREA NITROGEN 22 mg/dL (7-20); CALCIUM 9.1 mg/dL (8.4-10.2); CARBON DIOXIDE 36 mmol/L (22-30); CHLORIDE 99 mmol/L (98-107); GLUCOSE 141 mg/dL (75-110); POTASSIUM 4.9 mmol/L (3.6-5.0); SODIUM 141.1 mmol/L (137-145); TOTAL PROTEIN 5.9 g/dL (6.3-8.2)
[2018-04-18] MEDS: PROPRANOLOL HCL 40 MG TABLET PO SCH ×3 (05:50→21:55)
[2018-04-18] MEDS: HEPARIN SOD (PORCINE) 5,000 UNIT/ML 1 ML SYRINGE SUBCUT SCH ×3 (05:50→21:55)
[2018-04-18] MEDS: LANSOPRAZOLE 30 MG TAB.RAP.DR PO SCH ×2 (05:50→17:42)
[2018-04-18 06:15] LABS: ARTERIAL BLOOD HCO3 33.2 mmol/L (20-24); ARTERIAL BLOOD O2 SATURATION 97.3 % (94-98); ARTERIAL BLOOD PCO2 49.7 mmHg (35-45); ARTERIAL BLOOD PH 7.44 (7.35-7.45); ARTERIAL BLOOD PO2 93.6 mmHg (80-100); ARTERIAL BLOOD TOTAL CO2 34.7 mmol/L (21-25)
[2018-04-18 06:17] LABS: ARTERIAL BLOOD FIO2 50%
--- NOTE | 2018-04-18 09:01 | RADIOLOGY REPORT (SQ) ---
EXAM DESCRIPTION: CHEST SINGLE VIEW COMPLETED DATE/TIME: 04/18/2018 8:36 am REASON FOR STUDY: resp failure COMPARISON: 04/17/2018 EXAM PARAMETERS: NUMBER OF VIEWS: One view. TECHNIQUE: Single frontal radiographic view of the chest acquired. RADIATION DOSE: NA LIMITATIONS: None. FINDINGS: LUNGS AND PLEURA: There is persistent bilateral airspace disease. Aeration is minimally i mproved especially in the left base from yesterday. No other interval change. MEDIASTINUM AND HILAR STRUCTURES: No masses. Contour normal. HEART AND VASCULAR STRUCTURES: Stable in appearance. BONES: No acute findings. HARDWARE: None in the chest. OTHER: No other significant finding. IMPRESSION: Mild improvement aeration in the left base. No other interval change. TECHNICAL DOCUMENTATION: JOB ID: [id number] [employer]- All Rights Reserved Reading location - IP/workstation name: [email or web address]
[2018-04-18] MEDS: FERROUS SULFATE 325 MG TABLET PO SCH (11:17)
[2018-04-18] MEDS: IPRATROPIUM BROMIDE 0.06% NASAL SPRAY 15 ML NASL SCH ×3 (11:17→17:43)
[2018-04-18] MEDS: CARVEDILOL 12.5 MG TABLET PO SCH ×2 (11:17→21:54)
[2018-04-18] MEDS: TIOTROPIUM BROMIDE DPI 5 CAP/KIT (18 MCG/CAP) IH SCH (11:17)
[2018-04-18] MEDS: GABAPENTIN 300 MG CAPSULE PO SCH ×2 (11:17→21:54)
[2018-04-18] MEDS: GUAIFENESIN 600 MG TABLET.SA PO SCH ×2 (11:17→21:55)
[2018-04-18] MEDS: DULOXETINE HCL 30 MG CAPSULE.DR PO SCH ×2 (11:17→21:54)
[2018-04-18] MEDS: ALPRAZOLAM 0.5 MG TABLET PO PRN ×2 (11:21→21:55)
[2018-04-18] MEDS: ACETAMINOPHEN 325 MG TABLET PO PRN (18:49)
[2018-04-18] MEDS: CEFTRIAXONE SODIUM 1,000 MG in DEXTROSE 5%-WATER 50 ML IV SCH (21:59)
[2018-04-19] MEDS: METHYLPREDNISOLONE INJ 125 MG/2 ML SDV IV SCH ×3 (01:49→17:59)
[2018-04-19 05:53] LABS: ABSOLUTE LYMPHOCYTES (AUTO) 0.3 10^3/uL (0.5-4.7); ABSOLUTE MONOCYTES (AUTO) 0.1 10^3/uL (0.1-1.4); ABSOLUTE NEUT (AUTO) 4.5 10^3/uL (1.7-8.2); BASOPHILS % (AUTO) 0.2 % (0-2); HEMATOCRIT 28.8 % (36.0-47.0); HEMOGLOBIN 9.4 g/dL (12.0-15.5); LYMPHOCYTES % (AUTO) 7.1 % (13-45); MEAN CORPUSCULAR HEMOGLOBIN 29.5 pg (27.0-33.4); MEAN CORPUSCULAR HGB CONC 32.7 g/dL (32.0-36.0); MEAN CORPUSCULAR VOLUME 90 fl (80-97); MONOCYTES % (AUTO) 1.3 % (3-13); PLATELET COUNT 245 10^3/uL (150-450); RED BLOOD COUNT 3.19 10^6/uL (3.72-5.28); SEGMENTED NEUTROPHILS % (AUTO) 91.4 % (42-78); TOTAL CELLS COUNTED % (AUTO) 100 %; WHITE BLOOD COUNT 4.9 10^3/uL (4.0-10.5)
[2018-04-19] MEDS: HEPARIN SOD (PORCINE) 5,000 UNIT/ML 1 ML SYRINGE SUBCUT SCH ×3 (06:04→21:37)
[2018-04-19] MEDS: LANSOPRAZOLE 30 MG TAB.RAP.DR PO SCH ×2 (06:04→17:59)
[2018-04-19] MEDS: PROPRANOLOL HCL 40 MG TABLET PO SCH ×3 (06:04→22:00)
[2018-04-19 06:08] LABS: ALANINE AMINOTRANSFERASE 27 U/L (9-52); ALBUMIN 3.2 g/dL (3.5-5.0); ALKALINE PHOSPHATASE 46 U/L (38-126); ANION GAP 8 (5-19); ASPARTATE AMINO TRANSFERASE 20 U/L (14-36); BILIRUBIN,DIRECT 0.2 mg/dL (0.0-0.4); BILIRUBIN,TOTAL 0.2 mg/dL (0.2-1.3); BLOOD UREA NITROGEN 23 mg/dL (7-20); CALCIUM 8.8 mg/dL (8.4-10.2); CARBON DIOXIDE 32 mmol/L (22-30); CHLORIDE 100 mmol/L (98-107); GLUCOSE 152 mg/dL (75-110); POTASSIUM 4.3 mmol/L (3.6-5.0); SODIUM 139.9 mmol/L (137-145); TOTAL PROTEIN 5.8 g/dL (6.3-8.2)
[2018-04-19 09:07] LABS: ARTERIAL BLOOD BASE EXCESS 8.3 mmol/L; ARTERIAL BLOOD H2CO3 1.38 mmol/L (1.05-1.35); ARTERIAL BLOOD HCO3 32.9 mmol/L (20-24); ARTERIAL BLOOD O2 SATURATION 96.8 % (94-98); ARTERIAL BLOOD PCO2 45.9 mmHg (35-45); ARTERIAL BLOOD PH 7.47 (7.35-7.45); ARTERIAL BLOOD PO2 84.5 mmHg (80-100); ARTERIAL BLOOD TOTAL CO2 34.3 mmol/L (21-25)
[2018-04-19 09:09] LABS: ARTERIAL BLOOD FIO2 50%
[2018-04-19] MEDS: GUAIFENESIN 600 MG TABLET.SA PO SCH ×2 (09:18→21:30)
[2018-04-19] MEDS: FERROUS SULFATE 325 MG TABLET PO SCH (09:18)
[2018-04-19] MEDS: CARVEDILOL 12.5 MG TABLET PO SCH ×2 (09:18→21:30)
[2018-04-19] MEDS: GABAPENTIN 300 MG CAPSULE PO SCH ×2 (09:18→21:30)
[2018-04-19] MEDS: DULOXETINE HCL 30 MG CAPSULE.DR PO SCH ×2 (09:18→21:30)
[2018-04-19] MEDS: TIOTROPIUM BROMIDE DPI 5 CAP/KIT (18 MCG/CAP) IH SCH (09:19)
[2018-04-19] MEDS: IPRATROPIUM BROMIDE 0.06% NASAL SPRAY 15 ML NASL SCH ×3 (09:19→17:56)
--- NOTE | 2018-04-19 09:20 | PDOC PROGRESS REPORT ---
Subjective Progress Note for:: 04/19/18 Subjective:: JORGE LUIS GALEANO is a 68 year old female past medical history of possible restrictive lung disease due to pulmonary fibrosis and cardiomyopathy both pending final diagnosis. Patient presented to ED complaining of worsening shortness of breath associated with mild nonproductive cough. As per patient she was sent to a devil tender for possible cardiomyopathy however she has not had a definitive diagnosis, then she was sent to a pulmonology for possible pulmonary fibrosis and she has a pending lung biopsy. She has been taking prednisone 60 mg for the last 30 days and she ran out about 2 days ago. She denies any fever, chills, nausea, vomiting, diarrhea, constipation or any urinary symptoms. Last night she noticed worsening shortness of breath and came to ED for further evaluation. In ED she was seen to be in severe respiratory distress and was placed on BiPAP. Also found to be hypotensive. 02/13/2018. No acute events overnight. Alert oriented very pleasant and cooperative with physical examination. She is on nasal cannula in mild respiratory distress cannot speak in full sentences but she is stating that she is feeling much better than yesterday. Denies any fever, chills, nausea, vomiting, diarrhea, constipation or any urinary symptoms. 02/14/2018. No acute events overnight. Alert oriented very pleasant and cooperative physical examination. She says she is feeling better but still having dyspnea on exertion. She denies any fever, chills, nausea, vomiting, diarrhea, constipation. 04/17/2018. No acute events overnight. On my encounter patient is comfortably resting in her bed with high flow oxygen does not seem to be mild respiratory distress. She is feeling much better and she had a good night sleep last night. She is denying any fever, no pain, chest pain, diarrhea. 04/18/2018. No acute events overnight. On my encounter patient is comfortably sitting in her bed in a reclined position. Patient states that she did use BiPAP at night but later she wanted to be switched to high flow due to BiPAP making her uncomfortable. She has been saturating in the high 90s on high flow and she is stating that she was able to change her position without getting short of breath overnight. Still has a Verduzco in and has not ambulated due to dyspnea on exertion. Currently blood pressure are within normal limits as well as temperature and respiratory rate. She is denying any fever, cough, nausea, vomiting, chest pain , diarrhea, constipation or any urinary symptoms. Will order PT for ambulation. We will continue current treatments and plan is to wean her off of oxygen as much as possible to send her home on O2. 04/19/2018. No acute events overnight patient has been using high flow oxygen all night and she is saying she slept very well and she was able to change positions without any dyspnea. On my encounter she is comfortably sitting in her bed with high flow nasal cannula and having her breakfast. Yesterday she was able to ambulate a little bit without no problems and she is having normal bladder function however she has not had a bowel movement for the last 3 days but she says she does not feel like she is constipated is because of that she has not been eating very well. She denies any fever, chest pain, nausea, vomiting, diarrhea or any urinary symptoms. Yesterday she received physical therapy under the recommending inpatient rehab.She had been normotensive for the last 24 hours except for 7:40 AM a blood pressure 150/79, she has been afebrile, pulse rate of 5660, high flow nasal cannula on FiO2 of 50%, saturating in the 90s, CBC CMP within normal limits except for chronic anemia. Plan is to transfer patient to inpatient rehab where he could hopefully be stabilized and possibly see a GI as outpatient to be evaluated for possible surgery of hiatal hernia. 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 Reason For Visit: RESPIRATORY FAILURE Physical Exam Vital Signs: Temp Pulse Resp BP Pulse Ox 97.9 F 62 16 150/79 H 92 04/19/18 07:40 04/19/18 07:40 04/19/18 08:30 04/19/18 07:40 04/19/18 08:30 Intake & Output 04/18/18 04/19/18 04/20/18 06:59 06:59 06:59 Intake Total 865 641 Output Total 1025 1600 Balance -160 -959 Weight 81 kg 79.8 kg General appearance: PRESENT: no acute distress Head exam: PRESENT: atraumatic Respiratory exam: PRESENT: clear to auscultation trinh, prolonged expiratory phas. ABSENT: rales, rhonchi, wheezes Cardiovascular exam: PRESENT: RRR. ABSENT: diastolic murmur, rubs, systolic murmur GI/Abdominal exam: PRESENT: normal bowel sounds, soft. ABSENT: distended, guarding, mass, organolmegaly, rebound, tenderness Neurological exam: PRESENT: alert, awake, oriented to person, oriented to place , oriented to time, oriented to situation, CN II-XII grossly intact. ABSENT: motor sensory deficit Results Laboratory Results: 04/19/18 05:38 04/19/18 05:38 04/19/18 04/19/18 04/19/18 05:38 05:38 08:55 WBC 4.9 RBC 3.19 L Hgb 9.4 L Hct 28.8 L MCV 90 MCH 29.5 MCHC 32.7 RDW 16.0 H Plt Count 245 Seg Neutrophils % 91.4 H Lymphocytes % 7.1 L Monocytes % 1.3 L Eosinophils % 0.0 Basophils % 0.2 Absolute Neutrophils 4.5 Absolute Lymphocytes 0.3 L Absolute Monocytes 0.1 Absolute Eosinophils 0.0 Absolute Basophils 0.0 Carbonic Acid 1.38 H HCO3/H2CO3 Ratio 23:1 ABG pH 7.47 H ABG pCO2 45.9 H ABG pO2 84.5 ABG HCO3 32.9 H ABG O2 Saturation 96.8 ABG Base Excess 8.3 FiO2 50% Sodium 139.9 Potassium 4.3 Chloride 100 Carbon Dioxide 32 H Anion Gap 8 BUN 23 H Creatinine 0.52 Est GFR ( Amer) > 60 Est GFR (Non-Af Amer) > 60 Glucose 152 H Calcium 8.8 Total Bilirubin 0.2 AST 20 ALT 27 Alkaline Phosphatase 46 Total Protein 5.8 L Albumin 3.2 L Impressions: Chest CT 04/15/18 09:41 IMPRESSION: 1. Chronic changes of pulmonary fibrosis. 2. Previously noted faint ground-glass infiltrates have resolved. 3. Trace left pleural effusion, new. Chest X-Ray 04/18/18 06:00 IMPRESSION: Mild improvement aeration in the left base. No other interval change. Assessment & Plan - Diagnosis (1) Acute respiratory failure Qualifiers: Respiratory failure complication: unspecified whether with hypoxia or hypercapnia Qualified Code(s): J96.00 - Acute respiratory failure, unspecified whether with hypoxia or hypercapnia Is this a current diagnosis for this admission?: Yes Plan: Improving. ABG improving. Acute respiratory failure secondary to infective bronchitis superimposed on underlying pulmonary fibrosis. ABG on 04/14/2018 negative for any hypoxia or hypercarbia. ABG on 04/15/2018 normal pH with mild hypoxia. ABG on 04/16/2018 pH 7.46, PO2 110.9 ABG on 04/17/2018 pH 7.43, PO2 69. ABG on 04/18/2018 pH of 7.47, PO2 96. On 40% oxygen high flow. ABG on 04/19/2018 pH 45.9, SPO2 84.5 On 50% oxygen high flow. Continue BiPAP, supplemental oxygen, DuoNeb, IV steroids. Day 5/5 IV antibiotics. DC antibiotics. Cultures negative. Pulmonary on board. Plan is to transfer patient to either SNF or LTAC. (2) Acute bronchitis Is this a current diagnosis for this admission?: Yes Plan: Leukocytosis and cough has improved. Likely infectious. Day 5/5 IV antibiotics. DC antibiotics. Cultures negative. (3) Interstitial pulmonary fibrosis Is this a current diagnosis for this admission?: Yes Plan: Will start on high dose steroids. Will get pulmonary records. Pulmonology consulted. [facility]es [facility] as [facility]. (4) Pulmonary hypertension Is this a current diagnosis for this admission?: Yes Plan: Due to underlying pulmonary fibrosis. Pulmonary. Continue monitoring vitals continue supplemental oxygen. (5) Cardiomyopathy Is this a current diagnosis for this admission?: Yes Plan: IHSS was ruled out by a repeat echocardiogram. Echo on 04/14/2018 normal left ventricle cannot exclude asymmetric septal hypertrophy and possibly LVOT gradient not optimal. (6) Insomnia Is this a current diagnosis for this admission?: No Plan: Restarted on Ambien. (7) Depression Is this a current diagnosis for this admission?: Yes Plan: Restart home meds. (8) Hiatal hernia with GERD Is this a current diagnosis for this admission?: Yes Plan: Continue PPIs. Surgery was consulted. Patient is not a surgical candidate at this point. Outpatient surgery follow-up
[2018-04-19] MEDS: ALPRAZOLAM 0.5 MG TABLET PO PRN ×2 (09:28→21:31)
[2018-04-19] MEDS: PROMETHAZINE HCL 25 MG TABLET PO PRN (21:31)
[2018-04-19] MEDS: ACETAMINOPHEN 325 MG TABLET PO PRN (21:31)
[2018-04-19] MEDS: CEFTRIAXONE SODIUM 1,000 MG in DEXTROSE 5%-WATER 50 ML IV SCH (21:38)
[2018-04-20] MEDS: METHYLPREDNISOLONE INJ 125 MG/2 ML SDV IV SCH ×3 (01:30→18:02)
[2018-04-20] MEDS: HEPARIN SOD (PORCINE) 5,000 UNIT/ML 1 ML SYRINGE SUBCUT SCH ×3 (05:47→22:13)
[2018-04-20] MEDS: PROPRANOLOL HCL 40 MG TABLET PO SCH ×3 (05:47→22:13)
[2018-04-20] MEDS: LANSOPRAZOLE 30 MG TAB.RAP.DR PO SCH ×2 (05:47→18:02)
[2018-04-20] MEDS: ALPRAZOLAM 0.5 MG TABLET PO PRN ×2 (09:15→22:15)
[2018-04-20] MEDS: DULOXETINE HCL 30 MG CAPSULE.DR PO SCH ×2 (09:15→22:11)
[2018-04-20] MEDS: CARVEDILOL 12.5 MG TABLET PO SCH ×2 (09:15→22:12)
[2018-04-20] MEDS: GUAIFENESIN 600 MG TABLET.SA PO SCH ×2 (09:15→22:14)
[2018-04-20] MEDS: FERROUS SULFATE 325 MG TABLET PO SCH (09:15)
[2018-04-20] MEDS: GABAPENTIN 300 MG CAPSULE PO SCH ×2 (09:15→22:14)
[2018-04-20] MEDS: TIOTROPIUM BROMIDE DPI 5 CAP/KIT (18 MCG/CAP) IH SCH (09:16)
[2018-04-20] MEDS: IPRATROPIUM BROMIDE 0.06% NASAL SPRAY 15 ML NASL SCH ×3 (09:16→18:02)
--- NOTE | 2018-04-20 11:08 | PDOC PROGRESS REPORT ---
Subjective Progress Note for:: 04/20/18 Subjective:: JORGE LUIS GALEANO is a 68 year old female past medical history of possible restrictive lung disease due to pulmonary fibrosis and cardiomyopathy both pending final diagnosis. Patient presented to ED complaining of worsening shortness of breath associated with mild nonproductive cough. As per patient she was sent to a capacitor tester for possible cardiomyopathy however she has not had a definitive diagnosis, then she was sent to a pulmonology for possible pulmonary fibrosis and she has a pending lung biopsy. She has been taking prednisone 60 mg for the last 30 days and she ran out about 2 days ago. She denies any fever, chills, nausea, vomiting, diarrhea, constipation or any urinary symptoms. Last night she noticed worsening shortness of breath and came to ED for further evaluation. In ED she was seen to be in severe respiratory distress and was placed on BiPAP. Also found to be hypotensive. 02/13/2018. No acute events overnight. Alert oriented very pleasant and cooperative with physical examination. She is on nasal cannula in mild respiratory distress cannot speak in full sentences but she is stating that she is feeling much better than yesterday. Denies any fever, chills, nausea, vomiting, diarrhea, constipation or any urinary symptoms. 02/14/2018. No acute events overnight. Alert oriented very pleasant and cooperative physical examination. She says she is feeling better but still having dyspnea on exertion. She denies any fever, chills, nausea, vomiting, diarrhea, constipation. 04/17/2018. No acute events overnight. On my encounter patient is comfortably resting in her bed with high flow oxygen does not seem to be mild respiratory distress. She is feeling much better and she had a good night sleep last night. She is denying any fever, no pain, chest pain, diarrhea. 04/18/2018. No acute events overnight. On my encounter patient is comfortably sitting in her bed in a reclined position. Patient states that she did use BiPAP at night but later she wanted to be switched to high flow due to BiPAP making her uncomfortable. She has been saturating in the high 90s on high flow and she is stating that she was able to change her position without getting short of breath overnight. Still has a Verduzco in and has not ambulated due to dyspnea on exertion. Currently blood pressure are within normal limits as well as temperature and respiratory rate. She is denying any fever, cough, nausea, vomiting, chest pain , diarrhea, constipation or any urinary symptoms. Will order PT for ambulation. We will continue current treatments and plan is to wean her off of oxygen as much as possible to send her home on O2. 04/19/2018. No acute events overnight patient has been using high flow oxygen all night and she is saying she slept very well and she was able to change positions without any dyspnea. On my encounter she is comfortably sitting in her bed with high flow nasal cannula and having her breakfast. Yesterday she was able to ambulate a little bit without no problems and she is having normal bladder function however she has not had a bowel movement for the last 3 days but she says she does not feel like she is constipated is because of that she has not been eating very well. She denies any fever, chest pain, nausea, vomiting, diarrhea or any urinary symptoms. Yesterday she received physical therapy under the recommending inpatient rehab.She had been normotensive for the last 24 hours except for 7:40 AM a blood pressure 150/79, she has been afebrile, pulse rate of 5660, high flow nasal cannula on FiO2 of 50%, saturating in the 90s, CBC CMP within normal limits except for chronic anemia. Plan is to transfer patient to inpatient rehab where he could hopefully be stabilized and possibly see a GI as outpatient to be evaluated for possible surgery of hiatal hernia. 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 04/20/2018. No acute events overnight. Patient has been using high flow nasal cannula without any problem. Patient was able to get out of bed and use the commode without any problem which she was not able to do in the past. Patient is also able to turn around in her bed while sleeping without getting short of breath. She had one bowel movement today and she is p.o. tolerant, having normal bladder function. She denies any fever, chest pain, nausea, vomiting, diarrhea, constipation or any urinary symptoms. Plan is to wean her off oxygen as much as possible and transfer her to inpatient rehab. Vitals: Reason For Visit: RESPIRATORY FAILURE Physical Exam Vital Signs: Temp Pulse Resp BP Pulse Ox 98.0 F 65 16 102/78 99 04/20/18 07:58 04/20/18 07:58 04/20/18 09:11 04/20/18 07:58 04/20/18 09:11 Intake & Output 04/19/18 04/20/18 04/21/18 06:59 06:59 06:59 Intake Total 641 660 Output Total 1600 775 Balance -959 -115 Weight 79.8 kg 80.5 kg Results Laboratory Results: 04/19/18 05:38 04/19/18 05:38 04/14/18 16:51 Blood Blood Culture - Final NO GROWTH IN 5 DAYS Impressions: Chest CT 04/15/18 09:41 IMPRESSION: 1. Chronic changes of pulmonary fibrosis. 2. Previously noted faint ground-glass infiltrates have resolved. 3. Trace left pleural effusion, new. Chest X-Ray 04/18/18 06:00 IMPRESSION: Mild improvement aeration in the left base. No other interval change. Assessment & Plan - Diagnosis (1) Acute respiratory failure Qualifiers: Respiratory failure complication: unspecified whether with hypoxia or hypercapnia Qualified Code(s): J96.00 - Acute respiratory failure, unspecified whether with hypoxia or hypercapnia Is this a current diagnosis for this admission?: Yes (2) Acute bronchitis Is this a current diagnosis for this admission?: Yes (3) Interstitial pulmonary fibrosis Is this a current diagnosis for this admission?: Yes (4) Pulmonary hypertension Is this a current diagnosis for this admission?: Yes (5) Cardiomyopathy Is this a current diagnosis for this admission?: Yes (6) Insomnia Is this a current diagnosis for this admission?: No (7) Depression Is this a current diagnosis for this admission?: Yes (8) Hiatal hernia with GERD Is this a current diagnosis for this admission?: Yes
--- NOTE | 2018-04-20 11:11 | PDOC PROGRESS REPORT ---
Subjective Progress Note for:: 04/20/18 Subjective:: JORGE LUIS GALEANO is a 68 year old female past medical history of possible restrictive lung disease due to pulmonary fibrosis and cardiomyopathy both pending final diagnosis. Patient presented to ED complaining of worsening shortness of breath associated with mild nonproductive cough. As per patient she was sent to a scholastic aptitude test grader for possible cardiomyopathy however she has not had a definitive diagnosis, then she was sent to a pulmonology for possible pulmonary fibrosis and she has a pending lung biopsy. She has been taking prednisone 60 mg for the last 30 days and she ran out about 2 days ago. She denies any fever, chills, nausea, vomiting, diarrhea, constipation or any urinary symptoms. Last night she noticed worsening shortness of breath and came to ED for further evaluation. In ED she was seen to be in severe respiratory distress and was placed on BiPAP. Also found to be hypotensive. 02/13/2018. No acute events overnight. Alert oriented very pleasant and cooperative with physical examination. She is on nasal cannula in mild respiratory distress cannot speak in full sentences but she is stating that she is feeling much better than yesterday. Denies any fever, chills, nausea, vomiting, diarrhea, constipation or any urinary symptoms. 02/14/2018. No acute events overnight. Alert oriented very pleasant and cooperative physical examination. She says she is feeling better but still having dyspnea on exertion. She denies any fever, chills, nausea, vomiting, diarrhea, constipation. 04/17/2018. No acute events overnight. On my encounter patient is comfortably resting in her bed with high flow oxygen does not seem to be mild respiratory distress. She is feeling much better and she had a good night sleep last night. She is denying any fever, no pain, chest pain, diarrhea. 04/18/2018. No acute events overnight. On my encounter patient is comfortably sitting in her bed in a reclined position. Patient states that she did use BiPAP at night but later she wanted to be switched to high flow due to BiPAP making her uncomfortable. She has been saturating in the high 90s on high flow and she is stating that she was able to change her position without getting short of breath overnight. Still has a Verduzco in and has not ambulated due to dyspnea on exertion. Currently blood pressure are within normal limits as well as temperature and respiratory rate. She is denying any fever, cough, nausea, vomiting, chest pain , diarrhea, constipation or any urinary symptoms. Will order PT for ambulation. We will continue current treatments and plan is to wean her off of oxygen as much as possible to send her home on O2. 04/19/2018. No acute events overnight patient has been using high flow oxygen all night and she is saying she slept very well and she was able to change positions without any dyspnea. On my encounter she is comfortably sitting in her bed with high flow nasal cannula and having her breakfast. Yesterday she was able to ambulate a little bit without no problems and she is having normal bladder function however she has not had a bowel movement for the last 3 days but she says she does not feel like she is constipated is because of that she has not been eating very well. She denies any fever, chest pain, nausea, vomiting, diarrhea or any urinary symptoms. Yesterday she received physical therapy under the recommending inpatient rehab.She had been normotensive for the last 24 hours except for 7:40 AM a blood pressure 150/79, she has been afebrile, pulse rate of 5660, high flow nasal cannula on FiO2 of 50%, saturating in the 90s, CBC CMP within normal limits except for chronic anemia. Plan is to transfer patient to inpatient rehab where he could hopefully be stabilized and possibly see a GI as outpatient to be evaluated for possible surgery of hiatal hernia. 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 04/20/2018. No acute events overnight. Patient has been using high flow nasal cannula without any problem. Patient was able to get out of bed and use the commode without any problem which she was not able to do in the past. Patient is also able to turn around in her bed while sleeping without getting short of breath. She had one bowel movement today and she is p.o. tolerant, having normal bladder function. She denies any fever, chest pain, nausea, vomiting, diarrhea, constipation or any urinary symptoms. Plan is to wean her off oxygen as much as possible and transfer her to inpatient rehab. Reason For Visit: RESPIRATORY FAILURE Physical Exam Vital Signs: Temp Pulse Resp BP Pulse Ox 98.0 F 65 16 102/78 99 04/20/18 07:58 12/09/18 07:58 04/20/18 09:11 04/20/18 07:58 04/20/18 09:11 Intake & Output 04/19/18 04/20/18 04/21/18 06:59 06:59 06:59 Intake Total 641 660 Output Total 1600 775 Balance -959 -115 Weight 79.8 kg 80.5 kg General appearance: PRESENT: no acute distress, well-developed, well-nourished Head exam: PRESENT: atraumatic, normocephalic Respiratory exam: PRESENT: clear to auscultation trinh, tachypnea. ABSENT: rales , rhonchi, wheezes Cardiovascular exam: PRESENT: RRR. ABSENT: diastolic murmur, rubs, systolic murmur Neurological exam: PRESENT: alert, awake, oriented to person, oriented to place , oriented to time, oriented to situation, CN II-XII grossly intact. ABSENT: motor sensory deficit Results Laboratory Results: 04/19/18 05:38 04/19/18 05:38 04/14/18 16:51 Blood Blood Culture - Final NO GROWTH IN 5 DAYS Impressions: Chest CT 04/15/18 09:41 IMPRESSION: 1. Chronic changes of pulmonary fibrosis. 2. Previously noted faint ground-glass infiltrates have resolved. 3. Trace left pleural effusion, new. Chest X-Ray 04/18/18 06:00 IMPRESSION: Mild improvement aeration in the left base. No other interval change. Assessment & Plan - Diagnosis (1) Acute respiratory failure Qualifiers: Respiratory failure complication: unspecified whether with hypoxia or hypercapnia Qualified Code(s): J96.00 - Acute respiratory failure, unspecified whether with hypoxia or hypercapnia Is this a current diagnosis for this admission?: Yes Plan: Improving. econdary to infective bronchitis superimposed on underlying pulmonary fibrosis. Vitals: SBP 103-132, temperature 98.0, RR 16-26, HR 58-68, SPO2 91%, 40 L FiO2 50%. ABG on 04/14/2018 negative for any hypoxia or hypercarbia. ABG on 04/15/2018 normal pH with mild hypoxia. ABG on 04/16/2018 pH 7.46, PO2 110.9 ABG on 04/17/2018 pH 7.43, PO2 69. ABG on 04/18/2018 pH of 7.47, PO2 96. On 40% oxygen high flow. ABG on 04/19/2018 pH 45.9, SPO2 84.5 On 50% oxygen high flow. Continue BiPAP, supplemental oxygen, DuoNeb, IV steroids. Day 5/5 IV antibiotics. DC antibiotics. Cultures negative. Pulmonary on board. Blood urine culture negative. Plan is to transfer patient to either SNF or LTAC. (2) Acute bronchitis Is this a current diagnosis for this admission?: Yes Plan: Leukocytosis and cough has improved. Likely infectious. Day 5/5 IV antibiotics. DC antibiotics. Cultures negative. (3) Interstitial pulmonary fibrosis Is this a current diagnosis for this admission?: Yes Plan: Will start on high dose steroids. Will get pulmonary records. Pulmonology consulted. Sees community development specialist as outpatient. (4) Pulmonary hypertension Is this a current diagnosis for this admission?: Yes Plan: Due to underlying pulmonary fibrosis. Pulmonary. Continue monitoring vitals continue supplemental oxygen. (5) Cardiomyopathy Is this a current diagnosis for this admission?: Yes Plan: IHSS was ruled out by a repeat echocardiogram. Echo on 04/14/2018 normal left ventricle cannot exclude asymmetric septal hypertrophy and possibly LVOT gradient not optimal. (6) Insomnia Is this a current diagnosis for this admission?: No Plan: Restarted on Ambien. (7) Depression Is this a current diagnosis for this admission?: Yes Plan: Restart home meds. (8) Hiatal hernia with GERD Is this a current diagnosis for this admission?: Yes Plan: Continue PPIs. Surgery was consulted. Patient is not a surgical candidate at this point. Outpatient surgery follow-up
[2018-04-20] MEDS: ZOLPIDEM TARTRATE 5 MG TABLET PO PRN (22:15)
[2018-04-21] MEDS: METHYLPREDNISOLONE INJ 125 MG/2 ML SDV IV SCH (02:40)
[2018-04-21] MEDS: PROPRANOLOL HCL 40 MG TABLET PO SCH ×3 (05:47→22:27)
[2018-04-21] MEDS: LANSOPRAZOLE 30 MG TAB.RAP.DR PO SCH ×2 (05:47→17:34)
[2018-04-21] MEDS: HEPARIN SOD (PORCINE) 5,000 UNIT/ML 1 ML SYRINGE SUBCUT SCH ×3 (05:48→22:28)
[2018-04-21 06:33] LABS: HEMATOCRIT 29.7 % (36.0-47.0); HEMOGLOBIN 9.8 g/dL (12.0-15.5); MEAN CORPUSCULAR HEMOGLOBIN 29.6 pg (27.0-33.4); MEAN CORPUSCULAR HGB CONC 32.8 g/dL (32.0-36.0); MEAN CORPUSCULAR VOLUME 90 fl (80-97); PLATELET COUNT 255 10^3/uL (150-450); RED CELL DISTRIBUTION WIDTH 16.5 % (11.5-14.0); WHITE BLOOD COUNT 7.7 10^3/uL (4.0-10.5)
[2018-04-21 06:48] LABS: ALANINE AMINOTRANSFERASE 26 U/L (9-52); ALBUMIN 3.3 g/dL (3.5-5.0); ALKALINE PHOSPHATASE 47 U/L (38-126); ANION GAP 10 (5-19); ASPARTATE AMINO TRANSFERASE 16 U/L (14-36); BILIRUBIN,DIRECT 0.2 mg/dL (0.0-0.4); BILIRUBIN,TOTAL 0.2 mg/dL (0.2-1.3); BLOOD UREA NITROGEN 25 mg/dL (7-20); CALCIUM 9.1 mg/dL (8.4-10.2); CARBON DIOXIDE 32 mmol/L (22-30); CHLORIDE 100 mmol/L (98-107); GLUCOSE 141 mg/dL (75-110); POTASSIUM 4.7 mmol/L (3.6-5.0); SODIUM 142.4 mmol/L (137-145); TOTAL PROTEIN 5.8 g/dL (6.3-8.2)
[2018-04-21 07:00] LABS: ABSOLUTE LYMPHOCYTES# (MANUAL) 0.4 10^3/uL (0.5-4.7); ABSOLUTE MONOCYTES # (MANUAL) 0.1 10^3/uL (0.1-1.4); ABSOLUTE NEUTROPHILS# (MANUAL) 7.2 10^3/uL (1.7-8.2); BASOPHILS % (MANUAL) 0 % (0-2); EOSINOPHILS % (MANUAL) 0 % (0-6); LYMPHOCYTES % (MANUAL) 5 % (13-45); MONOCYTES % (MANUAL) 1 % (3-13); SEGMENTED NEUTROPHILS % (MAN) 94 % (42-78); TOTAL CELLS COUNTED 100
[2018-04-21 07:04] LABS: TOXIC GRANULATION SLIGHT; TOXIC VACUOLATION PRESENT
[2018-04-21 07:05] LABS: ANISOCYTOSIS 1+; OVALOCYTES 2+; PLATELET COMMENT ADEQUATE; POIKILOCYTOSIS 1+; SCHISTOCYTES 1+; TEAR DROP CELLS 1+
--- NOTE | 2018-04-21 09:33 | PDOC PROGRESS REPORT ---
Subjective Progress Note for:: 04/21/18 Subjective:: JORGE LUIS GALEANO is a 68 year old female past medical history of possible restrictive lung disease due to pulmonary fibrosis and cardiomyopathy both pending final diagnosis. Patient presented to ED complaining of worsening shortness of breath associated with mild nonproductive cough. As per patient she was sent to a security shift manager for possible cardiomyopathy however she has not had a definitive diagnosis, then she was sent to a pulmonology for possible pulmonary fibrosis and she has a pending lung biopsy. She has been taking prednisone 60 mg for the last 30 days and she ran out about 2 days ago. She denies any fever, chills, nausea, vomiting, diarrhea, constipation or any urinary symptoms. Last night she noticed worsening shortness of breath and came to ED for further evaluation. In ED she was seen to be in severe respiratory distress and was placed on BiPAP. Also found to be hypotensive. 02/13/2018. No acute events overnight. Alert oriented very pleasant and cooperative with physical examination. She is on nasal cannula in mild respiratory distress cannot speak in full sentences but she is stating that she is feeling much better than yesterday. Denies any fever, chills, nausea, vomiting, diarrhea, constipation or any urinary symptoms. 02/14/2018. No acute events overnight. Alert oriented very pleasant and cooperative physical examination. She says she is feeling better but still having dyspnea on exertion. She denies any fever, chills, nausea, vomiting, diarrhea, constipation. 04/17/2018. No acute events overnight. On my encounter patient is comfortably resting in her bed with high flow oxygen does not seem to be mild respiratory distress. She is feeling much better and she had a good night sleep last night. She is denying any fever, no pain, chest pain, diarrhea. 04/18/2018. No acute events overnight. On my encounter patient is comfortably sitting in her bed in a reclined position. Patient states that she did use BiPAP at night but later she wanted to be switched to high flow due to BiPAP making her uncomfortable. She has been saturating in the high 90s on high flow and she is stating that she was able to change her position without getting short of breath overnight. Still has a Verduzco in and has not ambulated due to dyspnea on exertion. Currently blood pressure are within normal limits as well as temperature and respiratory rate. She is denying any fever, cough, nausea, vomiting, chest pain , diarrhea, constipation or any urinary symptoms. Will order PT for ambulation. We will continue current treatments and plan is to wean her off of oxygen as much as possible to send her home on O2. 04/19/2018. No acute events overnight patient has been using high flow oxygen all night and she is saying she slept very well and she was able to change positions without any dyspnea. On my encounter she is comfortably sitting in her bed with high flow nasal cannula and having her breakfast. Yesterday she was able to ambulate a little bit without no problems and she is having normal bladder function however she has not had a bowel movement for the last 3 days but she says she does not feel like she is constipated is because of that she has not been eating very well. She denies any fever, chest pain, nausea, vomiting, diarrhea or any urinary symptoms. Yesterday she received physical therapy under the recommending inpatient rehab.She had been normotensive for the last 24 hours except for 7:40 AM a blood pressure 150/79, she has been afebrile, pulse rate of 5660, high flow nasal cannula on FiO2 of 50%, saturating in the 90s, CBC CMP within normal limits except for chronic anemia. Plan is to transfer patient to inpatient rehab where he could hopefully be stabilized and possibly see a GI as outpatient to be evaluated for possible surgery of hiatal hernia. 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 04/20/2018. No acute events overnight. Patient has been using high flow nasal cannula without any problem. Patient was able to get out of bed and use the commode without any problem which she was not able to do in the past. Patient is also able to turn around in her bed while sleeping without getting short of breath. She had one bowel movement today and she is p.o. tolerant, having normal bladder function. She denies any fever, chest pain, nausea, vomiting, diarrhea, constipation or any urinary symptoms. Plan is to wean her off oxygen as much as possible and transfer her to inpatient rehab. 04/21/2018. No acute events overnight. Patient still on high flow with dyspnea with minimal activity. Patient will is able to move in her bed without any shortness of breath however when she tries to ambulate she gets short of breath. She denies any fever, chest pain, nausea, vomiting, diarrhea or any constipation. She is p.o. tolerant having normal bowel and bladder function. Last bowel movement today. Vitals: Systolic blood pressure 118-148, temperature 98.6, pulse 59-65, FiO2 98 % on 40 L high flow nasal cannula FiO2 50% Reason For Visit: RESPIRATORY FAILURE Physical Exam Vital Signs: Temp Pulse Resp BP Pulse Ox 98.6 F 61 18 148/90 H 98 04/21/18 07:47 04/21/18 07:47 04/21/18 07:47 04/21/18 07:47 04/21/18 07:47 Intake & Output 04/20/18 04/21/18 04/22/18 06:59 06:59 06:59 Intake Total 660 980 Output Total 775 1000 Balance -115 -20 Weight 80.5 kg 81.9 kg General appearance: PRESENT: no acute distress, mild distress, well-developed, well-nourished Head exam: PRESENT: atraumatic, normocephalic Respiratory exam: PRESENT: decreased breath sounds, symmetrical, tachypnea. ABSENT: rales, rhonchi, wheezes Cardiovascular exam: PRESENT: RRR. ABSENT: diastolic murmur, rubs, systolic murmur GI/Abdominal exam: PRESENT: normal bowel sounds, soft. ABSENT: distended, guarding, mass, organolmegaly, rebound, tenderness Extremities exam: PRESENT: full ROM. ABSENT: calf tenderness, clubbing, pedal edema Neurological exam: PRESENT: alert, awake, oriented to person, oriented to place , oriented to time, oriented to situation, CN II-XII grossly intact. ABSENT: motor sensory deficit Results Laboratory Results: 04/21/18 05:46 04/21/18 05:46 04/21/18 04/21/18 05:46 05:46 WBC 7.7 RBC 3.30 L Hgb 9.8 L Hct 29.7 L MCV 90 MCH 29.6 MCHC 32.8 RDW 16.5 H Plt Count 255 Seg Neutrophils % Not Reportable Lymphocytes % Not Reportable Monocytes % Not Reportable Eosinophils % Not Reportable Basophils % Not Reportable Absolute Neutrophils Not Reportable Absolute Lymphocytes Not Reportable Absolute Monocytes Not Reportable Absolute Eosinophils Not Reportable Absolute Basophils Not Reportable Sodium 142.4 Potassium 4.7 Chloride 100 Carbon Dioxide 32 H Anion Gap 10 BUN 25 H Creatinine 0.50 L Est GFR ( Amer) > 60 Est GFR (Non-Af Amer) > 60 Glucose 141 H Calcium 9.1 Magnesium 2.2 Total Bilirubin 0.2 AST 16 ALT 26 Alkaline Phosphatase 47 Total Protein 5.8 L Albumin 3.3 L Impressions: Chest CT 04/15/18 09:41 IMPRESSION: 1. Chronic changes of pulmonary fibrosis. 2. Previously noted faint ground-glass infiltrates have resolved. 3. Trace left pleural effusion, new. Chest X-Ray 04/18/18 06:00 IMPRESSION: Mild improvement aeration in the left base. No other interval change. Assessment & Plan - Diagnosis (1) Acute respiratory failure Qualifiers: Respiratory failure complication: unspecified whether with hypoxia or hypercapnia Qualified Code(s): J96.00 - Acute respiratory failure, unspecified whether with hypoxia or hypercapnia Is this a current diagnosis for this admission?: Yes Plan: Improving. Secondary to infective bronchitis superimposed on underlying pulmonary fibrosis. Vitals: Systolic blood pressure 118-148, temperature 98.6, pulse 59-65, FiO2 98 % on 40 L high flow nasal cannula FiO2 50% ABG on 04/14/2018 negative for any hypoxia or hypercarbia. ABG on 04/15/2018 normal pH with mild hypoxia. ABG on 04/16/2018 pH 7.46, PO2 110.9 ABG on 04/17/2018 pH 7.43, PO2 69. ABG on 04/18/2018 pH of 7.47, PO2 96. On 40% oxygen high flow. ABG on 04/19/2018 pH 45.9, SPO2 84.5 On 50% oxygen high flow. Continue BiPAP, supplemental oxygen, DuoNeb and PPI prophylaxis. Day 5/5 IV antibiotics. DC antibiotics. Taper and switch to glucocorticoid taper and switch to p.o. steroids. Day 7 of IV antibiotics. Taper and DC before day 10. Cultures negative. Pulmonary on board. Blood urine culture negative. Plan is to transfer patient to either SNF or LTAC. (2) Acute bronchitis Is this a current diagnosis for this admission?: Yes Plan: Leukocytosis and cough has improved. Likely infectious. Day 5/5 IV antibiotics. DC antibiotics. Cultures negative. (3) Interstitial pulmonary fibrosis Is this a current diagnosis for this admission?: Yes Plan: Will start on high dose steroids. Will get pulmonary records. Pulmonology consulted. Sees 4 h youth development specialist as outpatient. (4) Pulmonary hypertension Is this a current diagnosis for this admission?: Yes Plan: Due to underlying pulmonary fibrosis. Pulmonary. Continue monitoring vitals continue supplemental oxygen. (5) Insomnia Is this a current diagnosis for this admission?: No Plan: Restarted on Ambien. (6) Depression Is this a current diagnosis for this admission?: Yes Plan: Restart home meds. (7) Hiatal hernia with GERD Is this a current diagnosis for this admission?: Yes Plan: Continue PPIs. Surgery was consulted. Patient is not a surgical candidate at this point. Outpatient surgery follow-up (8) Hypertension Is this a current diagnosis for this admission?: Yes Plan: Controlled. Continue carvedilol. Adjust meds as needed.
[2018-04-21 09:50] LABS: ARTERIAL BLOOD BASE EXCESS 7.8 mmol/L; ARTERIAL BLOOD H2CO3 1.42 mmol/L (1.05-1.35); ARTERIAL BLOOD HCO3 32.7 mmol/L (20-24); ARTERIAL BLOOD O2 SATURATION 98.6 % (94-98); ARTERIAL BLOOD PCO2 47.2 mmHg (35-45); ARTERIAL BLOOD PH 7.46 (7.35-7.45); ARTERIAL BLOOD PO2 125.5 mmHg (80-100); ARTERIAL BLOOD TOTAL CO2 34.1 mmol/L (21-25)
[2018-04-21 09:51] LABS: ARTERIAL BLOOD FIO2 50%
[2018-04-21] MEDS: FERROUS SULFATE 325 MG TABLET PO SCH (09:56)
[2018-04-21] MEDS: DULOXETINE HCL 30 MG CAPSULE.DR PO SCH ×2 (09:56→22:27)
[2018-04-21] MEDS: PREDNISONE 20 MG TABLET PO SCH (09:57)
[2018-04-21] MEDS: CARVEDILOL 12.5 MG TABLET PO SCH ×2 (09:57→22:28)
[2018-04-21] MEDS: GABAPENTIN 300 MG CAPSULE PO SCH ×2 (09:57→22:28)
[2018-04-21] MEDS: GUAIFENESIN 600 MG TABLET.SA PO SCH ×2 (09:57→22:28)
[2018-04-21] MEDS: IPRATROPIUM BROMIDE 0.06% NASAL SPRAY 15 ML NASL SCH ×3 (09:58→17:34)
[2018-04-21] MEDS: TIOTROPIUM BROMIDE DPI 5 CAP/KIT (18 MCG/CAP) IH SCH (09:58)
[2018-04-21] MEDS: ALPRAZOLAM 0.5 MG TABLET PO PRN ×2 (10:12→22:28)
--- NOTE | 2018-04-21 13:12 | PDOC PROGRESS REPORT ---
Subjective Progress Note for:: 04/18/18 Subjective:: a little better Reason For Visit: RESPIRATORY FAILURE Physical Exam Vital Signs: Temp Pulse Resp BP Pulse Ox 98.1 F 73 20 122/72 93 04/18/18 08:44 04/18/18 09:34 04/18/18 09:34 04/18/18 08:44 04/18/18 09:34 Intake & Output 04/17/18 04/18/18 04/19/18 06:59 06:59 06:59 Intake Total 50 865 Output Total 1490 1025 Balance -1440 -160 Weight 79.9 kg 81 kg General appearance: PRESENT: no acute distress, cooperative, disheveled, obese Head exam: PRESENT: atraumatic, normocephalic Eye exam: PRESENT: conjunctiva pale, EOMI. ABSENT: nystagmus, periorbital swelling Mouth exam: PRESENT: dry mucosa, neck supple, tongue midline Neck exam: ABSENT: carotid bruit, JVD, lymphadenopathy, thyromegaly, tracheal deviation, tracheostomy Respiratory exam: PRESENT: decreased breath sounds, prolonged expiratory phas, rales, rhonchi, unlabored, wheezes. ABSENT: retraction, stridor Cardiovascular exam: PRESENT: RRR, +S1, +S2, tachycardia Pulses: PRESENT: normal radial pulses GI/Abdominal exam: PRESENT: soft. ABSENT: tenderness Extremities exam: PRESENT: pedal edema. ABSENT: calf tenderness, clubbing, joint swelling Musculoskeletal exam: ABSENT: deformity, dislocation Neurological exam: PRESENT: alert, awake Psychiatric exam: PRESENT: appropriate affect Skin exam: PRESENT: dry, warm Results Laboratory Results: 04/18/18 04:51 04/18/18 04:51 04/18/18 04/18/18 04/18/18 04:51 04:51 05:55 WBC 6.6 RBC 3.02 L Hgb 9.1 L Hct 27.5 L MCV 91 MCH 30.3 MCHC 33.3 RDW 16.3 H Plt Count 234 Seg Neutrophils % 91.5 H Lymphocytes % 6.4 L Monocytes % 1.9 L Eosinophils % 0.0 Basophils % 0.2 Absolute Neutrophils 6.0 Absolute Lymphocytes 0.4 L Absolute Monocytes 0.1 Absolute Eosinophils 0.0 Absolute Basophils 0.0 Carbonic Acid 1.50 H HCO3/H2CO3 Ratio 22:1 ABG pH 7.44 ABG pCO2 49.7 H ABG pO2 93.6 ABG HCO3 33.2 H ABG O2 Saturation 97.3 ABG Base Excess 8.0 FiO2 50% Sodium 141.1 Potassium 4.9 Chloride 99 Carbon Dioxide 36 H Anion Gap 6 BUN 22 H Creatinine 0.65 Est GFR ( Amer) > 60 Est GFR (Non-Af Amer) > 60 Glucose 141 H Calcium 9.1 Magnesium 2.2 Total Bilirubin 0.4 AST 25 ALT 27 Alkaline Phosphatase 47 Total Protein 5.9 L Albumin 3.2 L 04/15/18 11:50 Catheterized Urine Urine Culture - Final NO GROWTH 2 DAYS Impressions: Chest CT 04/15/18 09:41 IMPRESSION: 1. Chronic changes of pulmonary fibrosis. 2. Previously noted faint ground-glass infiltrates have resolved. 3. Trace left pleural effusion, new. Chest X-Ray 04/18/18 06:00 IMPRESSION: Mild improvement aeration in the left base. No other interval change. Assessment & Plan - Diagnosis (1) Acute respiratory failure Qualifiers: Respiratory failure complication: unspecified whether with hypoxia or hypercapnia Qualified Code(s): J96.00 - Acute respiratory failure, unspecified whether with hypoxia or hypercapnia Is this a current diagnosis for this admission?: Yes Plan: overall;Unchanged (2) GERD (gastroesophageal reflux disease) Is this a current diagnosis for this admission?: Yes Plan: Long-standing chronic large hernia and gastric content in thoracic cavity (3) Interstitial pulmonary fibrosis Is this a current diagnosis for this admission?: Yes Plan: 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
--- NOTE | 2018-04-21 13:13 | PDOC PROGRESS REPORT ---
Subjective Progress Note for:: 04/21/18 Subjective:: a little better Reason For Visit: RESPIRATORY FAILURE Physical Exam Vital Signs: Temp Pulse Resp BP Pulse Ox 98.6 F 61 16 148/90 H 98 04/21/18 07:47 04/21/18 07:47 04/21/18 11:16 04/21/18 07:47 04/21/18 11:16 Intake & Output 04/20/18 04/21/18 04/22/18 06:59 06:59 06:59 Intake Total 660 980 Output Total 775 1000 Balance -115 -20 Weight 80.5 kg 81.9 kg General appearance: PRESENT: no acute distress, cooperative, disheveled, obese Head exam: PRESENT: atraumatic, normocephalic Eye exam: PRESENT: conjunctiva pale, EOMI. ABSENT: nystagmus, periorbital swelling Mouth exam: PRESENT: dry mucosa, neck supple, tongue midline Neck exam: ABSENT: carotid bruit, JVD, lymphadenopathy, thyromegaly, tracheal deviation, tracheostomy Respiratory exam: PRESENT: decreased breath sounds, prolonged expiratory phas, rales, rhonchi, unlabored, wheezes. ABSENT: retraction, stridor Cardiovascular exam: PRESENT: RRR, +S1, +S2 Pulses: PRESENT: normal radial pulses GI/Abdominal exam: PRESENT: soft. ABSENT: tenderness Extremities exam: ABSENT: calf tenderness, clubbing, joint swelling Musculoskeletal exam: ABSENT: deformity, dislocation Neurological exam: PRESENT: awake Psychiatric exam: PRESENT: appropriate affect Skin exam: PRESENT: dry, warm Results Laboratory Results: 04/21/18 05:46 04/21/18 05:46 04/21/18 04/21/18 04/21/18 05:46 05:46 09:30 WBC 7.7 RBC 3.30 L Hgb 9.8 L Hct 29.7 L MCV 90 MCH 29.6 MCHC 32.8 RDW 16.5 H Plt Count 255 Seg Neutrophils % Not Reportable Lymphocytes % Not Reportable Monocytes % Not Reportable Eosinophils % Not Reportable Basophils % Not Reportable Absolute Neutrophils Not Reportable Absolute Lymphocytes Not Reportable Absolute Monocytes Not Reportable Absolute Eosinophils Not Reportable Absolute Basophils Not Reportable Carbonic Acid 1.42 H HCO3/H2CO3 Ratio 23:1 ABG pH 7.46 H ABG pCO2 47.2 H ABG pO2 125.5 H ABG HCO3 32.7 H ABG O2 Saturation 98.6 H ABG Base Excess 7.8 FiO2 50% Sodium 142.4 Potassium 4.7 Chloride 100 Carbon Dioxide 32 H Anion Gap 10 BUN 25 H Creatinine 0.50 L Est GFR ( Amer) > 60 Est GFR (Non-Af Amer) > 60 Glucose 141 H Calcium 9.1 Magnesium 2.2 Total Bilirubin 0.2 AST 16 ALT 26 Alkaline Phosphatase 47 Total Protein 5.8 L Albumin 3.3 L Impressions: Chest CT 04/15/18 09:41 IMPRESSION: 1. Chronic changes of pulmonary fibrosis. 2. Previously noted faint ground-glass infiltrates have resolved. 3. Trace left pleural effusion, new. Chest X-Ray 04/18/18 06:00 IMPRESSION: Mild improvement aeration in the left base. No other interval change. Assessment & Plan - Diagnosis (1) Acute respiratory failure Qualifiers: Respiratory failure complication: unspecified whether with hypoxia or hypercapnia Qualified Code(s): J96.00 - Acute respiratory failure, unspecified whether with hypoxia or hypercapnia Is this a current diagnosis for this admission?: Yes Plan: overall;Unchanged (2) GERD (gastroesophageal reflux disease) Is this a current diagnosis for this admission?: Yes Plan: Long-standing chronic large hernia and gastric content in thoracic cavity (3) Interstitial pulmonary fibrosis Is this a current diagnosis for this admission?: Yes Plan: 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
[2018-04-21] MEDS ORDERED: METHYLPREDNISOLONE INJ 125 MG/2 ML SDV IV SCH (14:00)
--- NOTE | 2018-04-21 16:31 | PDOC PROGRESS REPORT ---
Subjective Progress Note for:: 04/18/18 Subjective:: JORGE LUIS GALEANO is a 68 year old female past medical history of possible restrictive lung disease due to pulmonary fibrosis and cardiomyopathy both pending final diagnosis. Patient presented to ED complaining of worsening shortness of breath associated with mild nonproductive cough. As per patient she was sent to a plastics production machine operator for possible cardiomyopathy however she has not had a definitive diagnosis, then she was sent to a pulmonology for possible pulmonary fibrosis and she has a pending lung biopsy. She has been taking prednisone 60 mg for the last 30 days and she ran out about 2 days ago. She denies any fever, chills, nausea, vomiting, diarrhea, constipation or any urinary symptoms. Last night she noticed worsening shortness of breath and came to ED for further evaluation. In ED she was seen to be in severe respiratory distress and was placed on BiPAP. Also found to be hypotensive. 02/13/2018. No acute events overnight. Alert oriented very pleasant and cooperative with physical examination. She is on nasal cannula in mild respiratory distress cannot speak in full sentences but she is stating that she is feeling much better than yesterday. Denies any fever, chills, nausea, vomiting, diarrhea, constipation or any urinary symptoms. 02/14/2018. No acute events overnight. Alert oriented very pleasant and cooperative physical examination. She says she is feeling better but still having dyspnea on exertion. She denies any fever, chills, nausea, vomiting, diarrhea, constipation. 04/17/2018. No acute events overnight. On my encounter patient is comfortably resting in her bed with high flow oxygen does not seem to be mild respiratory distress. She is feeling much better and she had a good night sleep last night. She is denying any fever, no pain, chest pain, diarrhea. 04/18/2018. No acute events overnight. On my encounter patient is comfortably sitting in her bed in a reclined position. Patient states that she did use BiPAP at night but later she wanted to be switched to high flow due to BiPAP making her uncomfortable. She has been saturating in the high 90s on high flow and she is stating that she was able to change her position without getting short of breath overnight. Still has a Verduzco in and has not ambulated due to dyspnea on exertion. Currently blood pressure are within normal limits as well as temperature and respiratory rate. She is denying any fever, cough, nausea, vomiting, chest pain , diarrhea, constipation or any urinary symptoms. Will order PT for ambulation. We will continue current treatments and plan is to wean her off of oxygen as much as possible to send her home on O2. Reason For Visit: RESPIRATORY FAILURE Physical Exam Vital Signs: Temp Pulse Resp BP Pulse Ox 98.1 F 64 24 H 122/72 95 04/18/18 08:44 04/18/18 08:44 04/18/18 08:44 04/18/18 08:44 04/18/18 08:44 Intake & Output 04/17/18 04/18/18 04/19/18 06:59 06:59 06:59 Intake Total 50 865 Output Total 1490 1025 Balance -1440 -160 Weight 79.9 kg 81 kg General appearance: PRESENT: no acute distress, well-developed, well-nourished Neck exam: ABSENT: carotid bruit, JVD, lymphadenopathy, thyromegaly Respiratory exam: PRESENT: other - Left basilar crackle. ABSENT: rales, rhonchi , wheezes Cardiovascular exam: PRESENT: RRR. ABSENT: diastolic murmur, rubs, systolic murmur GI/Abdominal exam: PRESENT: normal bowel sounds, soft. ABSENT: distended, guarding, mass, organolmegaly, rebound, tenderness Extremities exam: PRESENT: full ROM. ABSENT: calf tenderness, clubbing, pedal edema Neurological exam: PRESENT: alert, awake, oriented to person, oriented to place , oriented to time, oriented to situation, CN II-XII grossly intact. ABSENT: motor sensory deficit Results Laboratory Results: 04/18/18 04:51 04/18/18 04:51 04/18/18 04/18/18 04/18/18 04:51 04:51 05:55 WBC 6.6 RBC 3.02 L Hgb 9.1 L Hct 27.5 L MCV 91 MCH 30.3 MCHC 33.3 RDW 16.3 H Plt Count 234 Seg Neutrophils % 91.5 H Lymphocytes % 6.4 L Monocytes % 1.9 L Eosinophils % 0.0 Basophils % 0.2 Absolute Neutrophils 6.0 Absolute Lymphocytes 0.4 L Absolute Monocytes 0.1 Absolute Eosinophils 0.0 Absolute Basophils 0.0 Carbonic Acid 1.50 H HCO3/H2CO3 Ratio 22:1 ABG pH 7.44 ABG pCO2 49.7 H ABG pO2 93.6 ABG HCO3 33.2 H ABG O2 Saturation 97.3 ABG Base Excess 8.0 FiO2 50% Sodium 141.1 Potassium 4.9 Chloride 99 Carbon Dioxide 36 H Anion Gap 6 BUN 22 H Creatinine 0.65 Est GFR ( Amer) > 60 Est GFR (Non-Af Amer) > 60 Glucose 141 H Calcium 9.1 Magnesium 2.2 Total Bilirubin 0.4 AST 25 ALT 27 Alkaline Phosphatase 47 Total Protein 5.9 L Albumin 3.2 L 04/15/18 11:50 Catheterized Urine Urine Culture - Final NO GROWTH 2 DAYS Impressions: Chest CT 04/15/18 09:41 IMPRESSION: 1. Chronic changes of pulmonary fibrosis. 2. Previously noted faint ground-glass infiltrates have resolved. 3. Trace left pleural effusion, new. Chest X-Ray 04/18/18 06:00 IMPRESSION: Mild improvement aeration in the left base. No other interval change. Assessment & Plan - Diagnosis (1) Acute respiratory failure Qualifiers: Respiratory failure complication: unspecified whether with hypoxia or hypercapnia Qualified Code(s): J96.00 - Acute respiratory failure, unspecified whether with hypoxia or hypercapnia Is this a current diagnosis for this admission?: Yes Plan: Improving. ABG improving. Acute respiratory failure secondary to infective bronchitis superimposed on underlying pulmonary fibrosis. ABG on 04/14/2018 negative for any hypoxia or hypercarbia. ABG on 04/15/2018 normal pH with mild hypoxia. ABG on 04/16/2018 pH 7.46, PO2 110.9 ABG on 04/17/2018 pH 7.43, PO2 69. ABG on 04/18/2018 pH of 7.47, PO2 96. On 40% of oxygen through high flow nasal cannula. Continue BiPAP, supplemental oxygen, DuoNeb, IV steroids, day 4 of IV ceftriaxone. Cultures negative. Pulmonary on board. (2) Acute bronchitis Is this a current diagnosis for this admission?: Yes Plan: Leukocytosis and cough has improved. Likely infectious. She has been on empiric antibiotics with the last 4 days. Cultures negative (3) Interstitial pulmonary fibrosis Is this a current diagnosis for this admission?: Yes Plan: Will start on high dose steroids. Will get pulmonary records. Pulmonology consulted. Sees perinatal specialist as outpatient. (4) Pulmonary hypertension Is this a current diagnosis for this admission?: Yes Plan: Due to underlying pulmonary fibrosis. Pulmonary. Continue monitoring vitals continue supplemental oxygen. (5) Cardiomyopathy Is this a current diagnosis for this admission?: Yes Plan: IHSS was ruled out by a repeat echocardiogram. Echo on 04/14/2018 normal left ventricle cannot exclude asymmetric septal hypertrophy and possibly LVOT gradient not optimal. (6) Insomnia Is this a current diagnosis for this admission?: No Plan: Restarted on Ambien. (7) Depression Is this a current diagnosis for this admission?: Yes Plan: Restart home meds. (8) Hiatal hernia with GERD Is this a current diagnosis for this admission?: Yes Plan: Continue PPIs. Surgery was consulted. Patient is not a surgical candidate at this point. Outpatient surgery follow-up
[2018-04-22] MEDS: HEPARIN SOD (PORCINE) 5,000 UNIT/ML 1 ML SYRINGE SUBCUT SCH ×3 (05:29→22:34)
[2018-04-22] MEDS: LANSOPRAZOLE 30 MG TAB.RAP.DR PO SCH ×2 (05:29→18:43)
[2018-04-22] MEDS: PROPRANOLOL HCL 40 MG TABLET PO SCH ×3 (05:29→22:34)
[2018-04-22 05:33] LABS: ABSOLUTE LYMPHOCYTES (AUTO) 1.2 10^3/uL (0.5-4.7); ABSOLUTE MONOCYTES (AUTO) 0.4 10^3/uL (0.1-1.4); ABSOLUTE NEUT (AUTO) 7.5 10^3/uL (1.7-8.2); BASOPHILS % (AUTO) 0.2 % (0-2); EOSINOPHILS % (AUTO) 0.5 % (0-6); HEMATOCRIT 29.6 % (36.0-47.0); HEMOGLOBIN 9.7 g/dL (12.0-15.5); LYMPHOCYTES % (AUTO) 13.3 % (13-45); MEAN CORPUSCULAR HEMOGLOBIN 29.4 pg (27.0-33.4); MEAN CORPUSCULAR HGB CONC 32.8 g/dL (32.0-36.0); MEAN CORPUSCULAR VOLUME 90 fl (80-97); MONOCYTES % (AUTO) 4.8 % (3-13); PLATELET COUNT 274 10^3/uL (150-450); RED CELL DISTRIBUTION WIDTH 16.2 % (11.5-14.0); SEGMENTED NEUTROPHILS % (AUTO) 81.2 % (42-78); TOTAL CELLS COUNTED % (AUTO) 100 %; WHITE BLOOD COUNT 9.2 10^3/uL (4.0-10.5)
[2018-04-22 05:54] LABS: ALANINE AMINOTRANSFERASE 27 U/L (9-52); ALBUMIN 3.1 g/dL (3.5-5.0); ALKALINE PHOSPHATASE 44 U/L (38-126); ANION GAP 7 (5-19); ASPARTATE AMINO TRANSFERASE 16 U/L (14-36); BILIRUBIN,DIRECT 0.1 mg/dL (0.0-0.4); BILIRUBIN,TOTAL 0.2 mg/dL (0.2-1.3); BLOOD UREA NITROGEN 19 mg/dL (7-20); CARBON DIOXIDE 36 mmol/L (22-30); CHLORIDE 96 mmol/L (98-107); GLUCOSE 109 mg/dL (75-110); POTASSIUM 4.1 mmol/L (3.6-5.0); SODIUM 138.8 mmol/L (137-145); TOTAL PROTEIN 5.6 g/dL (6.3-8.2)
[2018-04-22 06:38] LABS: ARTERIAL BLOOD BASE EXCESS 10.8 mmol/L; ARTERIAL BLOOD FIO2 50%; ARTERIAL BLOOD H2CO3 1.35 mmol/L (1.05-1.35); ARTERIAL BLOOD O2 SATURATION 94.2 % (94-98); ARTERIAL BLOOD PH 7.51 (7.35-7.45); ARTERIAL BLOOD PO2 64.4 mmHg (80-100); ARTERIAL BLOOD TOTAL CO2 36.4 mmol/L (21-25)
[2018-04-22] MEDS: ACETAMINOPHEN 325 MG TABLET PO PRN (07:58)
[2018-04-22] MEDS: CARVEDILOL 12.5 MG TABLET PO SCH ×2 (09:03→22:33)
[2018-04-22] MEDS: FERROUS SULFATE 325 MG TABLET PO SCH (09:03)
[2018-04-22] MEDS: GABAPENTIN 300 MG CAPSULE PO SCH ×2 (09:03→22:34)
[2018-04-22] MEDS: PREDNISONE 20 MG TABLET PO SCH (09:03)
[2018-04-22] MEDS: GUAIFENESIN 600 MG TABLET.SA PO SCH ×2 (09:03→22:33)
[2018-04-22] MEDS: DULOXETINE HCL 30 MG CAPSULE.DR PO SCH ×2 (09:03→22:33)
[2018-04-22] MEDS: ALPRAZOLAM 0.5 MG TABLET PO PRN ×2 (09:03→23:46)
[2018-04-22] MEDS: IPRATROPIUM BROMIDE 0.06% NASAL SPRAY 15 ML NASL SCH ×3 (09:04→18:43)
[2018-04-22] MEDS: TIOTROPIUM BROMIDE DPI 5 CAP/KIT (18 MCG/CAP) IH SCH (09:04)
[2018-04-22] MEDS ORDERED: SIMETHICONE 80 MG TAB.CHEW PO PRN (13:33)
--- NOTE | 2018-04-22 13:43 | PDOC PROGRESS REPORT ---
Subjective Progress Note for:: 04/22/18 Subjective:: Improving attempt to ambulate today Reason For Visit: RESPIRATORY FAILURE Physical Exam Vital Signs: Temp Pulse Resp BP Pulse Ox 98.7 F 65 20 111/70 100 04/22/18 08:50 04/22/18 08:50 04/22/18 08:50 04/22/18 08:50 04/22/18 08:50 Intake & Output 04/21/18 04/22/18 04/23/18 06:59 06:59 06:59 Intake Total 980 1912 Output Total 1000 2450 Balance -20 -538 Weight 81.9 kg 80.1 kg General appearance: PRESENT: no acute distress, cooperative, disheveled, obese Head exam: PRESENT: atraumatic, normocephalic Eye exam: PRESENT: conjunctiva pale, EOMI. ABSENT: nystagmus, periorbital swelling Mouth exam: PRESENT: dry mucosa, neck supple, tongue midline Neck exam: ABSENT: carotid bruit, JVD, lymphadenopathy, thyromegaly, tracheal deviation, tracheostomy Respiratory exam: PRESENT: decreased breath sounds, prolonged expiratory phas, rales, rhonchi, unlabored. ABSENT: stridor, tachypnea Cardiovascular exam: PRESENT: RRR, +S1, +S2. ABSENT: bradycardia Pulses: PRESENT: normal radial pulses GI/Abdominal exam: PRESENT: soft. ABSENT: tenderness Gentrourinary exam: PRESENT: indwelling catheter Extremities exam: PRESENT: pedal edema. ABSENT: calf tenderness, clubbing, joint swelling Musculoskeletal exam: ABSENT: deformity, dislocation Neurological exam: PRESENT: alert, awake Psychiatric exam: PRESENT: appropriate affect Skin exam: PRESENT: dry, warm Results Laboratory Results: 04/22/18 04:50 04/22/18 04:50 04/21/18 04/22/18 04/22/18 09:30 04:50 04:50 WBC 9.2 RBC 3.30 L Hgb 9.7 L Hct 29.6 L MCV 90 MCH 29.4 MCHC 32.8 RDW 16.2 H Plt Count 274 Seg Neutrophils % 81.2 H Lymphocytes % 13.3 Monocytes % 4.8 Eosinophils % 0.5 Basophils % 0.2 Absolute Neutrophils 7.5 Absolute Lymphocytes 1.2 Absolute Monocytes 0.4 Absolute Eosinophils 0.0 Absolute Basophils 0.0 Carbonic Acid 1.42 H HCO3/H2CO3 Ratio 23:1 ABG pH 7.46 H ABG pCO2 47.2 H ABG pO2 125.5 H ABG HCO3 32.7 H ABG O2 Saturation 98.6 H ABG Base Excess 7.8 FiO2 50% Sodium 138.8 Potassium 4.1 Chloride 96 L Carbon Dioxide 36 H Anion Gap 7 BUN 19 Creatinine 0.49 L Est GFR ( Amer) > 60 Est GFR (Non-Af Amer) > 60 Glucose 109 Calcium 9.0 Total Bilirubin 0.2 AST 16 ALT 27 Alkaline Phosphatase 44 Total Protein 5.6 L Albumin 3.1 L 04/22/18 06:22 WBC RBC Hgb Hct MCV MCH MCHC RDW Plt Count Seg Neutrophils % Lymphocytes % Monocytes % Eosinophils % Basophils % Absolute Neutrophils Absolute Lymphocytes Absolute Monocytes Absolute Eosinophils Absolute Basophils Carbonic Acid 1.35 HCO3/H2CO3 Ratio 25:1 ABG pH 7.51 H ABG pCO2 45.0 ABG pO2 64.4 L ABG HCO3 35.0 H ABG O2 Saturation 94.2 ABG Base Excess 10.8 FiO2 50% Sodium Potassium Chloride Carbon Dioxide Anion Gap BUN Creatinine Est GFR ( Amer) Est GFR (Non-Af Amer) Glucose Calcium Total Bilirubin AST ALT Alkaline Phosphatase Total Protein Albumin Impressions: Chest CT 04/15/18 09:41 IMPRESSION: 1. Chronic changes of pulmonary fibrosis. 2. Previously noted faint ground-glass infiltrates have resolved. 3. Trace left pleural effusion, new. Chest X-Ray 04/18/18 06:00 IMPRESSION: Mild improvement aeration in the left base. No other interval change. Assessment & Plan - Diagnosis (1) Acute respiratory failure Qualifiers: Respiratory failure complication: unspecified whether with hypoxia or hypercapnia Qualified Code(s): J96.00 - Acute respiratory failure, unspecified whether with hypoxia or hypercapnia Is this a current diagnosis for this admission?: Yes Plan: overall;Unchanged (2) GERD (gastroesophageal reflux disease) Is this a current diagnosis for this admission?: Yes Plan: Long-standing chronic large hernia and gastric content in thoracic cavity (3) Interstitial pulmonary fibrosis Is this a current diagnosis for this admission?: Yes Plan: 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
[2018-04-22] MEDS: IBUPROFEN 800 MG TABLET PO PRN (19:53)
[2018-04-22] MEDS ORDERED: (PENDING PHARMACY ID) (Alprazolam [Xanax] 0.5 MG) PO PRN (19:55)
--- NOTE | 2018-04-22 19:57 | PDOC PROGRESS REPORT ---
Subjective Progress Note for:: 04/22/18 Subjective:: Patient is a 68-year-old female with past medical history of pulmonary fibrosis , cardiomyopathy, hiatal hernia, depression who was admitted 04/14/2018 for acute respiratory failure secondary to bronchitis with underlying interstitial pulmonary fibrosis, pulmonary hypertension, and cardiomyopathy. Patient was seen on morning rounds. She was found resting in bed comfortably on high flow nasal cannula. She was awake, alert and oriented x4. She states that she feels that her breathing has improved. However, she continues to have slight dyspnea on exertion. She denies productive cough. She reports that she has generalized weakness related to her respiratory status; has not yet been out of bed today. Asks if she will see physical therapy again. She is hopeful for discharge to LTAC where she will receive continued acute care and physical therapy. Otherwise, she has no new questions or concerns today. No concerns per nursing. Reason For Visit: RESPIRATORY FAILURE Physical Exam Vital Signs: Temp Pulse Resp BP Pulse Ox 98.8 F 64 20 108/54 L 97 04/22/18 12:42 04/22/18 14:00 04/22/18 12:42 04/22/18 12:42 04/22/18 16:05 Intake & Output 04/21/18 04/22/18 04/23/18 06:59 06:59 06:59 Intake Total 980 1912 1410 Output Total 1000 2450 850 Balance -20 -538 560 Weight 81.9 kg 80.1 kg General appearance: PRESENT: no acute distress, well-developed, well-nourished - Overweight Head exam: PRESENT: atraumatic, normocephalic Eye exam: PRESENT: conjunctiva pink, EOMI, PERRLA. ABSENT: scleral icterus Ear exam: PRESENT: normal external ear exam Mouth exam: PRESENT: moist, tongue midline Neck exam: ABSENT: carotid bruit, JVD, lymphadenopathy, thyromegaly Respiratory exam: PRESENT: decreased breath sounds, prolonged expiratory phas, rhonchi, symmetrical, tachypnea, other - High flow nasal cannula. ABSENT: rales , wheezes Cardiovascular exam: PRESENT: RRR, systolic murmur. ABSENT: diastolic murmur, rubs Pulses: PRESENT: normal dorsalis pedis pul Vascular exam: PRESENT: normal capillary refill GI/Abdominal exam: PRESENT: normal bowel sounds, soft. ABSENT: distended, guarding, mass, organolmegaly, rebound, tenderness Rectal exam: PRESENT: deferred Extremities exam: PRESENT: full ROM. ABSENT: calf tenderness, clubbing, pedal edema Neurological exam: PRESENT: alert, awake, oriented to person, oriented to place , oriented to time, oriented to situation, CN II-XII grossly intact. ABSENT: motor sensory deficit Psychiatric exam: PRESENT: appropriate affect, normal mood. ABSENT: homicidal ideation, suicidal ideation Skin exam: PRESENT: dry, intact, warm. ABSENT: cyanosis, rash Results Laboratory Results: 04/22/18 04:50 04/22/18 04:50 04/22/18 04/22/18 04/22/18 04:50 04:50 06:22 WBC 9.2 RBC 3.30 L Hgb 9.7 L Hct 29.6 L MCV 90 MCH 29.4 MCHC 32.8 RDW 16.2 H Plt Count 274 Seg Neutrophils % 81.2 H Lymphocytes % 13.3 Monocytes % 4.8 Eosinophils % 0.5 Basophils % 0.2 Absolute Neutrophils 7.5 Absolute Lymphocytes 1.2 Absolute Monocytes 0.4 Absolute Eosinophils 0.0 Absolute Basophils 0.0 Carbonic Acid 1.35 HCO3/H2CO3 Ratio 25:1 ABG pH 7.51 H ABG pCO2 45.0 ABG pO2 64.4 L ABG HCO3 35.0 H ABG O2 Saturation 94.2 ABG Base Excess 10.8 FiO2 50% Sodium 138.8 Potassium 4.1 Chloride 96 L Carbon Dioxide 36 H Anion Gap 7 BUN 19 Creatinine 0.49 L Est GFR ( Amer) > 60 Est GFR (Non-Af Amer) > 60 Glucose 109 Calcium 9.0 Total Bilirubin 0.2 AST 16 ALT 27 Alkaline Phosphatase 44 Total Protein 5.6 L Albumin 3.1 L Impressions: Chest CT 04/15/18 09:41 IMPRESSION: 1. Chronic changes of pulmonary fibrosis. 2. Previously noted faint ground-glass infiltrates have resolved. 3. Trace left pleural effusion, new. Chest X-Ray 04/18/18 06:00 IMPRESSION: Mild improvement aeration in the left base. No other interval change. Assessment & Plan - Diagnosis (1) Acute respiratory failure Qualifiers: Respiratory failure complication: unspecified whether with hypoxia or hypercapnia Qualified Code(s): J96.00 - Acute respiratory failure, unspecified whether with hypoxia or hypercapnia Is this a current diagnosis for this admission?: Yes Plan: Improved; secondary to bronchitis with underlying pulmonary fibrosis and pulmonary hypertension. She is admitted to [facility] on continuous cardiac telemetry. She is provided supplemental oxygen via high flow nasal cannula. Scheduled and as needed nebulizer treatments. P.o. prednisone; continue weaning. Mucinex twice daily. Continue home dose Spiriva. Pulmonology is consulted; appreciate their evaluation recommendations. (2) Acute bronchitis Is this a current diagnosis for this admission?: Yes Plan: Completed course of antibiotic therapy. Remaining plan as above. (3) Hiatal hernia with GERD Is this a current diagnosis for this admission?: Yes Plan: Continue PPI. Surgery was consulted; no surgical interventions at this time. Recommend outpatient GI follow-up. (4) Hypertension Is this a current diagnosis for this admission?: Yes Plan: Normotensive today. Continue carvedilol and propanolol. Low-sodium diet. (5) Insomnia Is this a current diagnosis for this admission?: No Plan: Ambien nightly as needed. (6) Interstitial pulmonary fibrosis Is this a current diagnosis for this admission?: Yes Plan: P.o. prednisone; currently weaning. Pulmonology is consulted; primary plan per their expertise. (7) Pulmonary hypertension Is this a current diagnosis for this admission?: Yes Plan: Due to underlying pulmonary fibrosis. Pulmonology is consulted; appreciate their evaluation and recommendations. (8) Depression with anxiety Is this a current diagnosis for this admission?: Yes Plan: Continue home medication regiment: Cymbalta, gabapentin,Low-dose Xanax twice daily as needed - Time Time Spent with patient: 15-24 minutes Anticipated discharge: SNF - vs LTAC Within: when bed available
[2018-04-22] MEDS: ZOLPIDEM TARTRATE 5 MG TABLET PO PRN (22:42)
[2018-04-23] MEDS: HEPARIN SOD (PORCINE) 5,000 UNIT/ML 1 ML SYRINGE SUBCUT SCH ×3 (05:38→22:03)
[2018-04-23] MEDS: LANSOPRAZOLE 30 MG TAB.RAP.DR PO SCH ×2 (05:38→17:09)
[2018-04-23] MEDS: PROPRANOLOL HCL 40 MG TABLET PO SCH ×3 (05:39→22:02)
[2018-04-23 06:08] LABS: ANION GAP 7 (5-19); BLOOD UREA NITROGEN 27 mg/dL (7-20); CALCIUM 8.7 mg/dL (8.4-10.2); CARBON DIOXIDE 34 mmol/L (22-30); CHLORIDE 98 mmol/L (98-107); GLUCOSE 104 mg/dL (75-110); POTASSIUM 4.4 mmol/L (3.6-5.0); SODIUM 139.4 mmol/L (137-145)
[2018-04-23] MEDS: TIOTROPIUM BROMIDE DPI 5 CAP/KIT (18 MCG/CAP) IH SCH (10:22)
[2018-04-23] MEDS: IPRATROPIUM BROMIDE 0.06% NASAL SPRAY 15 ML NASL SCH ×3 (10:22→17:09)
[2018-04-23] MEDS: GABAPENTIN 300 MG CAPSULE PO SCH ×2 (10:24→22:02)
[2018-04-23] MEDS: FERROUS SULFATE 325 MG TABLET PO SCH (10:24)
[2018-04-23] MEDS: DULOXETINE HCL 30 MG CAPSULE.DR PO SCH ×2 (10:24→22:02)
[2018-04-23] MEDS: CARVEDILOL 12.5 MG TABLET PO SCH ×2 (10:24→22:02)
[2018-04-23] MEDS: GUAIFENESIN 600 MG TABLET.SA PO SCH ×2 (10:25→22:02)
[2018-04-23] MEDS: IBUPROFEN 800 MG TABLET PO PRN ×2 (11:23→20:30)
[2018-04-23] MEDS: ALPRAZOLAM 0.5 MG TABLET PO PRN (11:23)
--- NOTE | 2018-04-23 14:19 | PROGRESS NOTE E ---
Progress Note NAME: JORGE LUIS GALEANO : 1950 AGE: 68Y DATE: 04/23/2018 ROOM: 322 SUBJECTIVE: The patient is currently lying in bed. The patient appears to have took a step back yesterday. The patient remains on high flow nasal cannula and her sats dropped into the 80s whenever she tried to use the bedside commode this morning. The patient denies any nausea, vomiting, diarrhea, no dizziness or chest pain. Still has conversational dyspnea. Somewhat tachypneic. The patient does not voice any other concerns at this time. REVIEW OF SYSTEMS: The rest of review of systems is negative. MEDICATIONS: Reviewed. OBJECTIVE: GENERAL: The patient is a 68-year-old female who is awake, alert, she is oriented to person, place, time, and situation. She is verbal, conversational, does not appear to be in any acute distress. VITAL SIGNS: As follows: Temperature is 97.4, pulse 73, respirations 26, blood pressure is 113/63, oxygen saturation is 94% on high flow nasal cannula. SKIN: Warm and dry. No rash, she is not diaphoretic. HEENT: Pupils equal, round, and reactive to light and accommodation. Conjunctivae pink. There is no evidence of JVP. CARDIOVASCULAR: Heart is regular. No rub. CHEST: Extremely diminished, symmetrical. Slightly labored. ABDOMEN: Soft, nontender, nondistended. BACK: No CVA tenderness or sacral edema. EXTREMITIES: No clubbing, cyanosis, edema. PSYCHIATRIC: Appropriate affect, pleasant mood. DIAGNOSTICS: Lab values are as follows - Hematology obtained on ; WBC 9.2, hemoglobin 10.7, hematocrit 29.6, platelet count 274,000. Chemistry obtained on 04/23/2018; sodium 139, potassium 4.4, chloride 108, carbon dioxide 34, BUN 27, creatinine 0.48, glucose 104, calcium 8.7. IMPRESSION AND PLAN: 1. Acute on chronic hypoxemic respiratory failure. The patient has been tachypneic, still requiring high flow nasal cannula. The patient normally wears 4 liters at home. The patient is on Mucinex. I do appreciate Pulmonology's input on this and we will follow. 2. Interstitial pulmonary fibrosis. Steroids are going to be not very effective with this. This is a difficult diagnosis. The patient is aware. We will supplement O2 as needed. Appreciate Pulmonology support. 3. Hiatal hernia with gastroesophageal reflux disease. The patient is not an operative candidate at this time given her respiratory status. We will alternate PPI with H2 receptor jillian. 4. Hypertension. Continue home medications. 5. Insomnia. Ambien as needed. 6. Pulmonary hypertension. The patient appears optivolemic. 7. Depression with anxiety. Continue the patient's home medications. CODE STATUS: The patient is a full code. DISPOSITION: Depending on the patient's symptomatology and diagnostic findings will reevaluate in the a.m. TIME SPENT: Time spent on this follow up including assessment and plan, physical examination, patient education, review of records is 35 minutes. DICTATING PHYSICIAN: SALINAS RESENDIZ NP [id number] PHY#: [id number] ID: [id number] JOB#: [id number] ACCT: [id number] cc: >
[2018-04-23] MEDS: FAMOTIDINE 20 MG TABLET PO SCH (14:37)
--- NOTE | 2018-04-23 14:45 | PDOC PROGRESS REPORT ---
Subjective Progress Note for:: 04/23/18 Subjective:: Improving Not ready for home patient may do well at a LTAC Reason For Visit: RESPIRATORY FAILURE Physical Exam Vital Signs: Temp Pulse Resp BP Pulse Ox 97.8 F 72 15 101/61 98 04/23/18 11:39 04/23/18 11:39 04/23/18 11:58 04/23/18 11:39 04/23/18 11:58 Intake & Output 04/22/18 04/23/18 04/24/18 06:59 06:59 06:59 Intake Total 1912 1410 250 Output Total 2450 850 Balance -538 560 250 Weight 80.1 kg 78.8 kg General appearance: PRESENT: no acute distress, cooperative, disheveled, obese, well-developed, well-nourished Head exam: PRESENT: atraumatic, normocephalic Eye exam: PRESENT: conjunctiva pale, EOMI. ABSENT: nystagmus, periorbital swelling Mouth exam: PRESENT: dry mucosa, neck supple, tongue midline, other - High flow nasal oxygen Neck exam: ABSENT: carotid bruit, JVD, lymphadenopathy, thyromegaly, tracheal deviation, tracheostomy Respiratory exam: PRESENT: decreased breath sounds, prolonged expiratory phas, rales, rhonchi, symmetrical, unlabored, wheezes. ABSENT: retraction, stridor Cardiovascular exam: PRESENT: RRR, +S1, +S2 Pulses: PRESENT: normal radial pulses GI/Abdominal exam: PRESENT: soft. ABSENT: tenderness Extremities exam: ABSENT: calf tenderness, clubbing, joint swelling, pedal edema Musculoskeletal exam: ABSENT: deformity, dislocation Neurological exam: PRESENT: alert, awake Psychiatric exam: PRESENT: appropriate affect Skin exam: PRESENT: dry, warm Results Laboratory Results: 04/22/18 04:50 04/23/18 04:56 04/23/18 04/23/18 04:56 04:56 Sodium 139.4 Potassium 4.4 Chloride 98 Carbon Dioxide 34 H Anion Gap 7 BUN 27 H Creatinine 0.48 L Est GFR ( Amer) > 60 Est GFR (Non-Af Amer) > 60 Glucose 104 Calcium 8.7 Magnesium 2.2 Impressions: Chest CT 04/15/18 09:41 IMPRESSION: 1. Chronic changes of pulmonary fibrosis. 2. Previously noted faint ground-glass infiltrates have resolved. 3. Trace left pleural effusion, new. Chest X-Ray 04/18/18 06:00 IMPRESSION: Mild improvement aeration in the left base. No other interval change. Assessment & Plan - Diagnosis (1) Acute respiratory failure Qualifiers: Respiratory failure complication: unspecified whether with hypoxia or hypercapnia Qualified Code(s): J96.00 - Acute respiratory failure, unspecified whether with hypoxia or hypercapnia Is this a current diagnosis for this admission?: Yes Plan: overall;Unchanged (2) GERD (gastroesophageal reflux disease) Is this a current diagnosis for this admission?: Yes Plan: Long-standing chronic large hernia and gastric content in thoracic cavity (3) Interstitial pulmonary fibrosis Is this a current diagnosis for this admission?: Yes Plan: 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
[2018-04-23] MEDS: PROMETHAZINE HCL 25 MG TABLET PO PRN (20:30)
[2018-04-23] MEDS: ZOLPIDEM TARTRATE 5 MG TABLET PO PRN (22:02)
[2018-04-24] MEDS: FAMOTIDINE 20 MG TABLET PO SCH ×2 (00:44→11:40)
[2018-04-24] MEDS: PROPRANOLOL HCL 40 MG TABLET PO SCH (05:22)
[2018-04-24] MEDS: HEPARIN SOD (PORCINE) 5,000 UNIT/ML 1 ML SYRINGE SUBCUT SCH ×3 (05:23→21:46)
[2018-04-24] MEDS: LANSOPRAZOLE 30 MG TAB.RAP.DR PO SCH ×2 (05:23→17:41)
[2018-04-24 05:42] LABS: ANION GAP 6 (5-19); BLOOD UREA NITROGEN 26 mg/dL (7-20); CARBON DIOXIDE 37 mmol/L (22-30); CHLORIDE 98 mmol/L (98-107); GLUCOSE 108 mg/dL (75-110); POTASSIUM 4.7 mmol/L (3.6-5.0); SODIUM 140.5 mmol/L (137-145)
[2018-04-24] MEDS: GABAPENTIN 300 MG CAPSULE PO SCH ×2 (09:20→21:46)
[2018-04-24] MEDS: FERROUS SULFATE 325 MG TABLET PO SCH (09:20)
[2018-04-24] MEDS: ALPRAZOLAM 0.5 MG TABLET PO PRN ×2 (09:20→21:46)
[2018-04-24] MEDS: DULOXETINE HCL 30 MG CAPSULE.DR PO SCH ×2 (09:21→21:46)
[2018-04-24] MEDS: CARVEDILOL 12.5 MG TABLET PO SCH ×2 (09:21→21:46)
[2018-04-24] MEDS: GUAIFENESIN 600 MG TABLET.SA PO SCH ×2 (09:21→21:46)
[2018-04-24] MEDS: TIOTROPIUM BROMIDE DPI 5 CAP/KIT (18 MCG/CAP) IH SCH ×2 (09:21→09:26)
[2018-04-24] MEDS: IPRATROPIUM BROMIDE 0.06% NASAL SPRAY 15 ML NASL SCH ×3 (09:21→17:41)
[2018-04-24] MEDS: IBUPROFEN 800 MG TABLET PO PRN (11:39)
--- NOTE | 2018-04-24 12:54 | PDOC PROGRESS REPORT ---
Subjective Progress Note for:: 04/24/18 Subjective:: Unchanged over the last 24 hours Reason For Visit: RESPIRATORY FAILURE Physical Exam Vital Signs: Temp Pulse Resp BP Pulse Ox 99.8 F 89 18 89/61 L 95 04/24/18 11:45 04/24/18 11:45 04/24/18 11:47 04/24/18 11:45 04/24/18 11:47 Intake & Output 04/23/18 04/24/18 04/25/18 06:59 06:59 06:59 Intake Total 1410 368 200 Output Total 850 0 Balance 560 368 200 Weight 78.8 kg 77.7 kg General appearance: PRESENT: cooperative, disheveled, obese Head exam: PRESENT: atraumatic, normocephalic Eye exam: PRESENT: conjunctiva pale. ABSENT: nystagmus, periorbital swelling Mouth exam: PRESENT: dry mucosa, neck supple, tongue midline Neck exam: ABSENT: carotid bruit, JVD, lymphadenopathy, thyromegaly, tracheal deviation, tracheostomy Respiratory exam: PRESENT: decreased breath sounds, prolonged expiratory phas, rales, rhonchi, wheezes. ABSENT: retraction, stridor, tachypnea Cardiovascular exam: PRESENT: RRR, +S1, +S2 Pulses: PRESENT: normal radial pulses GI/Abdominal exam: PRESENT: soft. ABSENT: tenderness Extremities exam: PRESENT: pedal edema. ABSENT: calf tenderness, clubbing, joint swelling, tenderness Musculoskeletal exam: ABSENT: deformity, dislocation Neurological exam: PRESENT: alert, awake Psychiatric exam: PRESENT: appropriate affect Skin exam: PRESENT: dry, warm Results Laboratory Results: 04/22/18 04:50 04/24/18 04:53 04/24/18 04:53 Sodium 140.5 Potassium 4.7 Chloride 98 Carbon Dioxide 37 H Anion Gap 6 BUN 26 H Creatinine 0.61 Est GFR ( Amer) > 60 Est GFR (Non-Af Amer) > 60 Glucose 108 Calcium 9.0 Magnesium 2.2 Impressions: Chest CT 04/15/18 09:41 IMPRESSION: 1. Chronic changes of pulmonary fibrosis. 2. Previously noted faint ground-glass infiltrates have resolved. 3. Trace left pleural effusion, new. Chest X-Ray 04/18/18 06:00 IMPRESSION: Mild improvement aeration in the left base. No other interval change. Assessment & Plan - Diagnosis (1) Acute respiratory failure Qualifiers: Respiratory failure complication: unspecified whether with hypoxia or hypercapnia Qualified Code(s): J96.00 - Acute respiratory failure, unspecified whether with hypoxia or hypercapnia Is this a current diagnosis for this admission?: Yes Plan: overall;Unchanged (2) GERD (gastroesophageal reflux disease) Is this a current diagnosis for this admission?: Yes Plan: Long-standing chronic large hernia and gastric content in thoracic cavity (3) Interstitial pulmonary fibrosis Is this a current diagnosis for this admission?: Yes Plan: 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
--- NOTE | 2018-04-24 17:37 | PROGRESS NOTE E ---
Progress Note NAME: JORGE LUIS GALEANO : 1950 AGE: 68Y DATE: 04/24/2018 ROOM: 322 SUBJECTIVE: The patient is lying in bed. She states she feels about the same today as she did yesterday. She denies any nausea, vomiting, diarrhea. Her shortness of breath is at baseline. She did get a little anxious today when she was on the phone with Medicare. The patient denies any dizziness, chest pain. No fevers or chills. The patient has been afebrile, blood pressures have been in a good range, and the patient does not voice any other concerns at this time. REVIEW OF SYSTEMS: The rest of the review of systems is negative. MEDICATIONS: Medications have been reviewed. OBJECTIVE: GENERAL: The patient is a 68-year-old female who is awake, alert, and oriented to person, place, time, and situation. She is verbal, conversational. She does not appear to be in any acute distress. VITAL SIGNS: As follows: Temperature is 98.4, pulse 75, respirations 22, blood pressure is 118/85, oxygen saturation is 97% on high-flow nasal cannula. SKIN: Warm and dry. No rash, not diaphoretic. HEENT: Pupils are equal, round, and reactive to light and accommodation. Conjunctivae pink. There is no evidence of JVP. CARDIOVASCULAR: Heart is regular. There is no murmur or rub. CHEST: The patient does have bilateral very diminished lung sounds, symmetrical, unlabored. ABDOMEN: Soft, nontender, nondistended. BACK: No CVA tenderness or sacral edema. EXTREMITIES: No clubbing, cyanosis, edema. PSYCHIATRIC: Appropriate affect, a little anxious. DIAGNOSTICS: Lab values are as follows. Hematology obtained on 04/22/2018: WBC 9.2, hemoglobin 9.7, hematocrit 29.6, platelet count 274,000. Chemistry obtained 04/24/2018: Sodium 140, potassium 4.7, chloride 108, carbon dioxide 37, BUN 26, creatinine 0.61, glucose 108, calcium 9.0, magnesium 2.2. IMPRESSION AND PLAN: 1. ACUTE ON CHRONIC HYPOXEMIC RESPIRATORY FAILURE. The patient has been tachypneic, still requiring high-flow nasal cannula. The patient normally wears 4 L at home. Will continue Mucinex. Appreciate Pulmonology's input on this. The patient is currently awaiting placement at an LTAC. 2. INTERSTITIAL PULMONARY FIBROSIS. Of course steroids are not very effective with this. Quite a difficult diagnosis. The patient is aware of this. Continue to supplement O2 as needed. Appreciate Pulmonary support. 3. HIATAL HERNIA WITH GASTROESOPHAGEAL REFLUX DISEASE. The patient is not an operative candidate at this particular time. Will continue to alternate PPI and H2 receptor jillian. 4. HYPERTENSION. Continue home medications. 5. INSOMNIA. Ambien as needed. 6. PULMONARY HYPERTENSION. The patient appears optivolemic. 7. DEPRESSION WITH ANXIETY. Will continue home medication. DISPOSITION: THE PATIENT IS A FULL CODE. Pending the patient's symptomatology and diagnostic findings, will re-evaluate in the a.m. Time spent on this followup, including assessment/plan, physical examination, patient education, review of records, is 25 minutes. DICTATING PHYSICIAN: SALINAS RESENDIZ NP [id number] PHY#: [id number] ID: [id number] JOB#: [id number] ACCT: [id number] cc: >
[2018-04-24] MEDS: ZOLPIDEM TARTRATE 5 MG TABLET PO PRN (21:46)
[2018-04-25] MEDS: FAMOTIDINE 20 MG TABLET PO SCH ×2 (00:45→12:46)
[2018-04-25] MEDS: IBUPROFEN 800 MG TABLET PO PRN (02:16)
[2018-04-25] MEDS: ACETAMINOPHEN 325 MG TABLET PO PRN (03:35)
[2018-04-25 05:37] LABS: HEMATOCRIT 34.5 % (36.0-47.0); HEMOGLOBIN 11.3 g/dL (12.0-15.5); MEAN CORPUSCULAR HGB CONC 32.7 g/dL (32.0-36.0); MEAN CORPUSCULAR VOLUME 89 fl (80-97); PLATELET COUNT 313 10^3/uL (150-450); RED BLOOD COUNT 3.89 10^6/uL (3.72-5.28); RED CELL DISTRIBUTION WIDTH 15.8 % (11.5-14.0); WHITE BLOOD COUNT 8.2 10^3/uL (4.0-10.5)
[2018-04-25 05:44] LABS: ANION GAP 6 (5-19); BLOOD UREA NITROGEN 28 mg/dL (7-20); CALCIUM 8.9 mg/dL (8.4-10.2); CARBON DIOXIDE 34 mmol/L (22-30); CHLORIDE 99 mmol/L (98-107); GLUCOSE 121 mg/dL (75-110); POTASSIUM 4.7 mmol/L (3.6-5.0); SODIUM 138.5 mmol/L (137-145)
[2018-04-25 06:11] LABS: ABSOLUTE LYMPHOCYTES# (MANUAL) 1.1 10^3/uL (0.5-4.7); ABSOLUTE MONOCYTES # (MANUAL) 0.2 10^3/uL (0.1-1.4); ABSOLUTE NEUTROPHILS# (MANUAL) 6.6 10^3/uL (1.7-8.2); BAND NEUTROPHILS % (MANUAL) 1 % (3-5); BASOPHILS % (MANUAL) 0 % (0-2); EOSINOPHILS % (MANUAL) 3 % (0-6); LYMPHOCYTES % (MANUAL) 14 % (13-45); MONOCYTES % (MANUAL) 2 % (3-13); SEGMENTED NEUTROPHILS % (MAN) 80 % (42-78); TOTAL CELLS COUNTED 100
[2018-04-25 06:13] LABS: HYPOCHROMASIA 1+; PLATELET COMMENT ADEQUATE; PLATELET GIANT PRESENT; PLATELET LARGE PRESENT; POLYCHROMASIA SLIGHT
[2018-04-25] MEDS: LANSOPRAZOLE 30 MG TAB.RAP.DR PO SCH ×2 (06:38→18:19)
[2018-04-25] MEDS: HEPARIN SOD (PORCINE) 5,000 UNIT/ML 1 ML SYRINGE SUBCUT SCH ×3 (06:40→22:13)
[2018-04-25] MEDS: CARVEDILOL 12.5 MG TABLET PO SCH ×2 (09:46→22:13)
[2018-04-25] MEDS: IPRATROPIUM BROMIDE 0.06% NASAL SPRAY 15 ML NASL SCH ×3 (09:48→18:21)
[2018-04-25] MEDS: FERROUS SULFATE 325 MG TABLET PO SCH (09:48)
[2018-04-25] MEDS: GUAIFENESIN 600 MG TABLET.SA PO SCH ×2 (09:48→22:13)
[2018-04-25] MEDS: GABAPENTIN 300 MG CAPSULE PO SCH ×2 (09:48→22:13)
[2018-04-25] MEDS: DULOXETINE HCL 30 MG CAPSULE.DR PO SCH ×2 (09:48→22:13)
[2018-04-25] MEDS: TIOTROPIUM BROMIDE DPI 5 CAP/KIT (18 MCG/CAP) IH SCH (09:49)
[2018-04-25] MEDS: ALPRAZOLAM 0.5 MG TABLET PO PRN ×2 (09:54→22:13)
--- NOTE | 2018-04-25 10:18 | RADIOLOGY REPORT (SQ) ---
EXAM DESCRIPTION: CHEST SINGLE VIEW COMPLETED DATE/TIME: 04/25/2018 10:01 am REASON FOR STUDY: Hypoxia, dyspnea COMPARISON: Portable chest 04/18/2018. CT of chest with contrast 01/28/2018. EXAM PARAMETERS: NUMBER OF VIEWS: One view. TECHNIQUE: Single frontal radiographic view of the chest acquired. RADIATION DOSE: NA LIMITATIONS: None. FINDINGS: LUNGS AND PLEURA: There is evidence of bilateral interstitial infiltrates again noted with confluent infiltrate noted in the left retrocardiac region obscuring the left hemidiaphragm. These findings are unchanged. The overall pattern is compatible with interstitial fibrosis with superimpos ed infiltrate at left lung base not excluded. MEDIASTINUM AND HILAR STRUCTURES: No masses. Contour normal. HEART AND VASCULAR STRUCTURES: The heart has unchanged with aortic atherosclerosis. BONES: Dorsal spondylosis with scoliosis convex right noted. HARDWARE: None in the chest. OTHER: Surgical clips left lung base. IMPRESSION: Diffuse bilateral chronic interstitial fibrosis with left basilar pneumonia not excluded . TECHNICAL DOCUMENTATION: JOB ID: [id number] [employer]- All Rights Reserved Reading location - IP/workstation name: [email or web address]
[2018-04-25] MEDS: PROMETHAZINE HCL 25 MG TABLET PO PRN (10:46)
[2018-04-25] MEDS: PREDNISONE 20 MG TABLET PO SCH (10:47)
--- NOTE | 2018-04-25 14:52 | PROGRESS NOTE E ---
Progress Note NAME: JORGE LUIS GALEANO : 1950 AGE: 68Y DATE: 04/25/2018 ROOM: 322 SUBJECTIVE: The patient is currently lying in bed. She states that she feels crummy this morning. The patient said that she had a bad night last night, had an episode of significant tachypnea and hypoxia and did require Respiratory Therapy to come to the bedside and increase her FIO2 for a while. The patient is requesting to be on an antibiotic as she states she does better when she is on an antibiotic. The patient does not voice any other concerns at this time. REVIEW OF SYSTEMS: The rest of the review of systems is negative. MEDICATIONS: Medications have been reviewed. OBJECTIVE: GENERAL: The patient is a 68-year-old female who is awake, alert. She is oriented to person, place, time, and situation. She is verbal, conversational, does not appear to be distressed. VITAL SIGNS: As follows: Temperature is 98.5, pulse 79, respirations 18, blood pressure 91/59, oxygen saturation is 100% on 50% FIO2. SKIN: Pale. She is diaphoretic. HEENT: Pupils are reactive. No evidence of JVP. CARDIOVASCULAR: Heart is regular. No rub. CHEST: Quite diminished, symmetrical, unlabored. ABDOMEN: Soft, nontender. EXTREMITIES: There is no edema. PSYCHIATRIC: Appropriate affect. Pleasant mood, somewhat anxious. DIAGNOSTICS: Lab values are as follows. Hematology obtained on 04/25/2018: WBC 8.2, hemoglobin 11.3, hematocrit 34.5, platelet count is 314,000. Chemistry obtained on 04/25/2018: Sodium is 138, potassium 4.7, chloride 99, carbon dioxide 34, BUN 28, creatinine 0.71, glucose 121, calcium is 8.9. IMPRESSION AND PLAN: 1. ACUTE ON CHRONIC HYPOXEMIC RESPIRATORY FAILURE. The patient has been tachypneic, still requiring high-flow nasal cannula. She normally wears 4 L at home. Will continue Mucinex. Appreciate Pulmonary's input on this. The patient is awaiting to go to LTAC; however, given the patient's episode overnight, will obtain chest x-ray and follow. 2. INTERSTITIAL PULMONARY FIBROSIS. The patient's, of course, steroids are not very effective with this, quite a difficult diagnosis. The patient is aware of this. Continue to supplement O2 as needed. Appreciate Pulmonary support. 3. HIATAL HERNIA WITH GERD. The patient is not an operative candidate at this time. Will continue to alternate an H2 receptor jillian with PPI therapy. 4. HYPERTENSION. Continue home medications. 5. INSOMNIA. Ambien as needed. 6. PULMONARY HYPERTENSION. The patient appears optivolemic. 7. DEPRESSION WITH ANXIETY. Continue home medication. DISPOSITION: THE PATIENT IS A FULL CODE. Pending the patient's symptomatology and diagnostic findings, will re-evaluate in the a.m. Time spent on this followup, including assessment/plan, physical examination, patient education, review of records, is 35 minutes. DICTATING PHYSICIAN: SALINAS RESENDIZ NP [id number] PHY#: [id number] ID: [id number] JOB#: [id number] ACCT: [id number] cc: >
[2018-04-25] MEDS: PIPERACILLIN SODIUM/TAZOBACTAM 4.5 GM in NORMAL SALINE 100 ML IV SCH (18:20)
[2018-04-25 20:42] LABS: ARTERIAL BLOOD BASE EXCESS 7.8 mmol/L; ARTERIAL BLOOD H2CO3 1.71 mmol/L (1.05-1.35); ARTERIAL BLOOD O2 SATURATION 59.2 % (94-98); ARTERIAL BLOOD PCO2 56.7 mmHg (35-45); ARTERIAL BLOOD TOTAL CO2 35.8 mmol/L (21-25)
[2018-04-25 21:22] LABS: ARTERIAL BLOOD FIO2 82%; ARTERIAL BLOOD PO2 31.8 mmHg (80-100)
[2018-04-25] MEDS: ZOLPIDEM TARTRATE 5 MG TABLET PO PRN (22:13)
[2018-04-25 23:04] LABS: ARTERIAL BLOOD BASE EXCESS 3.5 mmol/L; ARTERIAL BLOOD H2CO3 1.16 mmol/L (1.05-1.35); ARTERIAL BLOOD HCO3 27.3 mmol/L (20-24); ARTERIAL BLOOD O2 SATURATION 92.6 % (94-98); ARTERIAL BLOOD PCO2 38.5 mmHg (35-45); ARTERIAL BLOOD PH 7.47 (7.35-7.45); ARTERIAL BLOOD PO2 60.4 mmHg (80-100); ARTERIAL BLOOD TOTAL CO2 28.4 mmol/L (21-25)
[2018-04-25 23:05] LABS: ARTERIAL BLOOD FIO2 50%
[2018-04-26] MEDS: FAMOTIDINE 20 MG TABLET PO SCH ×2 (00:46→13:04)
[2018-04-26] MEDS: PIPERACILLIN SODIUM/TAZOBACTAM 4.5 GM in NORMAL SALINE 100 ML IV SCH ×4 (00:46→17:44)
[2018-04-26] MEDS: HEPARIN SOD (PORCINE) 5,000 UNIT/ML 1 ML SYRINGE SUBCUT SCH ×3 (06:13→22:20)
[2018-04-26] MEDS: LANSOPRAZOLE 30 MG TAB.RAP.DR PO SCH ×2 (06:14→17:44)
[2018-04-26 06:40] LABS: ARTERIAL BLOOD BASE EXCESS 4.6 mmol/L; ARTERIAL BLOOD H2CO3 1.24 mmol/L (1.05-1.35); ARTERIAL BLOOD HCO3 28.8 mmol/L (20-24); ARTERIAL BLOOD O2 SATURATION 93.6 % (94-98); ARTERIAL BLOOD PCO2 41.3 mmHg (35-45); ARTERIAL BLOOD PH 7.46 (7.35-7.45); ARTERIAL BLOOD PO2 64.3 mmHg (80-100)
[2018-04-26] MEDS: TIOTROPIUM BROMIDE DPI 5 CAP/KIT (18 MCG/CAP) IH SCH (09:22)
[2018-04-26] MEDS: GABAPENTIN 300 MG CAPSULE PO SCH ×2 (09:23→22:23)
[2018-04-26] MEDS: DULOXETINE HCL 30 MG CAPSULE.DR PO SCH ×2 (09:23→22:22)
[2018-04-26] MEDS: PREDNISONE 20 MG TABLET PO SCH (09:23)
[2018-04-26] MEDS: ALPRAZOLAM 0.5 MG TABLET PO PRN (09:23)
[2018-04-26] MEDS: CARVEDILOL 12.5 MG TABLET PO SCH ×2 (09:24→22:22)
[2018-04-26] MEDS: FERROUS SULFATE 325 MG TABLET PO SCH (09:24)
[2018-04-26] MEDS: GUAIFENESIN 600 MG TABLET.SA PO SCH ×2 (09:24→22:32)
[2018-04-26] MEDS: IPRATROPIUM BROMIDE 0.06% NASAL SPRAY 15 ML NASL SCH ×3 (09:24→17:44)
--- NOTE | 2018-04-26 20:47 | PROGRESS NOTE E ---
Progress Note NAME: JORGE LUIS GALEANO : 1950 AGE: 68Y DATE: 04/26/2018 ROOM: 322 SUBJECTIVE: The patient is lying in bed. She states she feels a little better today in comparison to yesterday. The patient is excited to be back on antibiotics. The patient denies any nausea, vomiting, diarrhea. No dizziness, chest pain, shortness of breath. The patient states that it is ongoing. The patient still has some conversational dyspnea, remains on high flow nasal cannula. BRIEF HISTORY: The patient is a 68-year-old female with a history of pulmonary fibrosis. This has been a diagnosis in the last couple of years, so in spite of the severity of the patient's disease this is a new diagnosis for her and she is having some difficulty in processing this. The patient has been followed by pulmonology and remains on high flow nasal cannula. The patient yesterday again producing some more sputum, so chest x-ray was done which could not rule out any consolidation in the left lung base, therefore, went ahead and resumed the patient's antibiotic coverage given that she had had a low grade temperature and was diaphoretic yesterday. The patient is being currently reviewed by LT for transfer for treatment in pulmonary rehabilitation. REVIEW OF SYSTEMS: The rest of review of systems negative. MEDICATIONS: Have been reviewed. OBJECTIVE: GENERAL: The patient is a 68-year-old female who is awake, alert. She is oriented to person, time, place, situation. She is verbal, conversational. She does not appear to be in any acute distress. VITAL SIGNS: Temperature is 97.8, pulse 77, respirations 20, blood pressure is 116/76, oxygen saturation is 91% on high flow nasal cannula. SKIN: Warm and dry. No rash. She is not diaphoretic. She is no longer clammy. HEENT: Pupils are reactive. There is no evidence of JVP. CARDIOVASCULAR: Heart is regular. There is no rub. CHEST: Very diminished throughout to auscultation, very coarse. ABDOMEN: Soft, nontender. EXTREMITIES: No clubbing, cyanosis, or edema. PSYCHIATRIC: Appropriate affect, pleasant mood. DIAGNOSTICS: Lab values are as follows - Hematology obtained on 04/25/2018; WBC is 8.2, hemoglobin 11.3, hematocrit is 34.5, platelet count is 313,000. Chemistry obtained on 04/25/2018; sodium 138, potassium 4.7, chloride is 99, carbon dioxide 34, BUN 28, creatinine is 0.71, glucose 121, calcium is 8.9, magnesium is 2.1. IMPRESSION AND PLAN: 1. ACUTE ON CHRONIC HYPOXEMIC RESPIRATORY FAILURE. The patient is tachypneic. She is still requiring high flow nasal cannula. Normal wears 4 liters at home. Have continued Mucinex. Appreciate pulmonary's input on this. She is currently awaiting to go on LTAC. 2. INTERSTITIAL PULMONARY FIBROSIS. Of course, steroids are not effective with this. Titrating daily. We will decrease again today. Continue supplemental O2 and appreciate pulmonary's support. 3. POSSIBLE LEFT LOWER LOBE PNEUMONIA. Given the patient had a low grade temperature and was diaphoretic, this is antibiotic day #1, will follow. 4. HIATAL HERNIA WITH SIGNIFICANT GASTROESOPHAGEAL REFLUX DISEASE. The patient is not an operative candidate at this time. Continue to alternate an H2 receptor jillian with PPI therapy. 5. HYPERTENSION. Continue home medicines. 6. INSOMNIA. Ambien as needed. 7. PULMONARY HYPERTENSION. The patient appears to be optivolemic. 8. DEPRESSION WITH ANXIETY. Continue home medication. 9. CHRONIC DIASTOLIC DYSFUNCTION. The patient does not have any evidence of overt failure. It does appear the patient does have some significant RV failure though. CODE STATUS: The patient is a full code. DISPOSITION: Depending on the patient's symptomatology and diagnostic findings will reevaluate in the a.m. TIME SPENT: On this follow up, including assessment and plan, physical examination, patient education, rule out of records is 35 minutes. DICTATING PHYSICIAN: SALINAS RESENDIZ NP [id number] PHY#: [id number] ID: [id number] JOB#: [id number] ACCT: [id number] cc: >
[2018-04-27] MEDS: FAMOTIDINE 20 MG TABLET PO SCH ×3 (00:52→23:37)
[2018-04-27] MEDS: PIPERACILLIN SODIUM/TAZOBACTAM 4.5 GM in NORMAL SALINE 100 ML IV SCH ×5 (00:56→23:30)
[2018-04-27] MEDS: HEPARIN SOD (PORCINE) 5,000 UNIT/ML 1 ML SYRINGE SUBCUT SCH ×3 (05:32→21:42)
[2018-04-27] MEDS: LANSOPRAZOLE 30 MG TAB.RAP.DR PO SCH ×2 (05:32→17:09)
[2018-04-27] MEDS: DULOXETINE HCL 30 MG CAPSULE.DR PO SCH ×2 (10:12→21:37)
[2018-04-27] MEDS: CARVEDILOL 12.5 MG TABLET PO SCH ×2 (10:12→21:37)
[2018-04-27] MEDS: GUAIFENESIN 600 MG TABLET.SA PO SCH ×2 (10:12→21:37)
[2018-04-27] MEDS: ALPRAZOLAM 0.5 MG TABLET PO PRN ×2 (10:12→21:40)
[2018-04-27] MEDS: PREDNISONE 20 MG TABLET PO SCH (10:12)
[2018-04-27] MEDS: GABAPENTIN 300 MG CAPSULE PO SCH ×2 (10:13→21:37)
[2018-04-27] MEDS: FERROUS SULFATE 325 MG TABLET PO SCH (10:13)
[2018-04-27] MEDS: TIOTROPIUM BROMIDE DPI 5 CAP/KIT (18 MCG/CAP) IH SCH (10:13)
[2018-04-27] MEDS: IPRATROPIUM BROMIDE 0.06% NASAL SPRAY 15 ML NASL SCH ×3 (10:16→17:09)
--- NOTE | 2018-04-27 17:22 | PDOC PROGRESS REPORT ---
Subjective Progress Note for:: 04/27/18 Subjective:: No adverse events overnight. No new complaints. She is on about 55% on heated high flow nasal cannula. She says she always feels better after antibiotics and so she wanted Dr. Corey to put her on an empiric antibiotic on a daily basis. Reason For Visit: RESPIRATORY FAILURE Physical Exam Vital Signs: Temp Pulse Resp BP Pulse Ox 97.6 F 81 20 82/46 L 96 04/27/18 15:55 04/27/18 15:55 04/27/18 15:55 04/27/18 15:55 04/27/18 15:55 Intake & Output 04/26/18 04/27/18 04/28/18 06:59 06:59 06:59 Intake Total 1025 1074 320 Output Total 665 1025 200 Balance 360 49 120 Weight 76.5 kg 77 kg General appearance: PRESENT: no acute distress, cooperative, disheveled, obese Respiratory exam: PRESENT: crackles - Bilateral upper lobes, bases are clear, the crackle sound dry light pulmonary fibrosis, decreased breath sounds, prolonged expiratory phas, symmetrical, unlabored. ABSENT: accessory muscle use , rales, rhonchi, tachypnea, wheezes Cardiovascular exam: PRESENT: RRR, +S1, +S2 Vascular exam: PRESENT: normal capillary refill GI/Abdominal exam: PRESENT: normal bowel sounds, soft. ABSENT: distended, guarding, rebound, tenderness Extremities exam: ABSENT: clubbing, pedal edema Musculoskeletal exam: PRESENT: normal inspection. ABSENT: deformity Neurological exam: PRESENT: alert, awake, oriented to person, oriented to place , oriented to time, oriented to situation Psychiatric exam: PRESENT: appropriate affect, normal mood Skin exam: PRESENT: dry, warm Results Laboratory Results: 04/25/18 04:55 04/25/18 04:55 Impressions: Chest CT 04/15/18 09:41 IMPRESSION: 1. Chronic changes of pulmonary fibrosis. 2. Previously noted faint ground-glass infiltrates have resolved. 3. Trace left pleural effusion, new. Chest X-Ray 04/25/18 00:00 IMPRESSION: Diffuse bilateral chronic interstitial fibrosis with left basilar pneumonia not excluded. Assessment & Plan - Diagnosis (1) Interstitial pulmonary fibrosis Is this a current diagnosis for this admission?: Yes Plan: We are trying to get her placed in the LTAC because she is probably going to require an extended course of oxygen weaning. (2) Acute hypoxemic respiratory failure Is this a current diagnosis for this admission?: Yes Plan: Continue oxygen supplementation for SPO2 greater than 90%. (3) Left lower lobe pneumonia Qualifiers: Pneumonia type: due to unspecified organism Qualified Code(s): J18.1 - Lobar pneumonia, unspecified organism Is this a current diagnosis for this admission?: Yes Plan: She was started back on antibiotics yesterday. Cultures are pending. - Time Time Spent with patient: 15-24 minutes
[2018-04-27] MEDS: IBUPROFEN 800 MG TABLET PO PRN (20:52)
[2018-04-27] MEDS: ZOLPIDEM TARTRATE 5 MG TABLET PO PRN (21:40)
[2018-04-28] MEDS: LANSOPRAZOLE 30 MG TAB.RAP.DR PO SCH ×2 (05:55→17:09)
[2018-04-28] MEDS: PIPERACILLIN SODIUM/TAZOBACTAM 4.5 GM in NORMAL SALINE 100 ML IV SCH ×4 (05:56→23:30)
[2018-04-28] MEDS: HEPARIN SOD (PORCINE) 5,000 UNIT/ML 1 ML SYRINGE SUBCUT SCH ×3 (05:57→21:38)
[2018-04-28] MEDS: GUAIFENESIN 600 MG TABLET.SA PO SCH ×2 (10:20→21:38)
[2018-04-28] MEDS: PROMETHAZINE HCL 25 MG TABLET PO PRN (10:20)
[2018-04-28] MEDS: PREDNISONE 20 MG TABLET PO SCH (10:20)
[2018-04-28] MEDS: DULOXETINE HCL 30 MG CAPSULE.DR PO SCH ×2 (10:20→21:38)
[2018-04-28] MEDS: ALPRAZOLAM 0.5 MG TABLET PO PRN ×2 (10:20→21:38)
[2018-04-28] MEDS: FERROUS SULFATE 325 MG TABLET PO SCH (10:20)
[2018-04-28] MEDS: CARVEDILOL 12.5 MG TABLET PO SCH ×2 (10:21→21:38)
[2018-04-28] MEDS: GABAPENTIN 300 MG CAPSULE PO SCH ×2 (10:21→21:38)
[2018-04-28] MEDS: IPRATROPIUM BROMIDE 0.06% NASAL SPRAY 15 ML NASL SCH ×3 (10:25→17:10)
[2018-04-28] MEDS: TIOTROPIUM BROMIDE DPI 5 CAP/KIT (18 MCG/CAP) IH SCH (10:26)
[2018-04-28] MEDS: FAMOTIDINE 20 MG TABLET PO SCH ×2 (11:31→23:30)
[2018-04-28] MEDS: IBUPROFEN 800 MG TABLET PO PRN (16:12)
--- NOTE | 2018-04-28 17:59 | PDOC PROGRESS REPORT ---
Subjective Progress Note for:: 04/28/18 Subjective:: No adverse events overnight. She told me a long story about how she had been on a beta-jillian for a long time. She also said she got short of breath her oxygen dropped when she went to get on the bedside commode earlier. She has if she could keep her Verduzco catheter and so she would not have to move so much because when she does so even on the heated high flow nasal cannula her oxygen levels dropped into the 70s. Reason For Visit: RESPIRATORY FAILURE Physical Exam Vital Signs: Temp Pulse Resp BP Pulse Ox 97.9 F 88 17 115/73 92 04/28/18 16:19 04/28/18 16:19 04/28/18 16:19 04/28/18 16:19 04/28/18 16:19 Intake & Output 04/27/18 04/28/18 04/29/18 06:59 06:59 06:59 Intake Total 1074 1160 300 Output Total 1025 1625 400 Balance 49 -465 -100 Weight 77 kg 77.5 kg General appearance: PRESENT: no acute distress, cooperative, disheveled, obese Respiratory exam: PRESENT: crackles - Bilateral upper lobes, bases are clear, the crackle sound dry light pulmonary fibrosis, decreased breath sounds, prolonged expiratory phas, symmetrical, unlabored. ABSENT: accessory muscle use , rales, rhonchi, tachypnea, wheezes Cardiovascular exam: PRESENT: RRR, +S1, +S2 Vascular exam: PRESENT: normal capillary refill GI/Abdominal exam: PRESENT: normal bowel sounds, soft. ABSENT: distended, guarding, rebound, tenderness Extremities exam: ABSENT: clubbing, pedal edema Musculoskeletal exam: PRESENT: normal inspection. ABSENT: deformity Neurological exam: PRESENT: alert, awake, oriented to person, oriented to place , oriented to time, oriented to situation Psychiatric exam: PRESENT: appropriate affect, normal mood Skin exam: PRESENT: dry, warm Results Laboratory Results: 04/25/18 04:55 04/25/18 04:55 Impressions: Chest CT 04/15/18 09:41 IMPRESSION: 1. Chronic changes of pulmonary fibrosis. 2. Previously noted faint ground-glass infiltrates have resolved. 3. Trace left pleural effusion, new. Chest X-Ray 04/25/18 00:00 IMPRESSION: Diffuse bilateral chronic interstitial fibrosis with left basilar pneumonia not excluded. Assessment & Plan - Diagnosis (1) Interstitial pulmonary fibrosis Is this a current diagnosis for this admission?: Yes Plan: We are trying to get her placed in the LTAC because she is probably going to require an extended course of oxygen weaning. (2) Acute hypoxemic respiratory failure Is this a current diagnosis for this admission?: Yes Plan: Continue oxygen supplementation for SPO2 greater than 90%. (3) Left lower lobe pneumonia Qualifiers: Pneumonia type: due to unspecified organism Qualified Code(s): J18.1 - Lobar pneumonia, unspecified organism Is this a current diagnosis for this admission?: Yes Plan: She was started back on antibiotics 2 days ago because her temperature was trending up. Cultures are pending. - Time Time Spent with patient: 15-24 minutes
[2018-04-28] MEDS: ZOLPIDEM TARTRATE 5 MG TABLET PO PRN (21:38)
[2018-04-29] MEDS: LANSOPRAZOLE 30 MG TAB.RAP.DR PO SCH ×2 (05:59→17:09)
[2018-04-29] MEDS: PIPERACILLIN SODIUM/TAZOBACTAM 4.5 GM in NORMAL SALINE 100 ML IV SCH ×4 (06:00→23:16)
[2018-04-29] MEDS: ALPRAZOLAM 0.5 MG TABLET PO PRN ×3 (06:00→21:22)
[2018-04-29] MEDS: HEPARIN SOD (PORCINE) 5,000 UNIT/ML 1 ML SYRINGE SUBCUT SCH ×3 (06:01→21:21)
[2018-04-29] MEDS: IBUPROFEN 800 MG TABLET PO PRN ×2 (06:03→21:03)
[2018-04-29] MEDS: DULOXETINE HCL 30 MG CAPSULE.DR PO SCH ×2 (10:30→21:22)
[2018-04-29] MEDS: FERROUS SULFATE 325 MG TABLET PO SCH (10:30)
[2018-04-29] MEDS: CARVEDILOL 12.5 MG TABLET PO SCH ×2 (10:30→21:22)
[2018-04-29] MEDS: GABAPENTIN 300 MG CAPSULE PO SCH ×2 (10:30→21:22)
[2018-04-29] MEDS: PREDNISONE 20 MG TABLET PO SCH (10:31)
[2018-04-29] MEDS: IPRATROPIUM BROMIDE 0.06% NASAL SPRAY 15 ML NASL SCH ×4 (10:31→18:15)
[2018-04-29] MEDS: TIOTROPIUM BROMIDE DPI 5 CAP/KIT (18 MCG/CAP) IH SCH (10:31)
[2018-04-29] MEDS: GUAIFENESIN 600 MG TABLET.SA PO SCH ×2 (10:31→21:22)
[2018-04-29] MEDS: FAMOTIDINE 20 MG TABLET PO SCH ×2 (11:32→23:16)
--- NOTE | 2018-04-29 17:19 | PDOC PROGRESS REPORT ---
Subjective Progress Note for:: 04/29/18 Subjective:: No adverse events overnight. Today she was moving around some of her oxygen was dropped and we had to cut up the FiO2 on the heated high flow nasal cannula to try to get her SPO2 back up. She was sitting there staring at the continuous pulse oximeter and when it did not show an abrupt rise in her SPO2 she began to get more anxious so we just took pulse oximeter out of the room. Reason For Visit: RESPIRATORY FAILURE Physical Exam Vital Signs: Temp Pulse Resp BP Pulse Ox 98.3 F 83 17 110/58 L 90 L 04/29/18 16:38 04/29/18 16:38 04/29/18 16:38 04/29/18 16:38 04/29/18 16:38 Intake & Output 04/28/18 04/29/18 04/30/18 06:59 06:59 06:59 Intake Total 1160 800 200 Output Total 1625 1225 100 Balance -465 -425 100 Weight 77.5 kg 77 kg General appearance: PRESENT: no acute distress, cooperative, disheveled, obese Respiratory exam: PRESENT: crackles - Bilateral upper lobes, bases are clear, the crackles sound dry like pulmonary fibrosis, decreased breath sounds, prolonged expiratory phase, symmetrical, unlabored. ABSENT: accessory muscle use, rales, rhonchi, tachypnea, wheezes Cardiovascular exam: PRESENT: RRR, +S1, +S2 Vascular exam: PRESENT: normal capillary refill GI/Abdominal exam: PRESENT: normal bowel sounds, soft. ABSENT: distended, guarding, rebound, tenderness Extremities exam: ABSENT: clubbing, pedal edema Musculoskeletal exam: PRESENT: normal inspection. ABSENT: deformity Neurological exam: PRESENT: alert, awake, oriented to person, oriented to place , oriented to time, oriented to situation Psychiatric exam: PRESENT: appropriate affect, normal mood Skin exam: PRESENT: dry, warm Results Laboratory Results: 04/25/18 04:55 04/25/18 04:55 Impressions: Chest CT 04/15/18 09:41 IMPRESSION: 1. Chronic changes of pulmonary fibrosis. 2. Previously noted faint ground-glass infiltrates have resolved. 3. Trace left pleural effusion, new. Chest X-Ray 04/25/18 00:00 IMPRESSION: Diffuse bilateral chronic interstitial fibrosis with left basilar pneumonia not excluded. Assessment & Plan - Diagnosis (1) Interstitial pulmonary fibrosis Is this a current diagnosis for this admission?: Yes Plan: We are trying to get her placed in the LTAC because she is probably going to require an extended course of oxygen weaning. Some issue with her insurance is been the root of the problem in terms of getting her disposition. Case management is been working very hard to get her placed. (2) Acute hypoxemic respiratory failure Is this a current diagnosis for this admission?: Yes Plan: Continue oxygen supplementation for SPO2 greater than 90%. This is actually probably acute on chronic hypoxemic respiratory failure. (3) Left lower lobe pneumonia Qualifiers: Pneumonia type: due to unspecified organism Qualified Code(s): J18.1 - Lobar pneumonia, unspecified organism Is this a current diagnosis for this admission?: Yes Plan: She was started back on antibiotics 3 days ago because her temperature was trending up. Cultures are pending. She has been afebrile. - Time Time Spent with patient: 15-24 minutes
[2018-04-29] MEDS: ZOLPIDEM TARTRATE 5 MG TABLET PO PRN (21:23)
[2018-04-30] MEDS: ALPRAZOLAM 0.5 MG TABLET PO PRN (05:30)
[2018-04-30] MEDS: PIPERACILLIN SODIUM/TAZOBACTAM 4.5 GM in NORMAL SALINE 100 ML IV SCH ×3 (06:00→17:31)
[2018-04-30 07:26] LABS: ARTERIAL BLOOD BASE EXCESS -0.1 mmol/L; ARTERIAL BLOOD HCO3 24.5 mmol/L (20-24); ARTERIAL BLOOD PCO2 39.9 mmHg (35-45); ARTERIAL BLOOD PH 7.41 (7.35-7.45); ARTERIAL BLOOD PO2 73.8 mmHg (80-100); ARTERIAL BLOOD TOTAL CO2 25.7 mmol/L (21-25)
[2018-04-30 07:27] LABS: ARTERIAL BLOOD FIO2 100%
--- NOTE | 2018-04-30 07:30 | RADIOLOGY REPORT (SQ) ---
EXAM DESCRIPTION: XR CHEST 1 VIEW COMPLETED DATE/TME: 04/30/2018 00:00 CLINICAL HISTORY: 68 years, Female, DIFF BREATHING COMPARISON: 04/25/2018 NUMBER OF VIEWS: One TECHNIQUE: AP view of the chest LIMITATIONS: None. FINDINGS: There is mild worsening of the diffuse interstitial and airspace opacities, particularly along the right upper lobe. The heart size is stable. Small pleural effusions may be present. There is no pneumothorax. The bones are unchanged. IMPRESSION: Mild worsening of the diffuse interstitial and airspace opacities, particularly along the right upper lobe. This may represent worsening edema and/or pneumonia. copyright 2010 [employer]- All Rights Reserved
[2018-04-30] MEDS: HEPARIN SOD (PORCINE) 5,000 UNIT/ML 1 ML SYRINGE SUBCUT SCH ×2 (07:49→15:18)
[2018-04-30] MEDS: LANSOPRAZOLE 30 MG TAB.RAP.DR PO SCH ×2 (07:49→18:04)
[2018-04-30 08:51] LABS: HEMOGLOBIN 10.8 g/dL (12.0-15.5); MEAN CORPUSCULAR HEMOGLOBIN 29.4 pg (27.0-33.4); MEAN CORPUSCULAR HGB CONC 32.7 g/dL (32.0-36.0); MEAN CORPUSCULAR VOLUME 90 fl (80-97); PLATELET COUNT 259 10^3/uL (150-450); RED BLOOD COUNT 3.66 10^6/uL (3.72-5.28); RED CELL DISTRIBUTION WIDTH 16.6 % (11.5-14.0); WHITE BLOOD COUNT 9.9 10^3/uL (4.0-10.5)
[2018-04-30] MEDS ORDERED: PROPOFOL 1,000 MG/100 ML INFUS..BTL IV ONE (08:58)
[2018-04-30 09:11] LABS: ANION GAP 6 (5-19); BLOOD UREA NITROGEN 19 mg/dL (7-20); CALCIUM 9.1 mg/dL (8.4-10.2); CARBON DIOXIDE 31 mmol/L (22-30); CHLORIDE 102 mmol/L (98-107); GLUCOSE 103 mg/dL (75-110); POTASSIUM 3.9 mmol/L (3.6-5.0); SODIUM 138.5 mmol/L (137-145)
[2018-04-30] MEDS ORDERED: PROPOFOL INJ 200 MG/20 ML VIAL IV ONE (09:24)
[2018-04-30] MEDS ORDERED: NORMAL SALINE 500 ML with ROCURONIUM BROMIDE 500 MG IV PRN ×2 (09:39)
--- NOTE | 2018-04-30 09:59 | RADIOLOGY REPORT (SQ) ---
EXAM DESCRIPTION: CHEST SINGLE VIEW COMPLETED DATE/TIME: 04/30/2018 9:46 am REASON FOR STUDY: ET Tube Placement/NG placement COMPARISON: None. EXAM PARAMETERS: NUMBER OF VIEWS: One view. TECHNIQUE: Single frontal radiographic view of the chest acquired. RADIATION DOSE: NA LIMITATIONS: None. FINDINGS: LUNGS AND PLEURA: Stable chest with diffuse bilateral airspace disease, greatest within th e left lung base. Small left pleural effusion. No appreciable pneumothorax. MEDIASTINUM AND HILAR STRUCTURES: Stable. HEART AND VASCULAR STRUCTURES: Enlarged heart, stable. BONES: No acute bony abnormality. Thoracolumbar spondylosis. HARDWARE: Endotracheal tube tip overlies right mainstem bronchus. Enteric tube cold over stomach wit h distal tip overlying GE junction. OTHER: No other significant finding. IMPRESSION: 1. Endotracheal tube tip overlies right mainstem bronchus. Consider retraction by 2 cm . 2. Enteric tube cold over stomach with distal tip at GE junction. Consider retraction by 5 to 10 cm . 3. Grossly stable diffuse bilateral interstitial and alveolar opacities, greatest in the left lung b ase. TECHNICAL DOCUMENTATION: JOB ID: [id number] [employer]- All Rights Reserved Reading location - IP/workstation name: [email or web address]
[2018-04-30] MEDS ORDERED: LIDOCAINE 1% INJ-PF (10 MG/ML) 30 ML SDV ONE (10:19)
[2018-04-30] MEDS ORDERED: MIDAZOLAM HCL 50 MG/100 ML RTUINJ ONE (11:03)
--- NOTE | 2018-04-30 11:10 | PDOC PROGRESS REPORT ---
Subjective Progress Note for:: 04/30/18 Subjective:: Unchanged over the last 24 hours Reason For Visit: RESPIRATORY FAILURE Physical Exam Vital Signs: Temp Pulse Resp BP Pulse Ox 97.6 F 98 42 H 109/65 97 04/30/18 07:34 04/30/18 07:34 04/30/18 07:34 04/30/18 07:34 04/30/18 07:34 Intake & Output 04/29/18 04/30/18 05/01/18 06:59 06:59 06:59 Intake Total 800 637 102 Output Total 1225 1000 Balance -425 -363 102 Weight 77 kg 77.2 kg General appearance: PRESENT: disheveled, obese Head exam: PRESENT: atraumatic, normocephalic Eye exam: PRESENT: conjunctiva pale, EOMI. ABSENT: nystagmus, scleral icterus Mouth exam: PRESENT: dry mucosa, neck supple, tongue midline, other Neck exam: ABSENT: carotid bruit, JVD, lymphadenopathy, thyromegaly, tracheal deviation, tracheostomy Respiratory exam: PRESENT: crackles, decreased breath sounds, prolonged expiratory phas, retraction, rhonchi, symmetrical, tachypnea, wheezes. ABSENT: stridor, unlabored Cardiovascular exam: PRESENT: RRR, +S1, +S2 Pulses: PRESENT: normal radial pulses GI/Abdominal exam: PRESENT: soft. ABSENT: tenderness Gentrourinary exam: PRESENT: indwelling catheter Extremities exam: ABSENT: calf tenderness, clubbing, tenderness Musculoskeletal exam: ABSENT: ambulatory, deformity, dislocation Neurological exam: PRESENT: alert, awake Psychiatric exam: PRESENT: appropriate affect Skin exam: PRESENT: dry, warm Results Laboratory Results: 04/30/18 08:21 04/30/18 08:21 04/30/18 04/30/18 04/30/18 06:10 08:21 08:21 WBC 9.9 RBC 3.66 L Hgb 10.8 L Hct 33.0 L MCV 90 MCH 29.4 MCHC 32.7 RDW 16.6 H Plt Count 259 Carbonic Acid 1.20 HCO3/H2CO3 Ratio 20:1 ABG pH 7.41 ABG pCO2 39.9 ABG pO2 73.8 L ABG HCO3 24.5 H ABG O2 Saturation 95.0 ABG Base Excess -0.1 FiO2 100% Sodium 138.5 Potassium 3.9 Chloride 102 Carbon Dioxide 31 H Anion Gap 6 BUN 19 Creatinine 0.68 Est GFR ( Amer) > 60 Est GFR (Non-Af Amer) > 60 Glucose 103 Calcium 9.1 Triglycerides 04/30/18 08:21 WBC RBC Hgb Hct MCV MCH MCHC RDW Plt Count Carbonic Acid HCO3/H2CO3 Ratio ABG pH ABG pCO2 ABG pO2 ABG HCO3 ABG O2 Saturation ABG Base Excess FiO2 Sodium Potassium Chloride Carbon Dioxide Anion Gap BUN Creatinine Est GFR ( Amer) Est GFR (Non-Af Amer) Glucose Calcium Triglycerides 149 04/14/18 04/14/18 11:10 11:10 Troponin I 0.103 NT-Pro-B Natriuret Pep 00919 H Impressions: Chest CT 04/15/18 09:41 IMPRESSION: 1. Chronic changes of pulmonary fibrosis. 2. Previously noted faint ground-glass infiltrates have resolved. 3. Trace left pleural effusion, new. Chest X-Ray 04/30/18 09:27 IMPRESSION: 1. Endotracheal tube tip overlies right mainstem bronchus. Consider retraction by 2 cm. 2. Enteric tube cold over stomach with distal tip at GE junction. Consider retraction by 5 to 10 cm. 3. Grossly stable diffuse bilateral interstitial and alveolar opacities, greatest in the left lung base. Assessment & Plan - Diagnosis (1) Acute respiratory failure Qualifiers: Respiratory failure complication: unspecified whether with hypoxia or hypercapnia Qualified Code(s): J96.00 - Acute respiratory failure, unspecified whether with hypoxia or hypercapnia Is this a current diagnosis for this admission?: Yes Plan: rr 45-50 ICU intubate (2) GERD (gastroesophageal reflux disease) Is this a current diagnosis for this admission?: Yes Plan: Long-standing chronic large hernia and gastric content in thoracic cavity (3) Interstitial pulmonary fibrosis Is this a current diagnosis for this admission?: Yes Plan: 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
[2018-04-30] MEDS: IPRATROPIUM BROMIDE 0.06% NASAL SPRAY 15 ML NASL SCH ×3 (11:13→18:03)
[2018-04-30] MEDS: CARVEDILOL 12.5 MG TABLET PO SCH (11:13)
[2018-04-30] MEDS: DULOXETINE HCL 30 MG CAPSULE.DR PO SCH (11:13)
--- NOTE | 2018-04-30 11:14 | Operative Report ---
Operative Report DATE OF SURGERY: 04/30/18 Operative Report: intubated difficult to find artery multiple attempts and bp volatile PREOPERATIVE DIAGNOSIS: acute resp failure POSTOPERATIVE DIAGNOSIS: same OPERATION: R femoral a-line SURGEON: KATY SNYDER ANESTHESIA: GA COMPLICATIONS: 0 ESTIMATED BLOOD LOSS: < 5ml
[2018-04-30] MEDS: GABAPENTIN 300 MG CAPSULE PO SCH (11:21)
[2018-04-30] MEDS: MIDAZOLAM HCL 50 MG/100 ML RTUINJ IV PRN ×2 (11:21→17:36)
[2018-04-30] MEDS: TIOTROPIUM BROMIDE DPI 5 CAP/KIT (18 MCG/CAP) IH SCH (11:21)
[2018-04-30] MEDS: GUAIFENESIN 600 MG TABLET.SA PO SCH (11:21)
[2018-04-30] MEDS: PREDNISONE 20 MG TABLET PO SCH (11:21)
[2018-04-30] MEDS: FERROUS SULFATE 325 MG TABLET PO SCH (11:21)
[2018-04-30 11:24] LABS: ARTERIAL BLOOD BASE EXCESS -7.3 mmol/L; ARTERIAL BLOOD H2CO3 1.32 mmol/L (1.05-1.35); ARTERIAL BLOOD HCO3 19.3 mmol/L (20-24); ARTERIAL BLOOD O2 SATURATION 96.6 % (94-98); ARTERIAL BLOOD PH 7.26 (7.35-7.45); ARTERIAL BLOOD PO2 98.8 mmHg (80-100); ARTERIAL BLOOD TOTAL CO2 20.7 mmol/L (21-25)
[2018-04-30 11:26] LABS: ARTERIAL BLOOD FIO2 100%
[2018-04-30] MEDS ORDERED: ROCURONIUM BROMIDE INJ 50 MG/5 ML VIAL IV ONE ×2 (12:00→14:39)
[2018-04-30] MEDS ORDERED: NOREPINEPHRINE BITARTRATE INJ/PF 4 MG/4 ML SDV IV ONE (12:29)
[2018-04-30] MEDS: DEXTROSE 5%-WATER 250 ML with NOREPINEPHRINE BITARTRATE 4 MG IV PRN ×6 (12:30→22:14)
[2018-04-30] MEDS ORDERED: PHENYLEPHRINE HCL INJ/PF 10 MG/1 ML SDV ONE (13:01)
[2018-04-30] MEDS: DEXTROSE 5%-WATER 250 ML with PHENYLEPHRINE HCL 40 MG IV PRN ×6 (13:04→22:12)
[2018-04-30 13:07] LABS: INTERNATIONAL RATION (INR) 1.15; PARTIAL THROMBOPLASTIN TIME 35.6 SEC (23.5-35.8); PROTHROMBIN TIME 15.3 SEC (11.4-15.4)
[2018-04-30 13:45] LABS: BLOOD UREA NITROGEN 18 mg/dL (7-20); CALCIUM 8.9 mg/dL (8.4-10.2); CHLORIDE 104 mmol/L (98-107); GLUCOSE 273 mg/dL (75-110); SODIUM 137.7 mmol/L (137-145)
[2018-04-30] MEDS ORDERED: SUCCINYLCHOLINE CHLORIDE INJ 200 MG/10 ML VIAL ONE (13:49)
[2018-04-30 14:06] LABS: ANION GAP 14 (5-19)
[2018-04-30 14:09] LABS: CARBON DIOXIDE 20 mmol/L (22-30); POTASSIUM 5.7 mmol/L (3.6-5.0)
[2018-04-30 14:47] LABS: ARTERIAL BLOOD BASE EXCESS -7.6 mmol/L; ARTERIAL BLOOD H2CO3 2.02 mmol/L (1.05-1.35); ARTERIAL BLOOD HCO3 22.2 mmol/L (20-24); ARTERIAL BLOOD O2 SATURATION 95.2 % (94-98); ARTERIAL BLOOD PCO2 67.2 mmHg (35-45); ARTERIAL BLOOD TOTAL CO2 24.2 mmol/L (21-25)
[2018-04-30] MEDS ORDERED: CALCIUM CHLORIDE 10% PF/INJ 1000 MG/10 ML SDV IV ONE (14:48)
[2018-04-30 14:51] LABS: ARTERIAL BLOOD FIO2 100%
[2018-04-30 14:52] LABS: ARTERIAL BLOOD PH 7.14 (7.35-7.45)
[2018-04-30] MEDS: FAMOTIDINE 20 MG TABLET PO SCH (15:14)
[2018-04-30 16:44] VITALS: BP 63/22
--- NOTE | 2018-04-30 17:02 | RADIOLOGY REPORT (SQ) ---
EXAM DESCRIPTION: CHEST SINGLE VIEW COMPLETED DATE/TIME: 04/30/2018 4:38 pm REASON FOR STUDY: Central Line Placement COMPARISON: CT chest 04/15/2018 AP chest 04/30/2018, 04/16/2018, 01/28/2018 EXAM PARAMETERS: NUMBER OF VIEWS: One view. TECHNIQUE: Single frontal radiographic view of the chest acquired. RADIATION DOSE: NA LIMITATIONS: None. FINDINGS: LUNGS AND PLEURA: Diffuse lung parenchymal consolidation around the periphery of both lung s is new compared to previous studies. Findings could represent edema or pneumonia superimposed on u nderlying advanced pulmonary fibrosis No pneumothorax. No gross pleural effusions. MEDIASTINUM AND HILAR STRUCTURES: No masses. HEART AND VASCULAR STRUCTURES: Moderate cardiomegaly BONES: No acute findings. HARDWARE: Endotracheal tube tip 4 cm above the inna. Nasogastric tube tip and side-port coiled in the stomach. Right subclavian triple lumen catheter tip in the right atrium. Old surgical clips lef t breast. Clips right upper quadrant post cholecystectomy OTHER: No other significant finding. IMPRESSION: No pneumothorax post right central line placement with the tip of the catheter in the ri ght atrium TECHNICAL DOCUMENTATION: JOB ID: [id number] [employer]- All Rights Reserved Reading location - IP/workstation name: [email or web address]
[2018-04-30 17:25] LABS: HEMATOCRIT 33.2 % (36.0-47.0); HEMOGLOBIN 10.3 g/dL (12.0-15.5); MEAN CORPUSCULAR HEMOGLOBIN 29.2 pg (27.0-33.4); MEAN CORPUSCULAR HGB CONC 30.9 g/dL (32.0-36.0); PLATELET COUNT 168 10^3/uL (150-450); RED BLOOD COUNT 3.52 10^6/uL (3.72-5.28); RED CELL DISTRIBUTION WIDTH 16.5 % (11.5-14.0); WHITE BLOOD COUNT 15.2 10^3/uL (4.0-10.5)
[2018-04-30 17:29] LABS: MEAN CORPUSCULAR VOLUME 95 fl (80-97)
[2018-04-30 17:52] LABS: ABSOLUTE MONOCYTES # (MANUAL) 0.9 10^3/uL (0.1-1.4); ABSOLUTE NEUTROPHILS# (MANUAL) 12.2 10^3/uL (1.7-8.2); ANISOCYTOSIS 1+; BAND NEUTROPHILS % (MANUAL) 2 % (3-5); BASOPHILS % (MANUAL) 0 % (0-2); EOSINOPHILS % (MANUAL) 1 % (0-6); LYMPHOCYTES % (MANUAL) 13 % (13-45); MONOCYTES % (MANUAL) 6 % (3-13); PLATELET COMMENT ADEQUATE; POIKILOCYTOSIS SLIGHT; SEGMENTED NEUTROPHILS % (MAN) 78 % (42-78); TOTAL CELLS COUNTED 100; TOXIC GRANULATION SLIGHT
[2018-04-30 18:00] LABS: ARTERIAL BLOOD BASE EXCESS -12.6 mmol/L; ARTERIAL BLOOD H2CO3 0.95 mmol/L (1.05-1.35); ARTERIAL BLOOD HCO3 13.5 mmol/L (20-24); ARTERIAL BLOOD O2 SATURATION 98.2 % (94-98); ARTERIAL BLOOD PCO2 31.5 mmHg (35-45); ARTERIAL BLOOD PH 7.25 (7.35-7.45); ARTERIAL BLOOD PO2 129.3 mmHg (80-100); ARTERIAL BLOOD TOTAL CO2 14.4 mmol/L (21-25)
[2018-04-30 18:06] LABS: ARTERIAL BLOOD FIO2 100%
--- NOTE | 2018-04-30 18:43 | EKG REPORT ---
SEVERITY:- BORDERLINE ECG - FAST SINUS ARRHYTHMIA, RATE 78-124 PROBABLE LEFT ATRIAL ABNORMALITY RBBB NONSPECIFIC ST-T CHANGES LATERAL LEADS : Confirmed by: Julián Cardoza MD 30-Apr-2018 18:42:40
[2018-04-30] MEDS ORDERED: VANCOMYCIN HCL 0 MG in DEXTROSE 5%-WATER 250 ML IV NR (19:00)
[2018-04-30] MEDS ORDERED: ACETAMINOPHEN 325 MG TABLET NG PRN (19:30)
[2018-04-30] MEDS ORDERED: GUAIFENESIN SYRP 200 MG/10 ML UDC NG PRN (19:30)
[2018-04-30] MEDS ORDERED: SIMETHICONE 80 MG TAB.CHEW NG PRN (19:30)
[2018-04-30] MEDS ORDERED: ZOLPIDEM TARTRATE 5 MG TABLET NG PRN (19:30)
[2018-04-30] MEDS ORDERED: ALPRAZOLAM 0.5 MG TABLET NG PRN (19:30)
[2018-04-30] MEDS ORDERED: PROMETHAZINE HCL 25 MG TABLET NG PRN (19:30)
[2018-04-30] MEDS ORDERED: IBUPROFEN 800 MG TABLET NG PRN (19:30)
[2018-04-30] MEDS ORDERED: NORMAL SALINE 1000 ML 1,000 ML IV ONE (20:00)
--- NOTE | 2018-04-30 20:08 | PDOC TRANSFER SUMMARY ---
General Admission Date/PCP: 04/14/18 13:34 JUAN ANTONIO MADERA Admission Date: 04/14/18 Transfer Date: 04/30/18 Accepting Facility: [facility] Accepting Physician: Dr. Mccloud Resuscitation Status: Full Code - Transfer Diagnosis (1) Acute respiratory failure Is this a current diagnosis for this admission?: Yes Diagnosis Summary: The patient experienced an acute decline in her condition today. Her knockup worker Dr. Corey was in fact seeing her. She is a full code and so the decision was made to intubate the patient. The leading diagnosis is a pneumonia superimposed on her bilateral pulmonary fibrosis. It is unlikely that there is a component of congestive heart failure since her ejection fraction was 60%. There was no evidence of gross diastolic dysfunction. There was a question of hypertrophic subaortic stenosis with outflow tract stenosis but it appears that infection is the primary cause of her failure. The patient was intubated and because of the lack of elasticity in her lungs she was having high peak pressures. Dr. Morel tried to keep the tidal volume low to avoid causing a pneumothorax. At this time her PCO2 is down and so I am going to decrease the rate. (2) Septic shock Is this a current diagnosis for this admission?: Yes Diagnosis Summary: The patient had been stable over the last week or so. She acutely deteriorated earlier today. Dr. Corey intubated the patient. A right subclavian central line and right femoral arterial line were placed today as well. Her chest x-ray today showed the underlying interstitial lung disease with likely pneumonia in the left lower lobe. It could be bilateral as it is difficult to know with her bilateral pulmonary fibrosis. She does have a history of congestive failure and left pleural effusion. She now requires vasopressors and is currently on Rodrick-Synephrine and Levophed for pressure support. She is on rocuronium as well. She is getting a fluid bolus at this time as well. The likely source is a new pneumonia. There is evidence of an infiltrate superimposed on the pulmonary fibrosis. (3) Pulmonary fibrosis Is this a current diagnosis for this admission?: Yes Diagnosis Summary: The patient has recently been diagnosed with pulmonary fibrosis. I believe she had a biopsy in [place]. Dr. Corey from pulmonology has been following her as well. She had been stable but exhibited a marked decline in her condition earlier today. We believe that this is sepsis from a left lower lobe pneumonia that has recently developed. (4) Pneumonia due to aerobic bacteria Is this a current diagnosis for this admission?: Yes Diagnosis Summary: The patient has been hospitalized since April 14. At that time her primary diagnosis was congestive heart failure superimposed on her pulmonary fibrosis. She did have a left pleural effusion that was drained. Today she experienced significantly increased respiratory distress with subsequent respiratory failure. She was intubated. At that time an endotracheal aspirate was sent for culture. Chest x-rays to check the endotracheal tube and central line did revea l a new left lower lobe infiltrate. Because she has been in the hospital for 2 weeks with a hospital-acquired pneumonia is most likely. Pseudomonas is certainly a significant consideration. She is on Zosyn and vancomycin currently. Unfortunately she is experiencing septic shock and requires vaso pressors. See above. (5) Cardiomyopathy Is this a current diagnosis for this admission?: Yes Diagnosis Summary: The patient did have an echocardiogram early in her admission. Her ejection fraction was 60%. She had enlarged right atrium and right ventricle that were not well visualized. There was a question of hypertrophic subaortic stenosis. The left ventricular outflow tract gradient was approximated at 80 mmHg but the images were not that clearance so this is an estimation. Right ventricular systolic pressure was estimated at 55. Patient did have a pleural effusion on the left with congestive failure initially at admission. I believe she had a thoracentesis and was diuresed and was actually feeling better temporarily. (6) Hiatal hernia with GERD Is this a current diagnosis for this admission?: Yes Diagnosis Summary: Patient has a history of hiatal hernia with reflux. She has been on Prevacid during her hospitalization. (7) Hyperkalemia Is this a current diagnosis for this admission?: Yes Diagnosis Summary: The patient's serum potassium was elevated today at 5.7. She is receiving IV fluids and this will likely help. She may also need to be diuresed after fluid boluses. We will continue to monitor the potassium. (8) Hypermagnesemia Is this a current diagnosis for this admission?: Yes Diagnosis Summary: Serum magnesium was elevated today at 2.6. She is not on any magnesium supplements. She is getting IV fluids. We will continue to monitor her magnesium. - Transfer Medications Home Medications: Propranolol HCl 40 mg PO Q8 12/08/13 Alprazolam [Xanax] 1 mg PO BIDP PRN 11/29/17 Duloxetine HCl [Cymbalta] 30 mg PO Q12 11/29/17 Gabapentin [Neurontin 300 mg Capsule] 300 mg PO Q12 11/29/17 Zolpidem Tartrate [Ambien 5 mg Tablet] 10 mg PO HSP PRN 11/29/17 Esomeprazole Magnesium [Nexium 24Hr] 20 mg PO DAILY 04/14/18 Ferrous Sulfate [Feosol] 325 mg PO DAILY 04/14/18 Ipratropium Virden [Atrovent 0.06% Nasal Kerrick] 2 spray NASL TID 04/14/18 Melatonin [Melatonin 3 mg Tablet] 3 mg PO QHS 04/14/18 Naproxen Sodium [Naprelan] 500 mg PO BID 04/14/18 Promethazine HCl [Phenergan 25 mg Tablet] 25 mg PO Q4HP PRN 04/14/18 Transfer Medications: Current Medications Acetaminophen (Tylenol 325 Mg Tablet) 650 mg NG Q4HP PRN PRN Reason: pain or temp greater than 101F Stop: 05/14/18 13:11 Albuterol/Ipratropium (Duoneb 3 Ml Ampul) 3 ml NEB RTQ6HP PRN PRN Reason: SHORTNESS OF BREATH Stop: 05/14/18 13:14 Alprazolam (Xanax 0.5 Mg Tablet) 0.5 mg NG Q8HP PRN PRN Reason: FOR ANXIETY Stop: 05/05/18 18:09 Carvedilol (Coreg 12.5 Mg Tablet) 6.25 mg NG Q12 [facility] Stop: 05/24/18 11:44 Duloxetine HCl (Cymbalta 30 Mg Capsule.) 30 mg PO Q12 [facility] Stop: 05/15/18 21:59 Last Admin: 04/30/18 11:13 Dose: Not Given Documented by: Famotidine (Pepcid 20 Mg Tablet) 20 mg NG Q12@1200,0000 [facility] Stop: 05/23/18 11:59 Ferrous Sulfate (Feosol 325 Mg Tablet) 325 mg PO DAILY [facility] Stop: 05/16/18 09:59 Last Admin: 04/30/18 11:21 Dose: Not Given Documented by: Gabapentin (Neurontin 300 Mg Capsule) 300 mg NG Q12 [facility] Stop: 05/15/18 21:59 Guaifenesin (Mucinex Sr 600 Mg Tablet.Sa) 600 mg PO Q12 [facility] Stop: 05/15/18 21:59 Last Admin: 04/30/18 11:21 Dose: Not Given Documented by: Guaifenesin (Robitussin Syrup 200 Mg/10 Ml Ud Cup) 200 mg NG Q6HP PRN PRN Reason: COUGH Stop: 05/14/18 13:14 Heparin Sodium (Porcine) (Heparin Inj 5,000 Units/Ml 1 Ml Syringe) 5,000 unit SUBCUT Q8 [facility] Stop: 05/14/18 13:59 Last Admin: 04/30/18 15:18 Dose: Not Given Documented by: Heparin Sodium (Porcine) (Heparin Flush 10 Unit/Ml 5 Ml Disp.Syrg) 30 unit IV Q8 [facility] Stop: 05/31/18 05:59 Heparin Sodium (Porcine) (Heparin Flush 10 Unit/Ml 5 Ml Disp.Syrg) 30 unit IV .AFTER EACH USE PRN PRN Reason: AFTER EACH INTERMITTENT USE Stop: 05/30/18 16:32 Piperacillin Sod/Tazobactam (Sod 4.5 gm/ Sodium Chloride) 100 mls @ 200 mls/hr IV Q6 [facility] Stop: 05/02/18 17:59 Last Infusion: 04/30/18 18:04 Dose: Infused Documented by: Rocuronium Virden 500 mg/ (Sodium Chloride) 500 mls @ 0 mls/hr IV CONTINUOUS PRN; Protocol PRN Reason: THIS MED IS NOT "PRN" Stop: 05/30/18 09:38 Last Titration: 04/30/18 18:04 Dose: 2 mcg/kg/min, 9.26 mls/hr Documented by: Midazolam HCl (Versed Rtu 50 Mg/100 Ml Premix Bag) 50 mg in 100 mls @ 0 mls/hr IV CONTINUOUS PRN; Protocol PRN Reason: THIS MED IS NOT "PRN" Stop: 05/07/18 11:07 Last Admin: 04/30/18 17:36 Dose: 6 ml/hr, 6 mls/hr Documented by: Norepinephrine Bitartrate 4 mg (/ Dextrose) 250 mls @ 0 mls/hr IV CONTINUOUS PRN; Protocol PRN Reason: THIS MED IS NOT "PRN" Stop: 05/30/18 13:04 Last Admin: 04/30/18 17:35 Dose: 12 mcg/min, 45 mls/hr Documented by: Hard Fat/Phenylephrine 40 mg/ (Dextrose) 250 mls @ 0 mls/hr IV CONTINUOUS PRN; Protocol PRN Reason: THIS MED IS NOT "PRN" Stop: 05/30/18 13:40 Last Titration: 04/30/18 18:04 Dose: 50 mcg/min, 18.75 mls/hr Documented by: Vancomycin HCl / Dextrose 250 mls @ 0 mls/hr IV .PHARMACY TO DOSE NR Stop: 05/07/18 18:59 Sodium Chloride (Nacl 0.9% 1000 Ml Iv Soln) 1,000 mls @ 0 mls/hr IV BOLUS ONE Stop: 04/30/18 18:58 Ibuprofen (Motrin 800 Mg Tablet) 800 mg NG Q6HP PRN PRN Reason: FOR PAIN Stop: 05/22/18 19:32 Influenza Virus Vaccine Quadrival (Fluarix Adlt Quad Vac 0.5 Ml Syr) 0.5 ml IM .DISCHARGE PRN PRN Reason: THIS MED IS NOT "PRN" Stop: 05/14/18 15:24 Ipratropium Virden (Atrovent 0.06% Nasal Kerrick) 2 spray NASL TID [facility] Stop: 05/16/18 17:59 Last Admin: 04/30/18 18:03 Dose: Not Given Documented by: Lansoprazole (Prevacid 30 Mg Odt Tablet) 30 mg PO BID@0600,1800 [facility] Stop: 05/23/18 17:59 Last Admin: 04/30/18 18:04 Dose: Not Given Documented by: Prednisone (Deltasone 20 Mg Tablet) 20 mg PO DAILY [facility] Stop: 05/27/18 09:59 Last Admin: 04/30/18 11:21 Dose: Not Given Documented by: Promethazine HCl (Phenergan 25 Mg Tablet) 12.5 mg PO Q6HP PRN PRN Reason: NAUSEA/VOMITING Stop: 05/19/18 20:56 Last Admin: 04/28/18 10:20 Dose: 12.5 mg Documented by: Simethicone (Mylicon 80 Mg Chewable Tablet) 80 mg PO QIDP PRN PRN Reason: FOR GAS (FLATULENCE) Stop: 05/22/18 13:32 Sodium Chloride (Saline Flush 2.5 Ml Monoject Prefil Syrin) 2.5 ml IV Q8 [facility] Stop: 05/14/18 13:59 Last Admin: 04/30/18 15:18 Dose: Not Given Documented by: Tiotropium Virden (Spiriva Handihaler 5 Cap/Kit (18 Mcg/Cap)) 1 cap IH DAILY [facility] Stop: 05/15/18 09:59 Last Admin: 04/30/18 11:21 Dose: Not Given Documented by: Zolpidem Tartrate (Ambien 5 Mg Tablet) 10 mg PO HSP PRN PRN Reason: SLEEP OR INSOMNIA Stop: 05/05/18 19:54 Last Admin: 04/29/18 21:23 Dose: 10 mg Documented by: - Allergies Allergies/Adverse Reactions: No Known Allergies Allergy (Verified 01/28/18 17:01) - Diet/Activity Discharge Diet: Other (Comments) - The patient has nasogastric tube in place at this time. Tube feeding should be considered but I will defer to the physicians at [facility] for further action. Hospital Course Hospital Course: Patient's hospital course did show a noticeable improvement initially. The patient was on BiPAP and we were able to decrease the BiPAP slowly. Unfortunately she became more dyspneic. Over the last day or 2 she began exp eriencing increased shortness of breath. The BiPAP therapy was applied but it was not showing any improvement. Today the patient was seen by Dr. Corey. Because of her continued decline despite the BiPAP therapy it was decided that she be intubated. It is felt that the patient has septic shock likely based on a new pulmonary infiltrate superimposed on her pulmonary fibrosis. Her white blood cell count spiked from 10 this morning to 16 this afternoon. She was quite acidotic but this is slowly improving on PRVC. Unfortunately she requires levo fed and Rodrick-Synephrine vasopressors. This is causing peripheral vasoconstriction. She is receiving a an IV saline bolus to try and help her pr essure and decrease pressor support. Because of the critical nature of the patient, Dr. Corey suggested transfer. I did contact [facility]. They are accepting the patient in transfer. Physical Exam Vital Signs: Temp Pulse Resp BP Pulse Ox 99.3 F 103 H 28 H 63/22 L 99 04/30/18 16:00 04/30/18 16:00 04/30/18 16:00 04/30/18 16:00 04/30/18 16:00 Intake & Output 04/29/18 04/30/18 05/01/18 06:59 06:59 06:59 Intake Total 064 750 2915 Output Total 1225 1000 445 Balance -425 -671 609 Weight 77 kg 77.2 kg General appearance: PRESENT: other - Acutely ill appearing female intubated and resting in bed. Head exam: PRESENT: atraumatic, normocephalic Mouth exam: PRESENT: other - Endotracheal tube in place. Respiratory exam: PRESENT: rales - Bilaterally, other - Respiratory rate is purely ventilator driven. Decreased breath sounds at the bases. Cardiovascular exam: PRESENT: RRR, systolic murmur Pulses: PRESENT: other - Difficult to palpate any dorsalis pedis pulse. Likewise her radial pulses are decreased. She exhibits vasoconstriction with dusky discoloration. GI/Abdominal exam: PRESENT: normal bowel sounds, soft. ABSENT: tenderness Gentrourinary exam: PRESENT: indwelling catheter Extremities exam: PRESENT: other - As above Neurological exam: PRESENT: other - Sedated and paralyzed on the ventilator Skin exam: PRESENT: mottled Results Laboratory Results: 04/30/18 17:13 04/30/18 12:56 04/30/18 04/30/18 04/30/18 06:10 08:21 08:21 WBC 9.9 RBC 3.66 L Hgb 10.8 L Hct 33.0 L MCV 90 MCH 29.4 MCHC 32.7 RDW 16.6 H Plt Count 259 Seg Neutrophils % Lymphocytes % Monocytes % Eosinophils % Basophils % Absolute Neutrophils Absolute Lymphocytes Absolute Monocytes Absolute Eosinophils Absolute Basophils Carbonic Acid 1.20 HCO3/H2CO3 Ratio 20:1 ABG pH 7.41 ABG pCO2 39.9 ABG pO2 73.8 L ABG HCO3 24.5 H ABG O2 Saturation 95.0 ABG Base Excess -0.1 FiO2 100% Sodium 138.5 Potassium 3.9 Chloride 102 Carbon Dioxide 31 H Anion Gap 6 BUN 19 Creatinine 0.68 Est GFR ( Amer) > 60 Est GFR (Non-Af Amer) > 60 Glucose 103 Calcium 9.1 Magnesium Triglycerides 04/30/18 04/30/18 04/30/18 08:21 11:10 12:56 WBC Cancelled RBC Cancelled Hgb Cancelled Hct Cancelled MCV Cancelled MCH Cancelled MCHC Cancelled RDW Cancelled Plt Count Cancelled Seg Neutrophils % Cancelled Lymphocytes % Cancelled Monocytes % Cancelled Eosinophils % Cancelled Basophils % Cancelled Absolute Neutrophils Cancelled Absolute Lymphocytes Cancelled Absolute Monocytes Cancelled Absolute Eosinophils Cancelled Absolute Basophils Cancelled Carbonic Acid 1.32 HCO3/H2CO3 Ratio 14:1 ABG pH 7.26 L ABG pCO2 44.0 ABG pO2 98.8 ABG HCO3 19.3 L ABG O2 Saturation 96.6 ABG Base Excess -7.3 FiO2 100% Sodium Potassium Chloride Carbon Dioxide Anion Gap BUN Creatinine Est GFR ( Amer) Est GFR (Non-Af Amer) Glucose Calcium Magnesium Triglycerides 149 04/30/18 04/30/18 04/30/18 12:56 14:30 17:13 WBC 15.2 H RBC 3.52 L Hgb 10.3 L Hct 33.2 L MCV 95 D MCH 29.2 MCHC 30.9 L RDW 16.5 H Plt Count 168 Seg Neutrophils % Not Reportable Lymphocytes % Not Reportable Monocytes % Not Reportable Eosinophils % Not Reportable Basophils % Not Reportable Absolute Neutrophils Not Reportable Absolute Lymphocytes Not Reportable Absolute Monocytes Not Reportable Absolute Eosinophils Not Reportable Absolute Basophils Not Reportable Carbonic Acid 2.02 H HCO3/H2CO3 Ratio 10:1 ABG pH 7.14 L* ABG pCO2 67.2 H ABG pO2 99.0 ABG HCO3 22.2 ABG O2 Saturation 95.2 ABG Base Excess -7.6 FiO2 100% Sodium 137.7 Potassium 5.7 H D Chloride 104 Carbon Dioxide 20 L D Anion Gap 14 BUN 18 Creatinine 1.10 Est GFR ( Amer) > 60 Est GFR (Non-Af Amer) 49 L Glucose 273 H Calcium 8.9 Magnesium 2.6 H Triglycerides 04/30/18 17:55 WBC RBC Hgb Hct MCV MCH MCHC RDW Plt Count Seg Neutrophils % Lymphocytes % Monocytes % Eosinophils % Basophils % Absolute Neutrophils Absolute Lymphocytes Absolute Monocytes Absolute Eosinophils Absolute Basophils Carbonic Acid 0.95 L HCO3/H2CO3 Ratio 14:1 ABG pH 7.25 L ABG pCO2 31.5 L ABG pO2 129.3 H ABG HCO3 13.5 L ABG O2 Saturation 98.2 H ABG Base Excess -12.6 FiO2 100% Sodium Potassium Chloride Carbon Dioxide Anion Gap BUN Creatinine Est GFR ( Amer) Est GFR (Non-Af Amer) Glucose Calcium Magnesium Triglycerides 04/14/18 04/14/18 11:10 11:10 Troponin I 0.103 NT-Pro-B Natriuret Pep 53347 H Impressions: Chest CT 04/15/18 09:41 IMPRESSION: 1. Chronic changes of pulmonary fibrosis. 2. Previously noted faint ground-glass infiltrates have resolved. 3. Trace left pleural effusion, new. Chest X-Ray 04/30/18 16:16 IMPRESSION: No pneumothorax post right central line placement with the tip of the catheter in the right atrium Plan Discharge Plan: The patient will be transferred to [facility] intensive care unit.
[2018-04-30] MEDS ORDERED: VANCOMYCIN HCL 1,250 MG in DEXTROSE 5%-WATER 250 ML IV SCH (20:30)
--- NOTE | 2018-04-30 20:31 | Operative Report ---
Bedside Procedure - History of Present Illness History of Present Illness: JORGE LUIS GALEANO is a 68 year old female who was intubated this afternoon. She is in septic shock and requires vasopressors, fluid and antibiotic therapy. After she was intubated and a right femoral arterial line was placed I placed a right subclavian triple-lumen catheter. Indication for Procedure: Septic shock Date: 04/30/18 Surgeon: GUILLE BANUELOS - Central Line Right Subclavian Time completed: 16:15 Consent obtained: Yes Central line pre-insertion: Sterile PPE donned, Chloraprep applied, Sterile drapes applied Central line lumen type: Triple Anesthetic type: 1% Lidocaine w/epi mL's of anesthesia: 5 Ultrasound guided: No Line secured with sutures: Yes Central line post-insertion: Blood return from lumens, Biopatch applied, Sutured, Sterile dressing applied, Position confirmed w/ CXR Number of attempts: 1 Complications: No Notes: 04/30/18 20:25 The patient was experiencing septic shock and required vasopressor therapy as well as sedation, antibiotics and intravenous fluid. After consent was obtained using the Seldinger technique I inserted a right subclavian vein triple-lumen catheter without difficulty. All 3 lumens showed blood return and flushed easily. Chest x-ray confirmed placement. The catheter hub was sutured in place. Biopatch was applied and a sterile dressing covered the site. The patient tolerated the procedure without difficulty. She was intubated and sedated.
[2018-04-30] MEDS ORDERED: DOPAMINE HCL/DEXTROSE 5%-WATER 800 MG/250 ML RTUINJ IV ONE (20:48)
[2018-04-30] MEDS ORDERED: ALBUTEROL SULFATE 0.083% NEB 2.5 MG/3 ML AMPUL NEB ONE (20:56)
[2018-04-30] MEDS ORDERED: DEXTROSE 50%-WATER 25 GM/50 ML DISP.SYRIN IV ONE ×3 (21:03→23:59)
[2018-04-30 21:33] LABS: CREATINE KINASE MB 17.7 ng/mL (<4.55)
[2018-04-30 21:39] LABS: ANION GAP 13 (5-19); BLOOD UREA NITROGEN 27 mg/dL (7-20); CALCIUM 7.8 mg/dL (8.4-10.2); CARBON DIOXIDE 21 mmol/L (22-30); CHLORIDE 102 mmol/L (98-107); CREATINE KINASE 143 U/L (30-135); GLUCOSE 80 mg/dL (75-110); SODIUM 135.6 mmol/L (137-145)
[2018-04-30 21:49] LABS: POTASSIUM 8.7 mmol/L (3.6-5.0); TROPONIN I 6.96 ng/mL
[2018-04-30] MEDS ORDERED: SODIUM POLYSTYRENE SULFONATE 15 GM/60 ML ONE (21:50)
[2018-04-30] MEDS ORDERED: CARVEDILOL 12.5 MG TABLET NG SCH (22:00)
[2018-04-30] MEDS ORDERED: GABAPENTIN 300 MG CAPSULE NG SCH (22:00)
[2018-04-30] MEDS ORDERED: INSULIN REG, HUMAN 100 UNIT/ML 3 ML VIAL (PYX) ONE (22:56)
[2018-04-30] MEDS ORDERED: SODIUM BICARBONATE 8.4% INJ 50 MEQ/50 ML DISP.SYRIN ONE (22:57)
[2018-04-30] MEDS ORDERED: SODIUM BICARBONATE 8.4% INJ 50 MEQ/50 ML DISP.SYRIN IV ONE (23:59)
[2018-04-30] MEDS ORDERED: INSULIN REG, HUMAN 100 UNIT/ML 3 ML VIAL IV ONE (23:59)
[2018-05-01] MEDS ORDERED: FAMOTIDINE 20 MG TABLET NG SCH
[2018-05-01] MEDS ORDERED: LANSOPRAZOLE 30 MG TAB.RAP.DR NG SCH (06:00)
--- NOTE | 2018-05-01 07:49 | EKG REPORT ---
SEVERITY:- ABNORMAL ECG - SINUS RHYTHM PROBABLE LEFT ATRIAL ABNORMALITY BORDERLINE PROLONGED QT INTERVAL NONSPECIFIC ST-T CHANGES ANT-LAT LEADS : Confirmed by: Julián Cardoza MD 01-May-2018 07:48:14
[2018-05-01] MEDS ORDERED: PREDNISONE 20 MG TABLET NG SCH (10:00)
[2018-05-01] MEDS ORDERED: FERROUS SULFATE LIQUID 300 MG/5 ML UDC NG SCH (10:00)
== END 2018-04-30 23:20 | disposition short-term general hospital (02) | DRG 208 ==
LOC: ER 11:00 → EH 13:34 → ICU 14:43 → 3W 04-17 17:07 → ICU 04-30 09:10
PROVIDERS: ADMIT Hospitalist; ATTEND Hospitalist
PROC: 5A09557 Assistance with Respiratory Ventilation, Greater than 96 Consecutive Hours, Continuous Positive Airway Pressure (ICD-10-PCS; 2018-04-14)
PROC: 3E0F73Z Introduction of Anti-inflammatory into Respiratory Tract, Via Natural or Artificial Opening (ICD-10-PCS; 2018-04-14)
PROC: 5A1935Z Respiratory Ventilation, Less than 24 Consecutive Hours (ICD-10-PCS; principal; 2018-04-30)
PROC: 0BH17EZ Insertion of Endotracheal Airway into Trachea, Via Natural or Artificial Opening (ICD-10-PCS; 2018-04-30)
PROC: 04HK33Z Insertion of Infusion Device into Right Femoral Artery, Percutaneous Approach (ICD-10-PCS; 2018-04-30)
PROC: 02H633Z Insertion of Infusion Device into Right Atrium, Percutaneous Approach (ICD-10-PCS; 2018-04-30)
DX: J96.00 Acute respiratory failure, unspecified whether with hypoxia or hypercapnia (principal); R65.21 Severe sepsis with septic shock; A41.9 Sepsis, unspecified organism; J15.8 Pneumonia due to other specified bacteria; J90 Pleural effusion, not elsewhere classified; I42.9 Cardiomyopathy, unspecified; J84.9 Interstitial pulmonary disease, unspecified; K44.9 Diaphragmatic hernia without obstruction or gangrene; I25.10 Atherosclerotic heart disease of native coronary artery without angina pectoris; I34.0 Nonrheumatic mitral (valve) insufficiency; F32.9 Major depressive disorder, single episode, unspecified; J84.10 Pulmonary fibrosis, unspecified; K21.9 Gastro-esophageal reflux disease without esophagitis; E87.5 Hyperkalemia; E83.42 Hypomagnesemia; F41.1 Generalized anxiety disorder; J20.9 Acute bronchitis, unspecified; G47.00 Insomnia, unspecified; I27.20 Pulmonary hypertension, unspecified; Z87.891 Personal history of nicotine dependence; Z91.14 Patient's other noncompliance with medication regimen; Z78.1 Physical restraint status; Z79.899 Other long term (current) drug therapy; Z90.49 Acquired absence of other specified parts of digestive tract; Z80.9 Family history of malignant neoplasm, unspecified; Z82.49 Family history of ischemic heart disease and other diseases of the circulatory system
CPT/HCPCS: 31500; 36415; 36600; 71045; 71250; 80048; 80053; 81001; 82550; 82553; 82803; 82962; 83605; 83735; 83880; 84100; 84478; 84484; 85025; 85027; 85610; 85730; 87040; 87070; 87086; 87205; 93005; 93010; 93306; 94002; 94660; 94667; 94668; 94799; 96374; 99291; C1752; G8978-GP; G8979-GP; J0330; J0610; J0696; J1265; J1644; J1815; J2250; J2370; J2543; J2704; J2930; J3490; J7030; J7040; J7060; J7512